=== PATIENT | male | born 1945 | race Asian ===

== ENCOUNTER 2018-06-22 18:33 | Inpatient (IN) | payer OTHER, BC ==
--- NOTE | 2018-06-22 19:27 | PDOC ---
History of Present Illness - General Chief Complaint: Cold Symptoms Stated Complaint: COLD SYMPTOMS Time Seen by Provider: 06/22/18 19:08 Past History - Past Medical History Allergies/Adverse Reactions: Allergies Allergy/AdvReac Type Severity Reaction Status Date / Time No Known Allergies Allergy Verified 06/22/18 18:48 COPD: No Diabetes: Yes HTN: Yes - Surgical History Cholecystectomy: No Lung Surgery: No - Immunization History Immunization Up to Date: No - Suicide/Smoking/Psychosocial Hx Smoking History: Never smoked Have you smoked in the past 12 months: No Information on smoking cessation initiated: No Hx Alcohol Use: No Drug/Substance Use Hx: No *Physical Exam - Vital Signs Last Vital Signs Temp Pulse Resp BP Pulse Ox 99.2 F 125 H 16 123/72 97 06/22/18 18:44 06/22/18 18:44 06/22/18 18:44 06/22/18 18:44 06/22/18 18:44 Moderate Sedation - Procedure Monitoring Vital Signs: Procedure Monitoring Vital Signs Temperature 99.2 F 06/22/18 18:44 Pulse Rate 125 H 06/22/18 18:44 Respiratory Rate 16 06/22/18 18:44 Blood Pressure 123/72 06/22/18 18:44 O2 Sat by Pulse Oximetry (%) 97 06/22/18 18:44 *DC/Admit/Observation/Transfer - Discharge Dispostion Condition at time of disposition: Stable - Referrals - Patient Instructions - Post Discharge Activity
[2018-06-22] MEDS ORDERED: ACETAMINOPHEN 500 MG TABLET (FP) PO ONE (19:53)
[2018-06-22] MEDS ORDERED: ALBUTEROL SO4 2.5/IPRATROPIUM 0.5 INH SOL 3 ML VIAL.NEB. NEB ONE ×3 (20:08→23:39)
[2018-06-22] MEDS ORDERED: CEFTRIAXONE 1 GM in DEXTROSE 5%-WATER - 50 ML IVPB ONE (20:09)
[2018-06-22] MEDS ORDERED: AZITHROMYCIN IVPB 500 MG in DEXTROSE 5%-WATER - 250 ML IVPB ONE (20:09)
[2018-06-22] MEDS ORDERED: ACETAMINOPHEN 1000 MG/100 ML VIAL (NON FORMULARY) IVPB ONE (20:11)
[2018-06-22 20:20] LABS: BASO % 0.6 % (0-2.0); EOS % 3.3 % (0-4.5); HEMATOCRIT 37.9 % (35.4-49); LYMPH % 16.5 % (8-40); MCH 28.4 pg (25.7-33.7); MCHC 34.4 g/dl (32.0-35.9); MEAN CELL VOLUME 82.7 fl (80-96); MEAN PLT VOLUME 7.8 fl (7.5-11.1); MONO % 16.8 % (3.8-10.2); NEUT % 62.8 % (42.8-82.8); PLATELET COUNT 266 K/MM3 (134-434); RBC 4.58 M/mm3 (4.00-5.60); WHITE BLOOD COUNT 8.7 K/mm3 (4.0-10.0)
[2018-06-22] MEDS ORDERED: ACETAMINOPHEN INJECTION 100 ML IVPB ONE (20:21)
[2018-06-22] MEDS ORDERED: AZITHROMYCIN IVPB 500 MG/250 ML BAG IVPB ONE (20:21)
[2018-06-22 20:22] LABS: VENOUS PC02 46.2 mmHg (38-52); VENOUS PH 7.36 (7.32-7.42); VENOUS PO2 37.1 mmHg (28-48)
[2018-06-22] MEDS ORDERED: CEFTRIAXONE 1 GM/50 ML BAG ONE (20:22)
--- NOTE | 2018-06-22 20:26 | PDOC ---
History of Present Illness <Miranda Craig - Last Filed: 06/22/18 21:17> - General History Source: Patient Exam Limitations: No Limitations - History of Present Illness Initial Comments: 06/22/18 20:09 Patient is a 73-year-old male with history of Laughlin's palsy left, diabetes, HTN, brought in by family for complaint of a cough 3 weeks. Patient was away visiting in [place] when he developed this cough, initially was productive of yellow sputum, however now nonproductive. States he's been having body ache, felt hot and cold, but did not take his temperature. Yesterday, had several doses of Motrin. Denies dysuria, nausea, vomiting, chest pain. PMHX: as above. GENERAL/CONSTITUTIONAL: HEAD, EYES, EARS, NOSE AND THROAT: [No change in vision. No ear pain or discharge. No sore throat.] CARDIOVASCULAR: [No chest pain or shortness of breath.] RESPIRATORY: (+) cough, wheezing, (-) hemoptysis.] GASTROINTESTINAL: [No nausea, vomiting, diarrhea or constipation. No rectal bleeding.] GENITOURINARY: [No dysuria, frequency, or change in urination.] MUSCULOSKELETAL: (+) joint or muscle pain. (+) neck or back pain.] SKIN AND BREASTS: [No rash or easy bruising.] NEUROLOGIC: [No headache, vertigo, loss of consciousness, or loss of sensation.] PSYCHIATRIC: [No depression or anxiety.] ENDOCRINE: [No increased thirst. No abnormal weight change.] HEMATOLOGIC/LYMPHATIC: [No anemia, easy bleeding, or history of blood clots.] ALLERGIC/IMMUNOLOGIC: [No hives or skin allergy. No latex allergy.] GENERAL: [The patient is awake, alert, and fully oriented, in no acute distress. ] HEAD: [Normal with no signs of trauma.] EYES: [Pupils equal, round and reactive to light, extraocular movements intact, sclera anicteric, conjunctiva clear.] ENT: [Ears normal, nares patent, oropharynx clear without exudates. Moist mucous membranes.] NECK: [Normal range of motion, supple without lymphadenopathy, JVD, or masses.] LUNGS: (+) wheezing left, no crackles.] HEART: [Regular rate and rhythm, normal S1 and S2 without murmur, rub.] ABDOMEN: [Soft, nontender, normoactive bowel sounds. No guarding, no rebound. No masses.] EXTREMITIES: [Normal range of motion, no edema. No clubbing or cyanosis. No cords, erythema, or tenderness.] NEUROLOGICAL: [Cranial nerves II through XII grossly intact. Normal speech, normal gait.] PSYCH: [Normal mood, normal affect.] SKIN: [Warm, Dry, normal turgor, no rashes or lesions noted.] <Rinku Griffin - Last Filed: 06/22/18 22:22> <Halley Rehman - Last Filed: 06/23/18 00:47> - General Chief Complaint: Cold Symptoms Stated Complaint: COLD SYMPTOMS Time Seen by Provider: 06/22/18 19:08 Past History <Miranda Craig - Last Filed: 06/22/18 21:17> - Past Medical History COPD: No Diabetes: Yes HTN: Yes - Surgical History Cholecystectomy: No Lung Surgery: No - Immunization History Immunization Up to Date: No - Suicide/Smoking/Psychosocial Hx Smoking History: Never smoked Have you smoked in the past 12 months: No Information on smoking cessation initiated: No Hx Alcohol Use: No Drug/Substance Use Hx: No <Rinku Griffin - Last Filed: 06/22/18 22:22> <Halley Rehman - Last Filed: 06/23/18 00:47> - Past Medical History Allergies/Adverse Reactions: Allergies Allergy/AdvReac Type Severity Reaction Status Date / Time No Known Allergies Allergy Verified 06/22/18 18:48 Home Medications: Ambulatory Orders Glipizide 5 mg PO DAILY 06/22/18 Losartan Potassium 100 mg PO DAILY 06/22/18 Metformin HCl [Glucophage] 500 mg PO BID 06/22/18 Sitagliptin Phosphate [Januvia] 50 mg PO DAILY 06/22/18 *Physical Exam - Vital Signs Last Vital Signs Temp Pulse Resp BP Pulse Ox 100.8 F H 115 H 22 H 131/61 97 06/22/18 21:00 06/22/18 21:00 06/22/18 21:00 06/22/18 21:00 06/22/18 21:00 <Miranda Craig - Last Filed: 06/22/18 21:17> - Vital Signs Last Vital Signs Temp Pulse Resp BP Pulse Ox 101 F H 119 H 20 135/67 97 06/22/18 19:38 06/22/18 19:38 06/22/18 19:38 06/22/18 19:38 06/22/18 19:38 <Rinku Griffin - Last Filed: 06/22/18 22:22> - Vital Signs Last Vital Signs Temp Pulse Resp BP Pulse Ox 101 F H 119 H 20 135/67 97 06/22/18 19:38 06/22/18 19:38 06/22/18 19:38 06/22/18 19:38 06/22/18 19:38 <Halley Rehman - Last Filed: 06/23/18 00:47> Moderate Sedation - Procedure Monitoring Vital Signs: Procedure Monitoring Vital Signs Temperature 100.8 F H 06/22/18 21:00 Pulse Rate 115 H 06/22/18 21:00 Respiratory Rate 22 H 06/22/18 21:00 Blood Pressure 131/61 06/22/18 21:00 O2 Sat by Pulse Oximetry (%) 97 06/22/18 21:00 <Miranda Craig - Last Filed: 06/22/18 21:17> - Procedure Monitoring Vital Signs: Procedure Monitoring Vital Signs Temperature 101 F H 06/22/18 19:38 Pulse Rate 119 H 06/22/18 19:38 Respiratory Rate 20 06/22/18 19:38 Blood Pressure 135/67 06/22/18 19:38 O2 Sat by Pulse Oximetry (%) 97 06/22/18 19:38 <Rinku Griffin - Last Filed: 06/22/18 22:22> - Procedure Monitoring Vital Signs: Procedure Monitoring Vital Signs Temperature 101 F H 06/22/18 19:38 Pulse Rate 119 H 06/22/18 19:38 Respiratory Rate 20 06/22/18 19:38 Blood Pressure 135/67 06/22/18 19:38 O2 Sat by Pulse Oximetry (%) 97 06/22/18 19:38 <Halley Rehman - Last Filed: 06/23/18 00:47> ED Treatment Course - LABORATORY CBC & Chemistry Diagram: 06/22/18 19:58 06/22/18 19:58 - ADDITIONAL ORDERS Additional order review: Laboratory Results 06/22/18 06/22/1819 19:58 19:58 19:58 PT with INR 13.10 H INR 1.11 H VBG pH 7.36 POC VBG pCO2 46.2 POC VBG pO2 37.1 Mixed VBG HCO3 25.4 H Sodium Potassium Chloride Carbon Dioxide Anion Gap BUN Creatinine Creat Clearance w eGFR Random Glucose Lactic Acid Calcium Total Bilirubin AST ALT Alkaline Phosphatase Creatine Kinase 392 H Creatine Kinase Index 0.9 CK-MB (CK-2) 3.8 H Troponin I 0.08 H Total Protein Albumin 06/22/18 06/22/18 19:58 19:58 PT with INR INR VBG pH POC VBG pCO2 POC VBG pO2 Mixed VBG HCO3 Sodium 129 L Potassium 4.6 Chloride 95 L Carbon Dioxide 23 Anion Gap 11 BUN 10 Creatinine 0.7 Creat Clearance w eGFR > 60 Random Glucose 179 H Lactic Acid 3.9 H* Calcium 8.9 Total Bilirubin 0.3 AST 26 ALT 32 Alkaline Phosphatase 63 Creatine Kinase Creatine Kinase Index CK-MB (CK-2) Troponin I Total Protein 7.6 Albumin 3.6 06/22/18 19:58 RBC 4.58 MCV 82.7 MCHC 34.4 RDW 14.0 MPV 7.8 Neutrophils % 62.8 Lymphocytes % 16.5 Monocytes % 16.8 H Eosinophils % 3.3 Basophils % 0.6 - Medications Given in the ED: ED Medications Discontinued Medications Generic Name Dose Route Start Last Admin Trade Name Nohelia PRN Reason Stop Dose Admin Acetaminophen 975 mg 06/22/18 19:53 06/22/18 20:46 Tylenol - PO 06/22/18 19:54 Not Given ONCE ONE Acetaminophen 1,000 mg 06/22/18 20:11 06/22/18 20:35 Ofirmev Injection - IVPB 06/22/18 20:12 1,000 mg ONCE ONE Administration Albuterol/Ipratropium 1 amp 06/22/18 20:08 06/22/18 20:25 Duoneb - NEB 06/22/18 20:09 1 amp ONCE ONE Administration Aspirin 325 mg 06/22/18 21:02 06/22/18 21:09 Ecotrin - PO 06/22/18 21:03 325 mg ONCE ONE Administration Azithromycin 500 mg/ Dextrose 250 mls @ 250 mls/hr 06/22/18 20:09 06/22/18 21 :01 IVPB 06/22/18 21:08 250 mls/hr ONCE ONE Administration Ceftriaxone Sodium 1 gm/ 50 mls @ 100 mls/hr 06/22/18 20:09 06/22/18 20:35 Dextrose IVPB 06/22/18 20:38 100 mls/hr ONCE ONE Administration Metoprolol Tartrate 5 mg 06/22/18 21:02 06/22/18 21:00 Lopressor Injection - IVPUSH 06/22/18 21:03 5 mg ONCE ONE Administration - Additional Consults Time Called: 21:17 (called service for [facility] cardiology) Consult/PCP: Dr. Lenz (Cardiology- [facility]) <Miranda Craig - Last Filed: 06/22/18 21:17> - LABORATORY CBC & Chemistry Diagram: 06/22/18 19:58 06/22/18 19:58 <Rinku Griffin - Last Filed: 06/22/18 22:22> - LABORATORY CBC & Chemistry Diagram: 06/22/18 19:58 06/22/18 19:58 - ADDITIONAL ORDERS Additional order review: Laboratory Results 06/22/18 06/22/18 06/22/18 19:58 19:58 19:58 PT with INR 13.10 H INR 1.11 H VBG pH 7.36 POC VBG pCO2 46.2 POC VBG pO2 37.1 Mixed VBG HCO3 25.4 H Sodium Potassium Chloride Carbon Dioxide Anion Gap BUN Creatinine Creat Clearance w eGFR Random Glucose Calcium Total Bilirubin AST ALT Alkaline Phosphatase Creatine Kinase 392 H Troponin I 0.08 H Total Protein Albumin 06/22/18 19:58 PT with INR INR VBG pH POC VBG pCO2 POC VBG pO2 Mixed VBG HCO3 Sodium 129 L Potassium 4.6 Chloride 95 L Carbon Dioxide 23 Anion Gap 11 BUN 10 Creatinine 0.7 Creat Clearance w eGFR > 60 Random Glucose 179 H Calcium 8.9 Total Bilirubin 0.3 AST 26 ALT 32 Alkaline Phosphatase 63 Creatine Kinase Troponin I Total Protein 7.6 Albumin 3.6 06/22/18 19:58 RBC 4.58 MCV 82.7 MCHC 34.4 RDW 14.0 MPV 7.8 Neutrophils % 62.8 Lymphocytes % 16.5 Monocytes % 16.8 H Eosinophils % 3.3 Basophils % 0.6 - Medications Given in the ED: ED Medications Discontinued Medications Generic Name Dose Route Start Last Admin Trade Name Nohelia PRN Reason Stop Dose Admin Acetaminophen 975 mg 06/22/18 19:53 06/22/18 20:46 Tylenol - PO 06/22/18 19:54 Not Given ONCE ONE Acetaminophen 1,000 mg 06/22/18 20:11 06/22/18 20:35 Ofirmev Injection - IVPB 06/22/18 20:12 1,000 mg ONCE ONE Administration Albuterol/Ipratropium 1 amp 06/22/18 20:08 06/22/18 20:25 Duoneb - NEB 06/22/18 20:09 1 amp ONCE ONE Administration Ceftriaxone Sodium 1 gm/ 50 mls @ 100 mls/hr 06/22/18 20:09 06/22/18 20:35 Dextrose IVPB 06/22/18 20:38 100 mls/hr ONCE ONE Administration <Halley Rehman - Last Filed: 06/23/18 00:47> Medical Decision Making - Medical Decision Making 06/22/18 20:09 Patient is a 73-year-old male with history of Laughlin's palsy left, diabetes, HTN, brought in by family for complaint of a cough 3 weeks. Patient was away visiting in [place] when he developed this cough, initially was productive of yellow sputum, however now nonproductive. States he's been having body ache, felt hot and cold, but did not take his temperature. Yesterday, had several doses of Motrin. Denies dysuria, nausea, vomiting. Symptoms consistent with SIRs labs, cxr, ua, ivf, tylenol reasess 06/22/18 22:17 Labs reviewed noted to have elevated trop EKG ST rate 121, NAD, (-) ST-T wave changes cxr neg Na+ 129 will continue IVF will admit to hosp <Rinku Griffin - Last Filed: 06/22/18 22:22> - Medical Decision Making 06/22/18 21:08 EKG normal; HR still 120 despite ofirmev; and IVF; prob spilling enzymes due to tachy. We are treating with betablocker and asa; will repeat EKG and get a cardio consult. Pt was treated with zithromax/ceftriaxone, as he has cough - will rx atypical, but will also rx typhoid. 06/22/18 21:14 Cardio consult states not to rx with betablocker (we canceled the order of IVP) not to use heparin either, as pt has no clots or unstable anginal sx. We agree that this is demand ischemia. ICU accepted the patient 06/22/18 21:29 Dr. Cody GARRETT is aware; he is requesting hospitalist admission. <Halley Rehman - Last Filed: 06/23/18 00:47> *DC/Admit/Observation/Transfer <Miranda Craig - Last Filed: 06/22/18 21:17> <Rinku Griffin - Last Filed: 06/22/18 22:22> - Discharge Dispostion Decision to Admit order: Yes <Halley Rehman - Last Filed: 06/23/18 00:47> Diagnosis at time of Disposition: Tachycardia, Cough, Travel-related illness, Hyponatremia Myocardial infarction Qualifiers: Myocardial infarction type: unspecified Involved coronary artery: unspecified coronary artery Qualified Code(s): I21.9 - Acute myocardial infarction, unspecified Fever Qualifiers: Fever type: unspecified Qualified Code(s): R50.9 - Fever, unspecified Sepsis Qualifiers: Sepsis type: sepsis due to unspecified organism Qualified Code(s): A41.9 - Sepsis, unspecified organism - Discharge Dispostion Condition at time of disposition: Guarded
[2018-06-22 20:33] LABS: INR 1.11 (0.83-1.09); PROTHROMBIN TIME (PATIENT) 13.1 SEC (9.7-13.0)
[2018-06-22 20:51] LABS: ALBUMIN 3.6 g/dl (3.4-5.0); ALK PHOS 63 U/L (45-117); ANION GAP 11 MMOL/L (8-16); BILIRUBIN,TOTAL 0.3 mg/dL (0.2-1); BLOOD UREA NITROGEN 10 mg/dL (7-18); CALCIUM 8.9 mg/dL (8.5-10.1); CHLORIDE 95 mmol/L (98-107); CO2 23 mmol/L (21-32); CREATININE 0.7 mg/dL (0.55-1.3); GLUCOSE,RANDOM 179 mg/dL (74-106); POTASSIUM 4.6 mmol/L (3.5-5.1); SGOT/AST 26 U/L (15-37); SGPT/ALT 32 U/L (13-61); SODIUM 129 mmol/L (136-145); TOT PROT 7.6 g/dl (6.4-8.2)
[2018-06-22] MEDS ORDERED: METOPROLOL TARTRATE 5 MG/5 ML VIAL IVPUSH ONE (21:02)
[2018-06-22] MEDS ORDERED: ASPIRIN 325 MG ENTERIC COATED TABLET (FP) PO ONE (21:02)
[2018-06-22] MEDS ORDERED: ASPIRIN 325 MG ENTERIC COATED TABLET (FP) ONE (21:06)
[2018-06-22] MEDS ORDERED: METOPROLOL TARTRATE 5 MG/5 ML VIAL ONE (21:06)
[2018-06-22] MEDS ORDERED: SODIUM CHLORIDE 0.9% 500 ML INFUS.BAG IV ONE (21:12)
[2018-06-22 21:50] LABS: URINE APPEARANCE CLEAR; URINE BILIRUBIN NEGATIVE (<2.0 mg/dL); URINE COLOR YELLOW; URINE GLUCOSE (UA) 1+ (NEGATIVE); URINE KETONE NEGATIVE (NEGATIVE); URINE LEUK ESTERASE NEGATIVE (NEGATIVE); URINE NITRITE NEGATIVE (NEGATIVE); URINE PROTEIN NEGATIVE (NEGATIVE); URINE UROBILINOGEN NEGATIVE mg/dL (0.2-1.0)
--- NOTE | 2018-06-22 23:14 | PN ---
Teaching Attending Note Name of Resident: Lindsey Cosby ATTENDING PHYSICIAN STATEMENT I saw and evaluated the patient. I reviewed the resident's note and discussed the case with the resident. I agree with the resident's findings and plan as documented. SUBJECTIVE: OBJECTIVE: AAOX3 s1 and s2 RRR abdomen soft non-tender lungs CTA good air entry no edema dry mucous membrane ASSESSMENT AND PLAN: 73 y/o male with hx of CAD, HTN, DL, and DM presented for productive cough initially and now dry cough that has been going on for the past few weeks prior to his arrival from [facility], patient stated has been feeling warm and the fever is not resolving and decided to come to the ER for further evaluation. patient was found to have SIRS with sepsis, metabolic acidosis 2/2 lactic acidosis, elevated troponin 2.2 to tachycardia plan: admit to the MICU SIRS with sepsis - start patient on levofloxacin 750mg daily - ID consultation Elevated troponin 2/2 to type II CO - patient is tachycardic 2/2 to sepsis - iv fluid hydration - trend the tropnin - trend ECG - patient might benefit from asprin - no heparin drip at this time - f/u with cardiology if the troponin are elevated - obtain echocardiogram Metabolic acidosis 2/2 to elevated lactic acid - IVF 20ml/kg/hr - trend lactic acid x3 hours until it clears Hypotension 2/2 sepsis: - IVF hydration - patient might require central line and vasopressors if there is no response to the fluids DM: ISS - better control of Diabetes in septic patient HTN; - hold medication DL c/w statin CAD - c/w asprin if there is no bleeding
[2018-06-22] MEDS ORDERED: SODIUM CHLORIDE 1,000 ML IV SCH (23:15)
[2018-06-22] MEDS ORDERED: SODIUM CHLORIDE 1,000 ML IV STA (23:25)
--- NOTE | 2018-06-22 23:28 | HP ---
CHIEF COMPLAINT: cough x 2 weeks PCP: HISTORY OF PRESENT ILLNESS: 73 y/o M with PMH L sided Laughlin's Palsy, Type 2 DM, HTN, who presents to the ED c /o two week hx of cough. As per pt and family, he recently returned from [place], initially with a productive cough with yellow sputum (no blood), which has since become nonproductive. During this time, he also endorses subjective fevers and generalized myalgias. His sx were not alleviated with multiple doses of advil; he took two yesterday, and two the day prior. Most of hx as per family members. Denies sick contacts, current FISCHER, chills, SOB, chest pain or pressure, or changes in urinary or bowel function. ER course was notable for: (1) Tylenol (2) Duonebs (3) Cef, zithro (4) Lopressor 5mg IVP x 1 (5) NS Recent Travel: from [place] PAST MEDICAL HISTORY: as above PAST SURGICAL HISTORY: denies Social History: Smoking: denies Alcohol: denies Drugs: denies Family History: Allergies No Known Allergies Allergy (Verified 06/22/18 18:48) HOME MEDICATIONS: Home Medications Medication Instructions Recorded Glipizide 5 mg PO DAILY 06/22/18 Losartan Potassium 100 mg PO DAILY 06/22/18 Metformin HCl [Glucophage] 500 mg PO BID 06/22/18 Sitagliptin Phosphate [Januvia] 50 mg PO DAILY 06/22/18 verified with family at bedside REVIEW OF SYSTEMS CONSTITUTIONAL: +subjective fever Absent: fever, chills, diaphoresis, generalized weakness, malaise, loss of appetite, weight change HEENT: Absent: rhinorrhea, nasal congestion, throat pain, throat swelling, difficulty swallowing, mouth swelling, ear pain, eye pain, visual changes CARDIOVASCULAR: Absent: chest pain, syncope, palpitations, irregular heart rate, lightheadedness , peripheral edema RESPIRATORY: +cough Absent: cough, shortness of breath, dyspnea with exertion, orthopnea, wheezing, stridor, hemoptysis GASTROINTESTINAL: Absent: abdominal pain, abdominal distension, nausea, vomiting, diarrhea, constipation, melena, hematochezia GENITOURINARY: Absent: dysuria, frequency, urgency, hesitancy, hematuria, flank pain, genital pain MUSCULOSKELETAL: +myalgia Absent: myalgia, arthralgia, joint swelling, back pain, neck pain SKIN: Absent: rash, itching, pallor HEMATOLOGIC/IMMUNOLOGIC: Absent: easy bleeding, easy bruising, lymphadenopathy, frequent infections ENDOCRINE: Absent: unexplained weight gain, unexplained weight loss, heat intolerance, cold intolerance NEUROLOGIC: Absent: headache, focal weakness or paresthesias, dizziness, unsteady gait, seizure, mental status changes, bladder or bowel incontinence PSYCHIATRIC: Absent: anxiety, depression, suicidal or homicidal ideation, hallucinations. PHYSICAL EXAMINATION Vital Signs 06/22/18 06/22/18 06/22/18 18:44 19:38 21:00 Temperature 99.2 F 101 F H 100.8 F H Pulse Rate 125 H Pulse Rate [ 119 H 115 H Apical] Respiratory 16 20 22 H Rate Blood Pressure 123/72 131/61 Blood Pressure 135/67 131/61 [Right Arm] O2 Sat by Pulse 97 97 97 Oximetry (%) 06/22/18 06/22/18 21:29 21:56 Temperature 99.8 F H Pulse Rate Pulse Rate [ 112 H 112 H Apical] Respiratory 20 22 H Rate Blood Pressure Blood Pressure 101/55 L 97/58 L [Right Arm] O2 Sat by Pulse 99 96 Oximetry (%) GENERAL: Pleasant. resting in bed, on venti-mask HEAD: Normal with no signs of trauma. EYES: Pupils equal, round and reactive to light, extraocular movements intact, sclera anicteric, conjunctiva clear. EARS, NOSE, THROAT: Ears normal, nares patent, oropharynx clear without exudates. Dry mucous membranes NECK: Normal range of motion, supple without lymphadenopathy, JVD, or masses. LUNGS: +intermittent cough. with scattered wheezes appreciated anteriorly. otherwise CTA. no accessory m usage HEART: Regular rate and rhythm, normal S1 and S2 without murmur, rub or gallop. ABDOMEN: Soft, obese, nontender, not distended, normoactive bowel sounds UPPER EXTREMITIES: 2+ pulses, warm, well-perfused. No cyanosis. No clubbing. No peripheral edema. NEUROLOGICAL: Cranial nerves II-XII intact. PSYCHIATRIC: Cooperative. Good eye contact. SKIN: Warm, dry, normal turgor Laboratory Results 06/22/18 06/22/18 06/22/18 18:50 18:50 19:58 WBC 8.7 Hgb 13.0 Hct 37.9 Plt Count 266 Urine Glucose (UA) Influenza A (Rapid) Negative Influenza B (Rapid) Negative Group A Strep Rapid Negative 06/22/18 06/22/18 06/22/18 19:58 19:58 20:45 Plt Count Lactic Acid 3.9 H* Creatine Kinase 392 H CK-MB (CK-2) 3.8 H Troponin I 0.08 H Urine Glucose (UA) 1+ H Influenza A (Rapid) 06/22/18 06/22/18 22:05 22:05 Lactic Acid 2.9 H* Creatine Kinase CK-MB (CK-2) Troponin I 0.10 H CXR: without evidence of effusions, or infiltrates - my read. official read pending EKG: sinus tach, vent rate 121bpm, without st-t wave changes. qtc 441ms ASSESSMENT/PLAN: 73 y/o M with PMH L sided Laughlin's Palsy, Type 2 DM, HTN, who presents to the ED c /o two week hx of a nonproductive cough. #sepsis 2/2 possible PNA -without white ct, however tachycardic, possible source infection - PNA as with cough. not seen on CXR however may be developing -cont CAP tx. received cef, zithro in ED. c/w levaquin 750mg IVPB qd -f/u blood, urine, sputum, throat cx, legionella -adequate vol resuscitation - will give 1L bolus, then start on 125 cc/hr. cont to follow lactic, has been trending down. -f/u AM CXR -ID consult: Dr. Herron #elevated troponin likely 2/2 demand from sepsis -likely 2/2 sepsis, however will cont to trend. currently asymptomatic without chest pain -f/u serial EKGs to check if develop ST-T wave changes -0.08>0.10 -will contact cardio if does not improve -f/u ECHO to assess for LV function temitope in setting of giving fluids #type 2 DM -ISS -BGM ACHS #HTN -will hold losartan at this time d/t labile BP -may require pressors if does not improve #likely CAD -c/w asa 81mg qd -f/u lipid profile. based on ASCVD can then start statin if needed #hyponatremia -f/u legionella Ag -cont with IV NS, monitor #F/E/N IV NS : will give 1L NS and then start on 125 cc/hr. continue to follow lytes NPO #PPX Hep 5000 SQ TID #Dispo admit to ICU as pt with labile BP may require pressor support if does not improve Visit type - Emergency Visit Emergency Visit: Yes ED Registration Date: 06/22/18 Care time: The patient presented to the Emergency Department on the above date and was hospitalized for further evaluation of their emergent condition. - New Patient This patient is new to me today: Yes Date on this admission: 06/23/18 - Critical Care Critical Care patient: Yes Total Critical Care Time (in minutes): 40 Critical Care Statement: The care of this patient involved high complexity decision making to prevent further life threatening deterioration of the patient 's condition and/or to evaluate & treat vital organ system(s) failure or risk of failure.
--- NOTE | 2018-06-22 23:55 | CONSULT ---
Consult Consult Specialty:: ICU Referred by:: aissatou Reason for Consultation:: hypotensive, troponinemia - History of Present Illness Chief Complaint: productive cough History of Present Illness: 73 yr old man with DM and HTN presents with fever and productive cough for past 3 weeks since returning from [place]. Cough and intermittent fevers began in [place]. phlegm is thick yellow. has been able to eat/drink and toilet per his usual without constipation/ diarrhea/hematuria/dysuria/nausea/vomiting. denies farm animal contact, no other family members are sick, no hx of TB in the family. denies chest pain, palpitations, headache, dizziness complaint with his medication, takes an ARB. denies drinking excess fluids. PMHx: HTN, NIDDM. denies hx of CT, CVA Surghx: denies Soc hx: denied smoking, ETOH, drug use - History Source History Provided By: Patient, Family Member, Medical Record Limitations to Obtaining History: No Limitations - Past Medical History Cardio/Vascular: Yes: HTN - Alcohol/Substance Use Hx Alcohol Use: No - Smoking History Smoking history: Former smoker Have you smoked in the past 12 months: No Home Medications - Allergies Allergies/Adverse Reactions: Allergies Allergy/AdvReac Type Severity Reaction Status Date / Time No Known Allergies Allergy Verified 06/22/18 18:48 - Home Medications Home Medications: Ambulatory Orders Glipizide 5 mg PO DAILY 06/22/18 Losartan Potassium 100 mg PO DAILY 06/22/18 Metformin HCl [Glucophage] 500 mg PO BID 06/22/18 Sitagliptin Phosphate [Januvia] 50 mg PO DAILY 06/22/18 Aspirin [ASA -] 81 mg PO DAILY 30 Days #30 tab.chew 06/26/18 Atorvastatin Ca [Lipitor] 40 mg PO HS 30 Days #30 tablet 06/26/18 Azithromycin 500 mg PO DAILY 2 Days #2 tablet 06/26/18 Cefuroxime Axetil [Ceftin -] 500 mg PO Q12H 2 Days #4 tablet 06/26/18 Review of Systems - Review of Systems Constitutional: reports: Fever. denies: Loss of Appetite, Weakness Eyes: reports: No Symptoms HENT: reports: No Symptoms Neck: reports: No Symptoms Cardiovascular: denies: Chest Pain, Palpitations, Shortness of Breath Respiratory: reports: Cough. denies: Hemoptysis, SOB on Exertion, Wheezing Gastrointestinal: reports: No Symptoms Genitourinary: denies: Dysuria, Flank Pain, Hematuria Neurological: reports: No Symptoms Endocrine: reports: No Symptoms Hematology/Lymphatic: reports: No Symptoms Physical Exam Vital Signs: Vital Signs Temperature 99.8 F H 06/22/18 21:56 Pulse Rate 101 H 06/22/18 23:29 Respiratory Rate 29 H 06/22/18 23:29 Blood Pressure 112/55 L 06/22/18 23:29 O2 Sat by Pulse Oximetry (%) 94 L 06/22/18 23:29 Constitutional: Yes: No Distress, Calm Eyes: Yes: Conjunctiva Clear, EOM Intact, PERRL HENT: Yes: Atraumatic, Normocephalic Neck: Yes: Supple, Trachea Midline. No: Lymphadenopathy, Thyromegaly Cardiovascular: Yes: Tachycardia, S1, S2. No: Murmur Respiratory: Yes: Regular, CTA Bilaterally Gastrointestinal: Yes: Normal Bowel Sounds, Soft, Distention Musculoskeletal: Yes: WNL Extremities: Yes: WNL Edema: No Peripheral Pulses WNL: Yes Neurological: Yes: Alert, Oriented Labs: CBC, BMP 06/22/18 19:58 06/22/18 19:58 Assessment/Plan 73 yr old man with DM, HTN presents with productive cough and fever returning from international travel found to be tachycardic with elevated troponins and hyponatremia Cardiovascular - elevated trops and tachycardia likely related to fever - trend troponins, no EKG changes, unlikely to be ACS. likely deman ischemia, could be from volume depletion/tachycardia+fever+hypotension - defer betablockers at this time - IVF - echo Renal - hyponatremia - unclear etiology, pt appears euvolemic. pt denies hx of hyponatremia - has received IVF, if no improvement in the morning will order further urine studies/investigation - r/o legionella - hold ARB in setting of labile BP and volume resuscitation ID - consulted dr. thacker - broad spect coverage for fever and cough with azithro, levaquin and rocephin - pending blood and urine cultures FEN IVF VTE prophylaxis - heparin TID
[2018-06-23] MEDS ORDERED: MENTHOL/PHENOL 1 EACH UD MM PRN (00:11)
[2018-06-23] MEDS: guaiFENesin/D-M SUGAR-FREE/ACLHOL-FREE 118 ML BOTTLE PO PRN ×5 (01:15→21:30)
[2018-06-23] MEDS ORDERED: SODIUM CHLORIDE 1,000 ML IV SCH ×2 (05:00→07:17)
[2018-06-23] MEDS: HEPARIN NA (PORCINE) 5,000 UNITS/ML 1ML VIAL SQ SCH ×3 (05:40→23:32)
[2018-06-23 05:46] LABS: BASO % 0.5 % (0-2.0); EOS % 1.6 % (0-4.5); HEMATOCRIT 34.1 % (35.4-49); HEMOGLOBIN 11.7 GM/dL (11.7-16.9); LYMPH % 26.4 % (8-40); MCH 28.2 pg (25.7-33.7); MCHC 34.3 g/dl (32.0-35.9); MEAN CELL VOLUME 82.2 fl (80-96); MEAN PLT VOLUME 7.5 fl (7.5-11.1); MONO % 20.1 % (3.8-10.2); NEUT % 51.4 % (42.8-82.8); PLATELET COUNT 234 K/MM3 (134-434); RBC 4.15 M/mm3 (4.00-5.60); RDW 13.8 % (11.9-15.9); WHITE BLOOD COUNT 5.9 K/mm3 (4.0-10.0)
[2018-06-23] MEDS: INSULIN SLIDING SCALE (NOVOLOG) 1 VIAL SQ SCH ×4 (06:14→23:32)
[2018-06-23 06:46] LABS: ANION GAP 5 MMOL/L (8-16); BLOOD UREA NITROGEN 8 mg/dL (7-18); CALCIUM 7.8 mg/dL (8.5-10.1); CHLORIDE 101 mmol/L (98-107); CO2 29 mmol/L (21-32); CREATININE 0.8 mg/dL (0.55-1.3); GLUCOSE,RANDOM 253 mg/dL (74-106); MAGNESIUM 1.7 mg/dL (1.8-2.4); POTASSIUM 4.6 mmol/L (3.5-5.1); SODIUM 135 mmol/L (136-145)
--- NOTE | 2018-06-23 07:55 | PN ---
Teaching Attending Note Name of Resident: Horace Pierre ATTENDING PHYSICIAN STATEMENT I saw and evaluated the patient. I reviewed the resident's note and discussed the case with the resident. I agree with the resident's findings and plan as documented. SUBJECTIVE: Feels comfortable c/o cough OBJECTIVE: Vital Signs Period Temp Pulse Resp BP Sys/Amador Pulse Ox Last 24 Hr 98.4 F-101 F 84-125 15-29 97-159/55-83 94-100 Elderly man not in distress c/o cough HEENT: Mm moist, no anemia, PERRLA EOMI NECK: No JVd No Bruit CHEST: CTA b/l CVS: S1S2 R ABD; no distention EXT: No edema feet , Pulses + ASSESSMENT COORDINATOR: AOx3 non focal LABS: CBC, BMP 06/23/18 05:15 06/23/18 05:15 Active Medications Aspirin (Asa -) 81 mg PO DAILY [facility] Last Admin: 06/23/18 09:27 Dose: 81 mg Chlorhexidine Gluconate (Hibiclens For Decolonization -) 1 applic TP HS [facility] Eucalyptus/Menthol/Phenol/Sorbitol (Cepastat Lozenge -) 1 each MM Q4H PRN PRN Reason: SORE THROAT Last Admin: 06/23/18 01:17 Dose: 1 each Guaifenesin (Diabetic Tussin Dm -) 5 ml PO Q4H PRN PRN Reason: COUGH Last Admin: 06/23/18 11:24 Dose: 5 ml Heparin Sodium (Porcine) (Heparin -) 5,000 unit SQ TID [facility] Last Admin: 06/23/18 13:03 Dose: 5,000 unit Sodium Chloride (Normal Saline -) 1,000 mls @ 100 mls/hr IV ASDIR [facility] Last Admin: 06/23/18 07:30 Dose: 100 mls/hr Azithromycin (Zithromax 500mg Ivpb (Pre-Docked)) 500 mg in 250 mls @ 250 mls/ hr IVPB DAILY [facility] Last Admin: 06/23/18 13:02 Dose: 250 mls/hr Ceftriaxone Sodium 2 gm/ (Dextrose) 100 mls @ 100 mls/hr IVPB DAILY [facility]; Protocol Last Admin: 06/23/18 13:14 Dose: 100 mls/hr Insulin Aspart (Novolog Vial Sliding Scale -) 1 vial SQ ACHS [facility]; Protocol Last Admin: 06/23/18 11:23 Dose: 2 unit Losartan Potassium (Cozaar -) 100 mg PO DAILY [facility] Last Admin: 06/23/18 09:27 Dose: 100 mg Mupirocin (Bactroban Ointment (For Decolonization) -) 1 applic NS BID [facility] Stop: 06/28/18 09:59 Last Admin: 06/23/18 09:26 Dose: 1 applic ASSESSMENT AND PLAN: 73 yrs old man with H/O HTN, T@DM recently came back from [place] present with 1 wk cough, URTI symptoms and fever elevated lactic acid border line HTn admitted for Sepsis with RTI Problem List - Problems (1) Sepsis Assessment/Plan: Low BP, Tachycardia, fever elevated Lactic acid received IV Hydration lactic acid trended normal, on IV Ceftriaxone and azithromycin F/U cultures Code(s): A41.9 - SEPSIS, UNSPECIFIED ORGANISM Qualifiers: Sepsis type: sepsis due to unspecified organism Qualified Code(s): A41.9 - Sepsis, unspecified organism (2) Elevated troponin I level Assessment/Plan: asymptomatic EKG unrearkable most likely Demand Ischemia F/U ECHO add Statina nd ASA Code(s): R74.8 - ABNORMAL LEVELS OF OTHER SERUM ENZYMES (3) HTN (hypertension) Assessment/Plan: Resume home meds Code(s): I10 - ESSENTIAL (PRIMARY) HYPERTENSION (4) T2DM (type 2 diabetes mellitus) Assessment/Plan: Hold Metformin F/U HBA!C and correction dose insulin. Code(s): E11.9 - TYPE 2 DIABETES MELLITUS WITHOUT COMPLICATIONS
[2018-06-23 08:43] LABS: CHOLESTEROL 159 mg/dL (50-200); HDL CHOLESTEROL 32 mg/dL (40-60); TRIGLYCERIDES 105 mg/dL (0-150)
[2018-06-23] MEDS ORDERED: MAGNESIUM SULF 50% (8.12 MEQ/2 ML-1 GM VIAL) IVPB ONE (08:45)
[2018-06-23] MEDS: MUPIROCIN 2% TOPICAL OINTMENT FOR DECOLONIZATION NS SCH ×2 (09:26→23:32)
[2018-06-23] MEDS: LOSARTAN POTASSIUM 50 MG TABLET (FP) PO SCH (09:27)
[2018-06-23] MEDS: ASPIRIN 81 MG CHEWABLE TABLETS PO SCH (09:27)
[2018-06-23 10:44] LABS: ACANTHOCYTES 0; ANISOCYTOSIS 0; HELMET CELLS 0; HOWELL-JOLLY BODIES 0; MACROCYTOSIS 0; OVALOCYTE 0; PLATELET ESTIMATE NORMAL; ROULEAU 0; SICKELED CELLS 0; TARGET CELLS 0; TEAR DROP CELLS 0; TOXIC GRANULATION 0
--- NOTE | 2018-06-23 10:48 | EKG ---
Test Reason : Blood Pressure : / mmHG Vent. Rate : 114 BPM Atrial Rate : 114 BPM P-R Int : 146 ms QRS Dur : 086 ms QT Int : 320 ms P-R-T Axes : 008 019 041 degrees QTc Int : 441 ms SINUS TACHYCARDIA OTHERWISE NORMAL ECG NO PREVIOUS ECGS AVAILABLE Confirmed by PATY PATRICK MD ([id number]) on 06/23/2018 10:47:37 AM Referred By: Confirmed By:PATY PATRICK MD
--- NOTE | 2018-06-23 10:48 | EKG ---
Test Reason : Blood Pressure : / mmHG Vent. Rate : 121 BPM Atrial Rate : 121 BPM P-R Int : 138 ms QRS Dur : 084 ms QT Int : 294 ms P-R-T Axes : 007 020 046 degrees QTc Int : 417 ms SINUS TACHYCARDIA OTHERWISE NORMAL ECG NO PREVIOUS ECGS AVAILABLE Confirmed by PATY PATRICK MD ([id number]) on 06/23/2018 10:48:03 AM Referred By: Confirmed By:PATY PATRICK MD
[2018-06-23] MEDS ORDERED: FLU VACCINE QUAD 60 MCG/0.5 ML (MDV 18-19) IM ONE (11:00)
--- NOTE | 2018-06-23 12:05 | PN ---
Progress Note (short form) - Note Progress Note: SUBJECTIVE Patient seen and examined at the bedside. No acute complaints. Denies chest pain , shortness of breath, or fever. Continues to have cough and reports that it is non-productive. HOD#2. OBJECTIVE Vital Signs Temperature 99 F 06/23/18 08:00 Pulse Rate 90 06/23/18 11:00 Respiratory Rate 20 06/23/18 11:00 Blood Pressure 155/70 06/23/18 11:00 O2 Sat by Pulse Oximetry (%) 98 06/23/18 09:00 General: Awake, alert, and fully oriented, in no acute distress Head: No signs of trauma Eyes: EOMI, sclera anicteric ENT: Moist mucus membranes Neck: Normal ROM, supple Lungs: Scattered rhonchi Cardio: Regular rhythm, S1 and S2 present Abdomen: Soft, nontender Extremities: Normal range of motion, Distal pulses present SKIN: Warm, Dry, normal turgor Neurologic: Cranial nerves II through XII grossly intact. Normal speech ASSESSMENT 73 yr old man with DM, HTN presents with productive cough and fever returning from international travel found to be tachycardic with elevated troponins, hyponatremia, and labile blood pressure. qSOFA=2 (for RR and BP). HOD#2 PLAN Patient is safe for transfer to telemetry CARDIO Elevated troponin, likely due to demand ischemia -Tpn=0.1 (from 0.1 and 0.08) -continue to trend q6h -EKG on 06/22/18 with sinus tachycardia but no ST depressions/elevations -Defer beta-blockers at this time -continue home ASA 81mg -f/u ECHO to assess for LV function temitope in setting of giving fluids PULM CXR without acute pathology R/o legionella Coverage with levaquin RENAL Hyponatremia, unclear etiology -Has received IV Fluids -Vm=810 (from 129) ENDO Chronic DM -BGM, NISS ID qSOFA=2, likely due to community-acquired pneumonia -lactate 1.3 (from 2.9) -Coverage with Levaquin -Pending blood and urine cultures -Blood parasites negative FEN Monitor electrolytes -Replete as needed Plan to advance diet today PPX DVT: Heparin GI: not needed at this time
--- NOTE | 2018-06-23 12:05 | PN ---
Teaching Attending Note Name of Resident: Alison Anne ATTENDING PHYSICIAN STATEMENT I saw and evaluated the patient. I reviewed the resident's note and discussed the case with the resident. I agree with the resident's findings and plan as documented. SUBJECTIVE: Patient seen and examined in the ICU. Awake and alert. Some congested cough. No CP. No GI symptoms. No hemoptysis. Intake & Output 06/20/18 06/21/18 06/22/18 06/23/18 23:59 23:59 23:59 23:59 Intake Total 1000 900 Balance 1000 900 Weight 160 lb Last Vital Signs Temp Pulse Resp BP Pulse Ox 99 F 90 20 155/70 98 06/23/18 08:00 06/23/18 11:00 06/23/18 11:00 06/23/18 11:00 06/23/18 09:00 Active Medications Aspirin (Asa -) 81 mg PO DAILY [facility] Last Admin: 06/23/18 09:27 Dose: 81 mg Calcium Gluconate (Calcium Gluconate 10% -) 1,000 mg IVPB ONCE ONE Stop: 06/23/18 12:31 Chlorhexidine Gluconate (Hibiclens For Decolonization -) 1 applic TP HS [facility] Eucalyptus/Menthol/Phenol/Sorbitol (Cepastat Lozenge -) 1 each MM Q4H PRN PRN Reason: SORE THROAT Last Admin: 06/23/18 01:17 Dose: 1 each Guaifenesin (Diabetic Tussin Dm -) 5 ml PO Q4H PRN PRN Reason: COUGH Last Admin: 06/23/18 11:24 Dose: 5 ml Heparin Sodium (Porcine) (Heparin -) 5,000 unit SQ TID [facility] Last Admin: 06/23/18 05:40 Dose: 5,000 unit Levofloxacin (Levaquin 750 Mg Premixed Ivpb -) 750 mg in 150 mls @ 100 mls/hr IVPB DAILY [facility]; Protocol Last Admin: 06/23/18 09:27 Dose: 100 mls/hr Sodium Chloride (Normal Saline -) 1,000 mls @ 100 mls/hr IV ASDIR [facility] Last Admin: 06/23/18 07:30 Dose: 100 mls/hr Insulin Aspart (Novolog Vial Sliding Scale -) 1 vial SQ ACHS [facility]; Protocol Last Admin: 06/23/18 11:23 Dose: 2 unit Losartan Potassium (Cozaar -) 100 mg PO DAILY [facility] Last Admin: 06/23/18 09:27 Dose: 100 mg Mupirocin (Bactroban Ointment (For Decolonization) -) 1 applic NS BID [facility] Stop: 06/28/18 09:59 Last Admin: 06/23/18 09:26 Dose: 1 applic Constitutional: Yes: No Distress, Calm Eyes: Yes: Conjunctiva Clear, EOM Intact, PERRL HENT: Yes: Atraumatic, Normocephalic Neck: Yes: Supple, Trachea Midline. No: Lymphadenopathy, Thyromegaly Cardiovascular: Yes: S1, S2. No: Murmur Respiratory: Yes: few scattered rhonchi, no wheeze Gastrointestinal: Yes: Normal Bowel Sounds, Soft, Distention Musculoskeletal: Yes: WNL Extremities: Yes: WNL Edema: No Peripheral Pulses WNL: Yes Neurological: Yes: Alert, Oriented Labs: Laboratory Results - last 24 hr 06/22/18 06/22/18 06/22/18 18:50 18:50 19:58 WBC 8.7 RBC 4.58 Hgb 13.0 Hct 37.9 MCV 82.7 MCH 28.4 MCHC 34.4 RDW 14.0 Plt Count 266 MPV 7.8 Absolute Neuts (auto) 5.5 Neutrophils % 62.8 Neutrophils % (Manual) Band Neutrophils % Lymphocytes % 16.5 Lymphocytes % (Manual) Monocytes % 16.8 H Monocytes % (Manual) Eosinophils % 3.3 Eosinophils % (Manual) Basophils % 0.6 Basophils % (Manual) Myelocytes % (Man) Promyelocytes % (Man) Blast Cells % (Manual) Nucleated RBC % 0 Metamyelocytes Hypochromia Toxic Granulation Dohle Bodies Platelet Estimate Polychromasia Poikilocytosis Basophilic Stippling Anisocytosis Microcytosis Macrocytosis Spherocytes Sickle Cells Target Cells Tear Drop Cells Ovalocytes Stomatocytes Helmet Cells [place] Bodies Sasabe Rings Favian Cells Acanthocytes (Spur) Rouleaux Fragmented RBCs Schistocytes PT with INR INR VBG pH POC VBG pCO2 POC VBG pO2 Mixed VBG HCO3 Sodium Potassium Chloride Carbon Dioxide Anion Gap BUN Creatinine Creat Clearance w eGFR POC Glucometer Random Glucose Lactic Acid Calcium Phosphorus Magnesium Total Bilirubin AST ALT Alkaline Phosphatase Creatine Kinase Creatine Kinase Index CK-MB (CK-2) Troponin I Total Protein Albumin Triglycerides Cholesterol Total LDL Cholesterol HDL Cholesterol Urine Color Urine Appearance Urine pH Ur Specific [place] Urine Protein Urine Glucose (UA) Urine Ketones Urine Blood Urine Nitrite Urine Bilirubin Urine Urobilinogen Ur Leukocyte Esterase Influenza A (Rapid) Negative Influenza B (Rapid) Negative Group A Strep Rapid Negative 06/22/18 06/22/18 06/22/18 19:58 19:58 19:58 WBC RBC Hgb Hct MCV MCH MCHC RDW Plt Count MPV Absolute Neuts (auto) Neutrophils % Neutrophils % (Manual) Band Neutrophils % Lymphocytes % Lymphocytes % (Manual) Monocytes % Monocytes % (Manual) Eosinophils % Eosinophils % (Manual) Basophils % Basophils % (Manual) Myelocytes % (Man) Promyelocytes % (Man) Blast Cells % (Manual) Nucleated RBC % Metamyelocytes Hypochromia Toxic Granulation Dohle Bodies Platelet Estimate Polychromasia Poikilocytosis Basophilic Stippling Anisocytosis Microcytosis Macrocytosis Spherocytes Sickle Cells Target Cells Tear Drop Cells Ovalocytes Stomatocytes Helmet Cells [place] Bodies [place] Rings Anson Cells Acanthocytes (Spur) Rouleaux Fragmented RBCs Schistocytes PT with INR INR VBG pH POC VBG pCO2 POC VBG pO2 Mixed VBG HCO3 Sodium 129 L Potassium 4.6 Chloride 95 L Carbon Dioxide 23 Anion Gap 11 BUN 10 Creatinine 0.7 Creat Clearance w eGFR > 60 POC Glucometer Random Glucose 179 H Lactic Acid 3.9 H* Calcium 8.9 Phosphorus Magnesium Total Bilirubin 0.3 AST 26 ALT 32 Alkaline Phosphatase 63 Creatine Kinase 392 H Creatine Kinase Index 0.9 CK-MB (CK-2) 3.8 H Troponin I 0.08 H Total Protein 7.6 Albumin 3.6 Triglycerides Cholesterol Total LDL Cholesterol HDL Cholesterol Urine Color Urine Appearance Urine pH Ur Specific [place] Urine Protein Urine Glucose (UA) Urine Ketones Urine Blood Urine Nitrite Urine Bilirubin Urine Urobilinogen Ur Leukocyte Esterase Influenza A (Rapid) Influenza B (Rapid) Group A Strep Rapid 06/22/18 06/22/18 06/22/18 19:58 19:58 20:45 WBC RBC Hgb Hct MCV MCH MCHC RDW Plt Count MPV Absolute Neuts (auto) Neutrophils % Neutrophils % (Manual) Band Neutrophils % Lymphocytes % Lymphocytes % (Manual) Monocytes % Monocytes % (Manual) Eosinophils % Eosinophils % (Manual) Basophils % Basophils % (Manual) Myelocytes % (Man) Promyelocytes % (Man) Blast Cells % (Manual) Nucleated RBC % Metamyelocytes Hypochromia Toxic Granulation Dohle Bodies Platelet Estimate Polychromasia Poikilocytosis Basophilic Stippling Anisocytosis Microcytosis Macrocytosis Spherocytes Sickle Cells Target Cells Tear Drop Cells Ovalocytes Stomatocytes Helmet Cells [place] Bodies [place] Rings Anson Cells Acanthocytes (Spur) Rouleaux Fragmented RBCs Schistocytes PT with INR 13.10 H INR 1.11 H VBG pH 7.36 POC VBG pCO2 46.2 POC VBG pO2 37.1 Mixed VBG HCO3 25.4 H Sodium Potassium Chloride Carbon Dioxide Anion Gap BUN Creatinine Creat Clearance w eGFR POC Glucometer Random Glucose Lactic Acid Calcium Phosphorus Magnesium Total Bilirubin AST ALT Alkaline Phosphatase Creatine Kinase Creatine Kinase Index CK-MB (CK-2) Troponin I Total Protein Albumin Triglycerides Cholesterol Total LDL Cholesterol HDL Cholesterol Urine Color Yellow Urine Appearance Clear Urine pH 5.0 Ur Specific [place] 1.024 Urine Protein Negative Urine Glucose (UA) 1+ H Urine Ketones Negative Urine Blood Negative Urine Nitrite Negative Urine Bilirubin Negative Urine Urobilinogen Negative Ur Leukocyte Esterase Negative Influenza A (Rapid) Influenza B (Rapid) Group A Strep Rapid 06/22/18 06/22/18 06/22/18 21:05 22:05 22:05 WBC RBC Hgb Hct MCV MCH MCHC RDW Plt Count MPV Absolute Neuts (auto) Neutrophils % Neutrophils % (Manual) Band Neutrophils % Lymphocytes % Lymphocytes % (Manual) Monocytes % Monocytes % (Manual) Eosinophils % Eosinophils % (Manual) Basophils % Basophils % (Manual) Myelocytes % (Man) Promyelocytes % (Man) Blast Cells % (Manual) Nucleated RBC % Metamyelocytes Hypochromia Toxic Granulation Dohle Bodies Platelet Estimate Polychromasia Poikilocytosis Basophilic Stippling Anisocytosis Microcytosis Macrocytosis Spherocytes Sickle Cells Target Cells Tear Drop Cells Ovalocytes Stomatocytes Helmet Cells [place] Bodies [place] Rings Favian Cells Acanthocytes (Spur) Rouleaux Fragmented RBCs Schistocytes PT with INR INR VBG pH POC VBG pCO2 POC VBG pO2 Mixed VBG HCO3 Sodium Potassium Chloride Carbon Dioxide Anion Gap BUN Creatinine Creat Clearance w eGFR POC Glucometer [phone] Random Glucose Lactic Acid 2.9 H* Calcium Phosphorus Magnesium Total Bilirubin AST ALT Alkaline Phosphatase Creatine Kinase 299 Creatine Kinase Index 0.9 CK-MB (CK-2) 2.9 Troponin I 0.10 H Total Protein Albumin Triglycerides Cholesterol Total LDL Cholesterol HDL Cholesterol Urine Color Urine Appearance Urine pH Ur Specific [place] Urine Protein Urine Glucose (UA) Urine Ketones Urine Blood Urine Nitrite Urine Bilirubin Urine Urobilinogen Ur Leukocyte Esterase Influenza A (Rapid) Influenza B (Rapid) Group A Strep Rapid 06/23/18 06/23/18 06/23/18 05:15 05:15 05:15 WBC 5.9 RBC 4.15 Hgb 11.7 Hct 34.1 L MCV 82.2 MCH 28.2 MCHC 34.3 RDW 13.8 Plt Count 234 MPV 7.5 Absolute Neuts (auto) 3.0 Neutrophils % 51.4 Neutrophils % (Manual) 55.6 Band Neutrophils % 1.0 Lymphocytes % 26.4 D Lymphocytes % (Manual) 22.2 Monocytes % 20.1 H Monocytes % (Manual) 14 H Eosinophils % 1.6 Eosinophils % (Manual) 1.0 Basophils % 0.5 Basophils % (Manual) 0.0 Myelocytes % (Man) 0 Promyelocytes % (Man) 0 Blast Cells % (Manual) 0 Nucleated RBC % 0 Metamyelocytes 0 Hypochromia 0 Toxic Granulation 0 Dohle Bodies 0 Platelet Estimate Normal Polychromasia 0 Poikilocytosis 0 Basophilic Stippling 0 Anisocytosis 0 Microcytosis 0 Macrocytosis 0 Spherocytes 0 Sickle Cells 0 Target Cells 0 Tear Drop Cells 0 Ovalocytes 0 Stomatocytes 0 Helmet Cells 0 [place] Bodies 0 [place] Rings 0 Favian Cells 0 Acanthocytes (Spur) 0 Rouleaux 0 Fragmented RBCs 0 Schistocytes 0 PT with INR INR VBG pH POC VBG pCO2 POC VBG pO2 Mixed VBG HCO3 Sodium 135 L Potassium 4.6 Chloride 101 Carbon Dioxide 29 Anion Gap 5 L BUN 8 Creatinine 0.8 Creat Clearance w eGFR > 60 POC Glucometer Random Glucose 253 H Lactic Acid Calcium 7.8 L Phosphorus 3.0 Magnesium 1.7 L Total Bilirubin AST ALT Alkaline Phosphatase Creatine Kinase Creatine Kinase Index CK-MB (CK-2) Troponin I 0.10 H Total Protein Albumin Triglycerides 105 Cholesterol 159 Total LDL Cholesterol 108 H HDL Cholesterol 32 L Urine Color Urine Appearance Urine pH Ur Specific [place] Urine Protein Urine Glucose (UA) Urine Ketones Urine Blood Urine Nitrite Urine Bilirubin Urine Urobilinogen Ur Leukocyte Esterase Influenza A (Rapid) Influenza B (Rapid) Group A Strep Rapid 06/23/18 06/23/18 06/23/18 05:47 09:31 11:09 WBC RBC Hgb Hct MCV MCH MCHC RDW Plt Count MPV Absolute Neuts (auto) Neutrophils % Neutrophils % (Manual) Band Neutrophils % Lymphocytes % Lymphocytes % (Manual) Monocytes % Monocytes % (Manual) Eosinophils % Eosinophils % (Manual) Basophils % Basophils % (Manual) Myelocytes % (Man) Promyelocytes % (Man) Blast Cells % (Manual) Nucleated RBC % Metamyelocytes Hypochromia Toxic Granulation Dohle Bodies Platelet Estimate Polychromasia Poikilocytosis Basophilic Stippling Anisocytosis Microcytosis Macrocytosis Spherocytes Sickle Cells Target Cells Tear Drop Cells Ovalocytes Stomatocytes Helmet Cells [place] Bodies [place] Rings Anson Cells Acanthocytes (Spur) Rouleaux Fragmented RBCs Schistocytes PT with INR INR VBG pH POC VBG pCO2 POC VBG pO2 Mixed VBG HCO3 Sodium Potassium Chloride Carbon Dioxide Anion Gap BUN Creatinine Creat Clearance w eGFR POC Glucometer [phone] Random Glucose Lactic Acid 1.3 Calcium Phosphorus Magnesium Total Bilirubin AST ALT Alkaline Phosphatase Creatine Kinase Creatine Kinase Index CK-MB (CK-2) Troponin I Total Protein Albumin Triglycerides Cholesterol Total LDL Cholesterol HDL Cholesterol Urine Color Urine Appearance Urine pH Ur Specific [place] Urine Protein Urine Glucose (UA) Urine Ketones Urine Blood Urine Nitrite Urine Bilirubin Urine Urobilinogen Ur Leukocyte Esterase Influenza A (Rapid) Influenza B (Rapid) Group A Strep Rapid Assessment/Plan Spesis due to a suspected Respiratory infection (?) Viral Illness DM HTN Resolving hypotension Recent travel history (+) Troponin likely due to demand ischemia Lactic acidosis ABX ABX per ID O2 as needed IVF Follow cultures Check ECHO ASA VTE prophylaxis Cardiac Telemetry monitoring Dr Montesinos Critical care time spent in reviewing chart, evaluating patient and formulating plan - 36 minutes.
[2018-06-23 12:26] LABS: URINE APPEARANCE CLEAR; URINE BILIRUBIN NEGATIVE (<2.0 mg/dL); URINE COLOR STRAW; URINE GLUCOSE (UA) 1+ (NEGATIVE); URINE KETONE NEGATIVE (NEGATIVE); URINE LEUK ESTERASE NEGATIVE (NEGATIVE); URINE NITRITE NEGATIVE (NEGATIVE); URINE PROTEIN NEGATIVE (NEGATIVE); URINE UROBILINOGEN NEGATIVE mg/dL (0.2-1.0)
[2018-06-23] MEDS ORDERED: CALCIUM GLUCONATE 10% - 1,000 MG/10 ML VIAL IVPB ONE (12:30)
--- NOTE | 2018-06-23 12:45 | PN ---
Progress Note (short form) - Note Progress Note: ID CONSULT DICTATED 73 y/o DIABETIC MALE ADMITTED W 2-3 WK HX DRY COUGH. RECENTLY RETURNED FROM [place]. CXR NO INFILTRATE ?VIRAL URI ? COMMUNITY ACQ V. ATYPICAL PNEUMONIA AWAIT C/S CONTINUE EMPIRIC CEFTRIAXONE/ ZITHROMAX
--- NOTE | 2018-06-23 12:48 | ECHO ---
Name: LOREE NDIAYE Exam:Adult Echocardiogram Study Date: 06/23/2018 10:44 AM Age: 73 yrs Reason For Study: Wall Motion Height: 64 in Weight: 160 lb BSA: 1.8 m2 MMode/2D Measurements & Calculations IVSd: 0.93 cm Ao root diam: 2.8 cm LVIDd: 3.5 cm LA dimension: 2.9 cm LVIDs: 2.5 cm LVPWd: 0.85 cm EDV(Teich): 52.3 ml ESV(Teich): 21.4 ml Doppler Measurements & Calculations MV E max miles: 107.0 cm/sec AI P1/2t: 599.5 msec MV A max miles: 111.6 cm/sec MV E/A: 0.96 MV dec time: 0.12 sec AI max miles: 199.5 cm/sec MR max miles: 338.0 cm/sec AI max P.9 mmHg MR max P.9 mmHg AI dec slope: 97.5 cm/sec2 Med Peak E' Miles: 7.0 cm/sec Med E/e': 15.4 Lat Peak E' Miles: 8.7 cm/sec Lat E/e': 12.3 Procedure A complete two-dimensional transthoracic echocardiogram was performed (2D, M-mode, Doppler and color flow Doppler). Left Ventricle The left ventricle is normal in size. Left ventricular systolic function is normal. Ejection Fraction = 60- 65%. No regional wall motion abnormalities noted. Right Ventricle The right ventricle is normal size. The right ventricular systolic function is normal. Atria The left atrial size is normal. Right atrial size is normal. Mitral Valve There is mild mitral annular calcification. There is mild mitral regurgitation. Tricuspid Valve The tricuspid valve is normal in structure and function. No tricuspid regurgitation. Aortic Valve There is mild aortic sclerosis.;. Mild aortic regurgitation. Pulmonic Valve The pulmonic valve is not well visualized. Great Vessels The aortic root is normal size. Pericardium/Pleura Trivial pericardial effusion not hemodynamically significant. Interpretation Summary The left ventricle is normal in size. Left ventricular systolic function is normal. No regional wall motion abnormalities noted. Ejection Fraction = 60-65%. The right ventricular systolic function is normal. There is mild mitral annular calcification. There is mild mitral regurgitation. There is mild aortic sclerosis. Mild aortic regurgitation. Trivial pericardial effusion not hemodynamically significant Previous study is not available for comparison Shashi Rosales MD 06/23/2018 12:48 PM
[2018-06-23] MEDS: AZITHROMYCIN IVPB 500 MG/250 ML BAG IVPB SCH (13:02)
[2018-06-23] MEDS ORDERED: DEXTROSE 5%-WATER 100 ML IVPB ONE (13:12)
[2018-06-23] MEDS: CEFTRIAXONE 2 GM in DEXTROSE 5%-WATER 100 ML IVPB SCH (13:14)
--- NOTE | 2018-06-23 13:16 | CONS ---
DATE OF CONSULTATION: DATE OF DICTATION: 06/23/2018 HISTORY: The patient is a 73-year-old diabetic male who is evaluated for fever. He was recently in [place] for 2 months returning approximately 2 months ago. While in [place], he developed a cough. He reports for the past 2-3 weeks he has had a dry cough. It initially was productive of yellowish sputum; however, now it has become dry in nature. It was associated with generalized body ache. He denied any chest pain or shortness of breath. No hemoptysis. He denied any fever or chills. He was evaluated at [facility] where his temperature was 101.1. Chest x-ray was negative for acute infiltrate. At the present time, he is awake and alert. He continues to have a cough, which is dry. Denies any chest pain or dyspnea. The patient is unaware of any ill contacts. He is a former smoker. Stopped approximately 30 years ago. The patient states he has received influenza and pneumococcal vaccines. No known TB exposure. PAST MEDICAL HISTORY: Positive for diabetes mellitus, hypertension, coronary artery disease. ALLERGIES: No known allergies. MEDICATIONS: Glipizide, losartan, Glucophage, Januvia. SOCIAL HISTORY: Lives at home with his significant other. Former smoker. Stopped many years ago. Recent travel as noted. SYSTEMS REVIEW: Neurologic: No loss of consciousness, seizure activity, focal weakness. Cardiac: Negative chest pain or palpitations. Respiratory: As per HPI. Gastrointestinal: Negative vomiting or diarrhea. Genitourinary: Negative for urinary tract infection. LABORATORY DATA: White count 5.9 with 55 neutrophils, 1 band, 26 lymphocytes, hematocrit 34.1, platelet count 234, creatinine 0.8, lactic acid 3.9. Influenza swab negative. Urinalysis negative. Chest x-ray negative for acute infiltrate. PHYSICAL EXAMINATION: General: The patient is seated in bed in no acute distress. Vital Signs: Temperature 99, T-max 101, blood pressure 155/70, pulse 90 and regular, respirations 20 per minute. HEENT: Sclerae anicteric. Neck: Supple. No palpable nodes. Heart: S1, S2. Lungs: Clear. No rales, rhonchi, or wheezing. Abdomen: Soft. No tenderness elicited. No mass, rebound, or rigidity. Extremities: Negative for edema. IMPRESSION: A 73-year-old diabetic male admitted with a 2- to [id number] of dry cough recently returned from [place]. 1. Probable viral upper respiratory tract infection. 2. Rule out community-acquired versus atypical pneumonia. 3. History of diabetes mellitus. 4. Lactic acidosis. PLAN: Await culture results. Obtain sputum culture, urine Legionella, and pneumococcal antigens. Continue empiric Zithromax and ceftriaxone. If the patient continues to have to cough, would obtain CAT scan of the chest to rule out occult infiltrate. Case discussed with family present at the time of the examination. Thank you for the kind referral. ARELIS SANCHEZ M.D. [id number]
--- NOTE | 2018-06-23 13:41 | EKG ---
Test Reason : Blood Pressure : / mmHG Vent. Rate : 091 BPM Atrial Rate : 091 BPM P-R Int : 152 ms QRS Dur : 090 ms QT Int : 348 ms P-R-T Axes : 011 021 049 degrees QTc Int : 428 ms NORMAL SINUS RHYTHM NORMAL ECG WHEN COMPARED WITH ECG OF 22-JUN-2018 21:31, NO SIGNIFICANT CHANGE WAS FOUND Confirmed by PATY PATRICK MD ([id number]) on 06/23/2018 1:41:07 PM Referred By: Confirmed By:PATY PATRICK MD
--- NOTE | 2018-06-23 15:14 | PN ---
Physical Exam: SUBJECTIVE: Patient seen and examined at bedside this morning. He endorses cough , that is currently not productive. He denies subjective fevers, chills, shortness of breath, chest pain, palpitations, abdominal pain, nausea, vomiting. OBJECTIVE: Vital Signs Period Temp Pulse Resp BP Sys/Amador Pulse Ox Last 24 Hr 98.4 F-101 F 84-125 15-29 97-159/55-92 94-100 GENERAL: The patient is awake, alert, and fully oriented, in no acute distress. HEAD: Normocephalic, atraumatic EYES: PERRL, extraocular movements intact, sclera anicteric, conjunctiva clear. ENT: Oropharynx clear without exudates, moist mucous membranes. NECK: Supple without lymphadenopathy LUNGS: Breath sounds equal, faint rhonchi auscultated bilaterally. No wheezes, no crackles. No accessory muscle use. HEART: Regular rate and rhythm, S1, S2 without murmur, rub or gallop. ABDOMEN: Soft, nontender, nondistended. Normoactive bowel sounds, no guarding, no rebound tenderness. EXTREMITIES: 2+ pulses, warm, well-perfused, no lower extremity edema. NEUROLOGICAL: CN II-XII grossly intact. Sensation grossly intact b/l upper and lower extremities. Strength 5/5 b/l upper and lower extremities. PSYCH: Normal mood, normal affect upon my encounter. SKIN: Warm, dry. Laboratory Results - last 24 hr 06/22/18 06/22/18 06/22/18 18:50 18:50 19:58 WBC 8.7 RBC 4.58 Hgb 13.0 Hct 37.9 MCV 82.7 MCH 28.4 MCHC 34.4 RDW 14.0 Plt Count 266 MPV 7.8 Absolute Neuts (auto) 5.5 Neutrophils % 62.8 Neutrophils % (Manual) Band Neutrophils % Lymphocytes % 16.5 Lymphocytes % (Manual) Monocytes % 16.8 H Monocytes % (Manual) Eosinophils % 3.3 Eosinophils % (Manual) Basophils % 0.6 Basophils % (Manual) Myelocytes % (Man) Promyelocytes % (Man) Blast Cells % (Manual) Nucleated RBC % 0 Metamyelocytes Hypochromia Toxic Granulation Dohle Bodies Platelet Estimate Polychromasia Poikilocytosis Basophilic Stippling Anisocytosis Microcytosis Macrocytosis Spherocytes Sickle Cells Target Cells Tear Drop Cells Ovalocytes Stomatocytes Helmet Cells [place] Bodies [place] Cells Acanthocytes (Spur) Rouleaux Fragmented RBCs Schistocytes PT with INR INR VBG pH POC VBG pCO2 POC VBG pO2 Mixed VBG HCO3 Sodium Potassium Chloride Carbon Dioxide Anion Gap BUN Creatinine Creat Clearance w eGFR POC Glucometer Random Glucose Lactic Acid Calcium Phosphorus Magnesium Total Bilirubin AST ALT Alkaline Phosphatase Creatine Kinase Creatine Kinase Index CK-MB (CK-2) Troponin I Total Protein Albumin Triglycerides Cholesterol Total LDL Cholesterol HDL Cholesterol Urine Color Urine Appearance Urine pH Ur Specific [place] Urine Protein Urine Glucose (UA) Urine Ketones Urine Blood Urine Nitrite Urine Bilirubin Urine Urobilinogen Ur Leukocyte Esterase Influenza A (Rapid) Negative Influenza B (Rapid) Negative RSV Rapid Group A Strep Rapid Negative 06/22/18 06/22/18 06/22/18 19:58 19:58 19:58 WBC RBC Hgb Hct MCV MCH MCHC RDW Plt Count MPV Absolute Neuts (auto) Neutrophils % Neutrophils % (Manual) Band Neutrophils % Lymphocytes % Lymphocytes % (Manual) Monocytes % Monocytes % (Manual) Eosinophils % Eosinophils % (Manual) Basophils % Basophils % (Manual) Myelocytes % (Man) Promyelocytes % (Man) Blast Cells % (Manual) Nucleated RBC % Metamyelocytes Hypochromia Toxic Granulation Dohle Bodies Platelet Estimate Polychromasia Poikilocytosis Basophilic Stippling Anisocytosis Microcytosis Macrocytosis Spherocytes Sickle Cells Target Cells Tear Drop Cells Ovalocytes Stomatocytes Helmet Cells [place] Bodies [place] Rings [place] Cells Acanthocytes (Spur) Rouleaux Fragmented RBCs Schistocytes PT with INR INR VBG pH POC VBG pCO2 POC VBG pO2 Mixed VBG HCO3 Sodium 129 L Potassium 4.6 Chloride 95 L Carbon Dioxide 23 Anion Gap 11 BUN 10 Creatinine 0.7 Creat Clearance w eGFR > 60 POC Glucometer Random Glucose 179 H Lactic Acid 3.9 H* Calcium 8.9 Phosphorus Magnesium Total Bilirubin 0.3 AST 26 ALT 32 Alkaline Phosphatase 63 Creatine Kinase 392 H Creatine Kinase Index 0.9 CK-MB (CK-2) 3.8 H Troponin I 0.08 H Total Protein 7.6 Albumin 3.6 Triglycerides Cholesterol Total LDL Cholesterol HDL Cholesterol Urine Color Urine Appearance Urine pH Ur Specific [place] Urine Protein Urine Glucose (UA) Urine Ketones Urine Blood Urine Nitrite Urine Bilirubin Urine Urobilinogen Ur Leukocyte Esterase Influenza A (Rapid) Influenza B (Rapid) RSV Rapid Group A Strep Rapid 06/22/18 06/22/18 06/22/18 19:58 19:58 20:45 WBC RBC Hgb Hct MCV MCH MCHC RDW Plt Count MPV Absolute Neuts (auto) Neutrophils % Neutrophils % (Manual) Band Neutrophils % Lymphocytes % Lymphocytes % (Manual) Monocytes % Monocytes % (Manual) Eosinophils % Eosinophils % (Manual) Basophils % Basophils % (Manual) Myelocytes % (Man) Promyelocytes % (Man) Blast Cells % (Manual) Nucleated RBC % Metamyelocytes Hypochromia Toxic Granulation Dohle Bodies Platelet Estimate Polychromasia Poikilocytosis Basophilic Stippling Anisocytosis Microcytosis Macrocytosis Spherocytes Sickle Cells Target Cells Tear Drop Cells Ovalocytes Stomatocytes Helmet Cells [place] Bodies [place] Cells Acanthocytes (Spur) Rouleaux Fragmented RBCs Schistocytes PT with INR 13.10 H INR 1.11 H VBG pH 7.36 POC VBG pCO2 46.2 POC VBG pO2 37.1 Mixed VBG HCO3 25.4 H Sodium Potassium Chloride Carbon Dioxide Anion Gap BUN Creatinine Creat Clearance w eGFR POC Glucometer Random Glucose Lactic Acid Calcium Phosphorus Magnesium Total Bilirubin AST ALT Alkaline Phosphatase Creatine Kinase Creatine Kinase Index CK-MB (CK-2) Troponin I Total Protein Albumin Triglycerides Cholesterol Total LDL Cholesterol HDL Cholesterol Urine Color Yellow Urine Appearance Clear Urine pH 5.0 Ur Specific [place] 1.024 Urine Protein Negative Urine Glucose (UA) 1+ H Urine Ketones Negative Urine Blood Negative Urine Nitrite Negative Urine Bilirubin Negative Urine Urobilinogen Negative Ur Leukocyte Esterase Negative Influenza A (Rapid) Influenza B (Rapid) RSV Rapid Group A Strep Rapid 06/22/18 06/22/18 06/22/18 21:05 22:05 22:05 WBC RBC Hgb Hct MCV MCH MCHC RDW Plt Count MPV Absolute Neuts (auto) Neutrophils % Neutrophils % (Manual) Band Neutrophils % Lymphocytes % Lymphocytes % (Manual) Monocytes % Monocytes % (Manual) Eosinophils % Eosinophils % (Manual) Basophils % Basophils % (Manual) Myelocytes % (Man) Promyelocytes % (Man) Blast Cells % (Manual) Nucleated RBC % Metamyelocytes Hypochromia Toxic Granulation Dohle Bodies Platelet Estimate Polychromasia Poikilocytosis Basophilic Stippling Anisocytosis Microcytosis Macrocytosis Spherocytes Sickle Cells Target Cells Tear Drop Cells Ovalocytes Stomatocytes Helmet Cells [place] Bodies [place] Rings [place] Cells Acanthocytes (Spur) Rouleaux Fragmented RBCs Schistocytes PT with INR INR VBG pH POC VBG pCO2 POC VBG pO2 Mixed VBG HCO3 Sodium Potassium Chloride Carbon Dioxide Anion Gap BUN Creatinine Creat Clearance w eGFR POC Glucometer [phone] Random Glucose Lactic Acid 2.9 H* Calcium Phosphorus Magnesium Total Bilirubin AST ALT Alkaline Phosphatase Creatine Kinase 299 Creatine Kinase Index 0.9 CK-MB (CK-2) 2.9 Troponin I 0.10 H Total Protein Albumin Triglycerides Cholesterol Total LDL Cholesterol HDL Cholesterol Urine Color Urine Appearance Urine pH Ur Specific [place] Urine Protein Urine Glucose (UA) Urine Ketones Urine Blood Urine Nitrite Urine Bilirubin Urine Urobilinogen Ur Leukocyte Esterase Influenza A (Rapid) Influenza B (Rapid) RSV Rapid Group A Strep Rapid 06/23/18 06/23/18 06/23/18 05:15 05:15 05:15 WBC 5.9 RBC 4.15 Hgb 11.7 Hct 34.1 L MCV 82.2 MCH 28.2 MCHC 34.3 RDW 13.8 Plt Count 234 MPV 7.5 Absolute Neuts (auto) 3.0 Neutrophils % 51.4 Neutrophils % (Manual) 55.6 Band Neutrophils % 1.0 Lymphocytes % 26.4 D Lymphocytes % (Manual) 22.2 Monocytes % 20.1 H Monocytes % (Manual) 14 H Eosinophils % 1.6 Eosinophils % (Manual) 1.0 Basophils % 0.5 Basophils % (Manual) 0.0 Myelocytes % (Man) 0 Promyelocytes % (Man) 0 Blast Cells % (Manual) 0 Nucleated RBC % 0 Metamyelocytes 0 Hypochromia 0 Toxic Granulation 0 Dohle Bodies 0 Platelet Estimate Normal Polychromasia 0 Poikilocytosis 0 Basophilic Stippling 0 Anisocytosis 0 Microcytosis 0 Macrocytosis 0 Spherocytes 0 Sickle Cells 0 Target Cells 0 Tear Drop Cells 0 Ovalocytes 0 Stomatocytes 0 Helmet Cells 0 [place] Bodies 0 [place] 0 [place] Cells 0 Acanthocytes (Spur) 0 Rouleaux 0 Fragmented RBCs 0 Schistocytes 0 PT with INR INR VBG pH POC VBG pCO2 POC VBG pO2 Mixed VBG HCO3 Sodium 135 L Potassium 4.6 Chloride 101 Carbon Dioxide 29 Anion Gap 5 L BUN 8 Creatinine 0.8 Creat Clearance w eGFR > 60 POC Glucometer Random Glucose 253 H Lactic Acid Calcium 7.8 L Phosphorus 3.0 Magnesium 1.7 L Total Bilirubin AST ALT Alkaline Phosphatase Creatine Kinase Creatine Kinase Index CK-MB (CK-2) Troponin I 0.10 H Total Protein Albumin Triglycerides 105 Cholesterol 159 Total LDL Cholesterol 108 H HDL Cholesterol 32 L Urine Color Urine Appearance Urine pH Ur Specific [place] Urine Protein Urine Glucose (UA) Urine Ketones Urine Blood Urine Nitrite Urine Bilirubin Urine Urobilinogen Ur Leukocyte Esterase Influenza A (Rapid) Influenza B (Rapid) RSV Rapid Group A Strep Rapid 06/23/18 06/23/18 06/23/18 05:47 09:31 10:00 WBC RBC Hgb Hct MCV MCH MCHC RDW Plt Count MPV Absolute Neuts (auto) Neutrophils % Neutrophils % (Manual) Band Neutrophils % Lymphocytes % Lymphocytes % (Manual) Monocytes % Monocytes % (Manual) Eosinophils % Eosinophils % (Manual) Basophils % Basophils % (Manual) Myelocytes % (Man) Promyelocytes % (Man) Blast Cells % (Manual) Nucleated RBC % Metamyelocytes Hypochromia Toxic Granulation Dohle Bodies Platelet Estimate Polychromasia Poikilocytosis Basophilic Stippling Anisocytosis Microcytosis Macrocytosis Spherocytes Sickle Cells Target Cells Tear Drop Cells Ovalocytes Stomatocytes Helmet Cells [place] Bodies [place] Rings [place] Cells Acanthocytes (Spur) Rouleaux Fragmented RBCs Schistocytes PT with INR INR VBG pH POC VBG pCO2 POC VBG pO2 Mixed VBG HCO3 Sodium Potassium Chloride Carbon Dioxide Anion Gap BUN Creatinine Creat Clearance w eGFR POC Glucometer [phone] Random Glucose Lactic Acid 1.3 Calcium Phosphorus Magnesium Total Bilirubin AST ALT Alkaline Phosphatase Creatine Kinase Creatine Kinase Index CK-MB (CK-2) Troponin I Total Protein Albumin Triglycerides Cholesterol Total LDL Cholesterol HDL Cholesterol Urine Color Urine Appearance Urine pH Ur Specific [place] Urine Protein Urine Glucose (UA) Urine Ketones Urine Blood Urine Nitrite Urine Bilirubin Urine Urobilinogen Ur Leukocyte Esterase Influenza A (Rapid) Influenza B (Rapid) RSV Rapid Negative Group A Strep Rapid 06/23/18 06/23/18 06/23/18 11:00 11:09 11:30 WBC RBC Hgb Hct MCV MCH MCHC RDW Plt Count MPV Absolute Neuts (auto) Neutrophils % Neutrophils % (Manual) Band Neutrophils % Lymphocytes % Lymphocytes % (Manual) Monocytes % Monocytes % (Manual) Eosinophils % Eosinophils % (Manual) Basophils % Basophils % (Manual) Myelocytes % (Man) Promyelocytes % (Man) Blast Cells % (Manual) Nucleated RBC % Metamyelocytes Hypochromia Toxic Granulation Dohle Bodies Platelet Estimate Polychromasia Poikilocytosis Basophilic Stippling Anisocytosis Microcytosis Macrocytosis Spherocytes Sickle Cells Target Cells Tear Drop Cells Ovalocytes Stomatocytes Helmet Cells [place] Bodies [place] Cells Acanthocytes (Spur) Rouleaux Fragmented RBCs Schistocytes PT with INR INR VBG pH POC VBG pCO2 POC VBG pO2 Mixed VBG HCO3 Sodium Potassium Chloride Carbon Dioxide Anion Gap BUN Creatinine Creat Clearance w eGFR POC Glucometer [phone] Random Glucose Lactic Acid Calcium Phosphorus Magnesium Total Bilirubin AST ALT Alkaline Phosphatase Creatine Kinase 442 H Creatine Kinase Index 1.2 CK-MB (CK-2) 5.6 H Troponin I 0.11 H Total Protein Albumin Triglycerides Cholesterol Total LDL Cholesterol HDL Cholesterol Urine Color Straw Urine Appearance Clear Urine pH 6.0 Ur Specific [place] 1.009 L Urine Protein Negative Urine Glucose (UA) 1+ H Urine Ketones Negative Urine Blood Negative Urine Nitrite Negative Urine Bilirubin Negative Urine Urobilinogen Negative Ur Leukocyte Esterase Negative Influenza A (Rapid) Influenza B (Rapid) RSV Rapid Group A Strep Rapid Active Medications Generic Name Dose Route Start Last Admin Trade Name Freq PRN Reason Stop Dose Admin Aspirin 81 mg 06/23/18 10:00 06/23/18 09:27 Asa - PO 81 mg DAILY YANIRA Administration Chlorhexidine Gluconate 1 applic 06/23/18 22:00 Hibiclens For Decolonization - TP HS YANIRA Eucalyptus/Menthol/Phenol/Sorbitol 1 each 06/23/18 00:11 06/23/18 01:17 Cepastat Lozenge - MM 1 each Q4H PRN Administration SORE THROAT Guaifenesin 5 ml 06/23/18 00:10 06/23/18 11:24 Diabetic Tussin Dm - PO 5 ml Q4H PRN Administration COUGH Heparin Sodium (Porcine) 5,000 unit 06/23/18 06:00 06/23/18 13:03 Heparin - SQ 5,000 unit TID YANIRA Administration Sodium Chloride 1,000 mls @ 100 mls/hr 06/23/18 07:17 06/23/18 07:30 Normal Saline - IV 100 mls/hr ASDIR YANIRA Administration Azithromycin 500 mg in 250 mls @ 250 mls/hr 06/23/18 13:00 06/23/18 13:02 Zithromax 500mg Ivpb (Pre-Docked) IVPB 250 mls/hr DAILY YANIRA Administration Ceftriaxone Sodium 2 gm/ 100 mls @ 100 mls/hr 06/23/18 13:00 06/23/18 13:14 Dextrose IVPB 100 mls/hr DAILY YANIRA Administration Protocol Insulin Aspart 1 vial 06/23/18 07:00 06/23/18 11:23 Novolog Vial Sliding Scale - SQ 2 unit ACHS YANIRA Administration Protocol Losartan Potassium 100 mg 06/23/18 10:00 06/23/18 09:27 Cozaar - PO 100 mg DAILY YANIRA Administration Mupirocin 1 applic 06/23/18 10:00 06/23/18 09:26 Bactroban Ointment (For Decolonization) - NS 06/28/18 09:59 1 applic BID YANIRA Administration ASSESSMENT/PLAN: Patient is a 73 year old male with history of hypertension, diabetes mellitus, presents with cough and subjective fevers. He recently returned from [place]. Community acquired pneumonia -Chest Xray shows no acute pathology -Urine antigens for pneumonia, legionella -Follow blood cultures -Follow urine cultures -Follow Quantiferon -Ceftriaxone 2 grams IV daily -Azithromycin 500mg IV daily -Diabetic tussin 5mL Q4H PO PRN -ID consult (Dr. Salinas) appreciated. -Lactic acid 2.9 --> 1.3 NSTEMI -Troponins 0.08 -> 0.10 -> 0.10 -> 0.11 -> 0.12 -Trend troponins to peak -EKG shows normal sinus rhythm at 91 BPM without ischemic changes. -Likely secondary to demand ischemia -Aspirin 81mg PO daily -Telemetry monitoring Hypertension -Losartan 100mg PO daily Diabetes mellitus, non insulin dependent -Insulin sliding scale ACHS -Fingerstick blood glucose ACHS FEN -IV normal saline at 100mL/ hour -Follow CMP -Diabetic, sodium controlled diet Prophylaxis -Heparin 5000u subq TID Disposition -Transfer to telemtry floor. Visit type - Emergency Visit Emergency Visit: Yes ED Registration Date: 06/22/18 Care time: The patient presented to the Emergency Department on the above date and was hospitalized for further evaluation of their emergent condition. - New Patient This patient is new to me today: Yes Date on this admission: 06/23/18 - Critical Care Critical Care patient: Yes Total Critical Care Time (in minutes): 35 Critical Care Statement: The care of this patient involved high complexity decision making to prevent further life threatening deterioration of the patient 's condition and/or to evaluate & treat vital organ system(s) failure or risk of failure. - Discharge Referral Referred to [facility] No
[2018-06-23] MEDS ORDERED: CHLORHEXIDINE GLUCONATE 4% CLEANSER FOR DECOLONIZATION TP SCH (22:00)
[2018-06-24] MEDS ORDERED: amLODIPine BESYLATE 5 MG TABLET (FP) PO ONE (03:49)
[2018-06-24] MEDS: guaiFENesin/D-M SUGAR-FREE/ACLHOL-FREE 118 ML BOTTLE PO PRN ×2 (04:06→15:16)
[2018-06-24] MEDS ORDERED: ALBUTEROL SO4 2.5/IPRATROPIUM 0.5 INH SOL 3 ML VIAL.NEB. NEB ONE ×2 (04:11→21:16)
[2018-06-24 06:05] LABS: BASO % 0.6 % (0-2.0); HEMATOCRIT 36.6 % (35.4-49); HEMOGLOBIN 12.1 GM/dL (11.7-16.9); MCH 27.2 pg (25.7-33.7); MCHC 33.1 g/dl (32.0-35.9); MEAN CELL VOLUME 82.2 fl (80-96); MEAN PLT VOLUME 7.7 fl (7.5-11.1); MONO % 11.9 % (3.8-10.2); NEUT % 47.5 % (42.8-82.8); PLATELET COUNT 271 K/MM3 (134-434); RBC 4.45 M/mm3 (4.00-5.60); RDW 13.8 % (11.9-15.9); WHITE BLOOD COUNT 6.6 K/mm3 (4.0-10.0)
[2018-06-24] MEDS: INSULIN SLIDING SCALE (NOVOLOG) 1 VIAL SQ SCH ×4 (06:10→22:13)
[2018-06-24 06:27] LABS: ALBUMIN 3.2 g/dl (3.4-5.0); ALK PHOS 57 U/L (45-117); ANION GAP 6 MMOL/L (8-16); BILIRUBIN,TOTAL 0.2 mg/dL (0.2-1); BLOOD UREA NITROGEN 6 mg/dL (7-18); CALCIUM 8.3 mg/dL (8.5-10.1); CHLORIDE 97 mmol/L (98-107); CO2 30 mmol/L (21-32); CREATININE 0.6 mg/dL (0.55-1.3); GLUCOSE,RANDOM 180 mg/dL (74-106); MAGNESIUM 1.9 mg/dL (1.8-2.4); PHOSPHOROUS 2.9 mg/dL (2.5-4.9); POTASSIUM 4.1 mmol/L (3.5-5.1); SGOT/AST 24 U/L (15-37); SGPT/ALT 27 U/L (13-61); SODIUM 133 mmol/L (136-145); TOT PROT 6.9 g/dl (6.4-8.2)
[2018-06-24] MEDS: HEPARIN NA (PORCINE) 5,000 UNITS/ML 1ML VIAL SQ SCH ×3 (06:41→22:14)
[2018-06-24] MEDS ORDERED: DEXTROSE 5%-WATER 100 ML IVPB ONE ×2 (08:50)
[2018-06-24] MEDS: CEFTRIAXONE 2 GM in DEXTROSE 5%-WATER 100 ML IVPB SCH (09:06)
[2018-06-24] MEDS: ASPIRIN 81 MG CHEWABLE TABLETS PO SCH (09:07)
[2018-06-24] MEDS: LOSARTAN POTASSIUM 50 MG TABLET (FP) PO SCH (09:07)
[2018-06-24] MEDS: AZITHROMYCIN IVPB 500 MG/250 ML BAG IVPB SCH (09:07)
[2018-06-24] MEDS: MUPIROCIN 2% TOPICAL OINTMENT FOR DECOLONIZATION NS SCH ×2 (09:13→16:33)
--- NOTE | 2018-06-24 09:55 | PN ---
Physical Exam: SUBJECTIVE: Patient seen and examined at bedside this morning. He continues to endorse productive cough. He denies subjective fevers, chills, shortness of breath, chest pain, palpitations, abdominal pain, nausea, vomiting. OBJECTIVE: Vital Signs Period Temp Pulse Resp BP Sys/Amador Pulse Ox Last 24 Hr 98.2 F-98.6 F 71-96 15-27 130-187/70-90 97-100 GENERAL: The patient is awake, alert, and fully oriented, in no acute distress. HEAD: Normocephalic, atraumatic EYES: PERRL, extraocular movements intact, sclera anicteric, conjunctiva clear. ENT: Oropharynx clear without exudates, moist mucous membranes. NECK: Supple without lymphadenopathy LUNGS: Breath sounds equal, faint rhonchi and crackles auscultated bilaterally. No wheezes. No accessory muscle use. HEART: Regular rate and rhythm, S1, S2 without murmur, rub or gallop. ABDOMEN: Soft, nontender, nondistended. Normoactive bowel sounds, no guarding, no rebound tenderness. EXTREMITIES: 2+ pulses, warm, well-perfused, no lower extremity edema. NEUROLOGICAL: CN II-XII grossly intact. Sensation grossly intact b/l upper and lower extremities. Strength 5/5 b/l upper and lower extremities. PSYCH: Normal mood, normal affect upon my encounter. SKIN: Warm, dry. Laboratory Results - last 24 hr 06/23/18 06/23/18 06/23/18 05:15 09:31 10:00 WBC RBC Hgb Hct MCV MCH MCHC RDW Plt Count MPV Absolute Neuts (auto) Neutrophils % Neutrophils % (Manual) 55.6 Band Neutrophils % 1.0 Lymphocytes % Lymphocytes % (Manual) 22.2 Monocytes % Monocytes % (Manual) 14 H Eosinophils % Eosinophils % (Manual) 1.0 Basophils % Basophils % (Manual) 0.0 Myelocytes % (Man) 0 Promyelocytes % (Man) 0 Blast Cells % (Manual) 0 Nucleated RBC % Metamyelocytes 0 Hypochromia 0 Toxic Granulation 0 Dohle Bodies 0 Platelet Estimate Normal Polychromasia 0 Poikilocytosis 0 Basophilic Stippling 0 Anisocytosis 0 Microcytosis 0 Macrocytosis 0 Spherocytes 0 Sickle Cells 0 Target Cells 0 Tear Drop Cells 0 Ovalocytes 0 Stomatocytes 0 Helmet Cells 0 [place] Set Bodies 0 [place] Rings 0 [place] Cells 0 Acanthocytes (Spur) 0 Rouleaux 0 Fragmented RBCs 0 Schistocytes 0 Sodium Potassium Chloride Carbon Dioxide Anion Gap BUN Creatinine Creat Clearance w eGFR POC Glucometer Random Glucose Lactic Acid 1.3 Calcium Phosphorus Magnesium Total Bilirubin AST ALT Alkaline Phosphatase Creatine Kinase Creatine Kinase Index CK-MB (CK-2) Troponin I Total Protein Albumin Urine Color Urine Appearance Urine pH Ur Specific [place] Urine Protein Urine Glucose (UA) Urine Ketones Urine Blood Urine Nitrite Urine Bilirubin Urine Urobilinogen Ur Leukocyte Esterase RSV Rapid Negative 06/23/18 06/23/18 06/23/18 11:00 11:09 11:30 WBC RBC Hgb Hct MCV MCH MCHC RDW Plt Count MPV Absolute Neuts (auto) Neutrophils % Neutrophils % (Manual) Band Neutrophils % Lymphocytes % Lymphocytes % (Manual) Monocytes % Monocytes % (Manual) Eosinophils % Eosinophils % (Manual) Basophils % Basophils % (Manual) Myelocytes % (Man) Promyelocytes % (Man) Blast Cells % (Manual) Nucleated RBC % Metamyelocytes Hypochromia Toxic Granulation Dohle Bodies Platelet Estimate Polychromasia Poikilocytosis Basophilic Stippling Anisocytosis Microcytosis Macrocytosis Spherocytes Sickle Cells Target Cells Tear Drop Cells Ovalocytes Stomatocytes Helmet Cells [place] Set Bodies [place] Rings Favian Cells Acanthocytes (Spur) Rouleaux Fragmented RBCs Schistocytes Sodium Potassium Chloride Carbon Dioxide Anion Gap BUN Creatinine Creat Clearance w eGFR POC Glucometer [phone] Random Glucose Lactic Acid Calcium Phosphorus Magnesium Total Bilirubin AST ALT Alkaline Phosphatase Creatine Kinase 442 H Creatine Kinase Index 1.2 CK-MB (CK-2) 5.6 H Troponin I 0.11 H Total Protein Albumin Urine Color Straw Urine Appearance Clear Urine pH 6.0 Ur Specific [place] 1.009 L Urine Protein Negative Urine Glucose (UA) 1+ H Urine Ketones Negative Urine Blood Negative Urine Nitrite Negative Urine Bilirubin Negative Urine Urobilinogen Negative Ur Leukocyte Esterase Negative RSV Rapid 06/23/18 06/23/18 06/23/18 15:30 16:46 21:05 WBC RBC Hgb Hct MCV MCH MCHC RDW Plt Count MPV Absolute Neuts (auto) Neutrophils % Neutrophils % (Manual) Band Neutrophils % Lymphocytes % Lymphocytes % (Manual) Monocytes % Monocytes % (Manual) Eosinophils % Eosinophils % (Manual) Basophils % Basophils % (Manual) Myelocytes % (Man) Promyelocytes % (Man) Blast Cells % (Manual) Nucleated RBC % Metamyelocytes Hypochromia Toxic Granulation Dohle Bodies Platelet Estimate Polychromasia Poikilocytosis Basophilic Stippling Anisocytosis Microcytosis Macrocytosis Spherocytes Sickle Cells Target Cells Tear Drop Cells Ovalocytes Stomatocytes Helmet Cells [place] Set Bodies [place] Rings Favian Cells Acanthocytes (Spur) Rouleaux Fragmented RBCs Schistocytes Sodium Potassium Chloride Carbon Dioxide Anion Gap BUN Creatinine Creat Clearance w eGFR POC Glucometer [phone] Random Glucose Lactic Acid Calcium Phosphorus Magnesium Total Bilirubin AST ALT Alkaline Phosphatase Creatine Kinase 482 H Creatine Kinase Index 1.2 CK-MB (CK-2) 6.1 H Troponin I 0.12 H Total Protein Albumin Urine Color Urine Appearance Urine pH Ur Specific [place] Urine Protein Urine Glucose (UA) Urine Ketones Urine Blood Urine Nitrite Urine Bilirubin Urine Urobilinogen Ur Leukocyte Esterase RSV Rapid 06/23/18 06/24/18 06/24/18 23:15 05:15 05:15 WBC 6.6 RBC 4.45 Hgb 12.1 Hct 36.6 MCV 82.2 MCH 27.2 MCHC 33.1 RDW 13.8 Plt Count 271 MPV 7.7 Absolute Neuts (auto) 3.1 Neutrophils % 47.5 Neutrophils % (Manual) Band Neutrophils % Lymphocytes % 35.0 D Lymphocytes % (Manual) Monocytes % 11.9 H Monocytes % (Manual) Eosinophils % 5.0 H D Eosinophils % (Manual) Basophils % 0.6 Basophils % (Manual) Myelocytes % (Man) Promyelocytes % (Man) Blast Cells % (Manual) Nucleated RBC % 0 Metamyelocytes Hypochromia Toxic Granulation Dohle Bodies Platelet Estimate Polychromasia Poikilocytosis Basophilic Stippling Anisocytosis Microcytosis Macrocytosis Spherocytes Sickle Cells Target Cells Tear Drop Cells Ovalocytes Stomatocytes Helmet Cells [place] Set Bodies [place] Rings [place] Cells Acanthocytes (Spur) Rouleaux Fragmented RBCs Schistocytes Sodium 133 L Potassium 4.1 Chloride 97 L Carbon Dioxide 30 Anion Gap 6 L BUN 6 L Creatinine 0.6 Creat Clearance w eGFR > 60 POC Glucometer Random Glucose 180 H Lactic Acid Calcium 8.3 L Phosphorus 2.9 Magnesium 1.9 Total Bilirubin 0.2 AST 24 ALT 27 Alkaline Phosphatase 57 Creatine Kinase Creatine Kinase Index CK-MB (CK-2) Troponin I 0.14 H Total Protein 6.9 Albumin 3.2 L Urine Color Urine Appearance Urine pH Ur Specific [place] Urine Protein Urine Glucose (UA) Urine Ketones Urine Blood Urine Nitrite Urine Bilirubin Urine Urobilinogen Ur Leukocyte Esterase RSV Rapid 06/24/18 06/24/18 05:15 05:32 WBC RBC Hgb Hct MCV MCH MCHC RDW Plt Count MPV Absolute Neuts (auto) Neutrophils % Neutrophils % (Manual) Band Neutrophils % Lymphocytes % Lymphocytes % (Manual) Monocytes % Monocytes % (Manual) Eosinophils % Eosinophils % (Manual) Basophils % Basophils % (Manual) Myelocytes % (Man) Promyelocytes % (Man) Blast Cells % (Manual) Nucleated RBC % Metamyelocytes Hypochromia Toxic Granulation Dohle Bodies Platelet Estimate Polychromasia Poikilocytosis Basophilic Stippling Anisocytosis Microcytosis Macrocytosis Spherocytes Sickle Cells Target Cells Tear Drop Cells Ovalocytes Stomatocytes Helmet Cells [place] Set Bodies [place] Rings [place] Cells Acanthocytes (Spur) Rouleaux Fragmented RBCs Schistocytes Sodium Potassium Chloride Carbon Dioxide Anion Gap BUN Creatinine Creat Clearance w eGFR POC Glucometer [phone] Random Glucose Lactic Acid Calcium Phosphorus Magnesium Total Bilirubin AST ALT Alkaline Phosphatase Creatine Kinase Creatine Kinase Index CK-MB (CK-2) Troponin I 0.16 H Total Protein Albumin Urine Color Urine Appearance Urine pH Ur Specific [place] Urine Protein Urine Glucose (UA) Urine Ketones Urine Blood Urine Nitrite Urine Bilirubin Urine Urobilinogen Ur Leukocyte Esterase RSV Rapid Active Medications Generic Name Dose Route Start Last Admin Trade Name Freq PRN Reason Stop Dose Admin Aspirin 81 mg 06/23/18 10:00 06/24/18 09:07 Asa - PO 81 mg DAILY YANIRA Administration Chlorhexidine Gluconate 1 applic 06/23/18 22:00 06/23/18 23:32 Hibiclens For Decolonization - TP 1 applic HS YANIRA Administration Eucalyptus/Menthol/Phenol/Sorbitol 1 each 06/23/18 00:11 06/23/18 01:17 Cepastat Lozenge - MM 1 each Q4H PRN Administration SORE THROAT Guaifenesin 5 ml 06/23/18 00:10 06/24/18 04:06 Diabetic Tussin Dm - PO 5 ml Q4H PRN Administration COUGH Heparin Sodium (Porcine) 5,000 unit 06/23/18 06:00 06/24/18 06:41 Heparin - SQ 5,000 unit TID YANIRA Administration Azithromycin 500 mg in 250 mls @ 250 mls/hr 06/23/18 13:00 06/24/18 09:07 Zithromax 500mg Ivpb (Pre-Docked) IVPB 250 mls/hr DAILY YANIRA Administration Ceftriaxone Sodium 2 gm/ 100 mls @ 100 mls/hr 06/23/18 13:00 06/24/18 09:06 Dextrose IVPB 100 mls/hr DAILY YANIRA Administration Protocol Insulin Aspart 1 vial 06/23/18 07:00 06/24/18 06:10 Novolog Vial Sliding Scale - SQ Not Given ACHS YANIRA Protocol Losartan Potassium 100 mg 06/23/18 10:00 06/24/18 09:07 Cozaar - PO 100 mg DAILY YANIRA Administration Mupirocin 1 applic 06/23/18 10:00 06/24/18 09:13 Bactroban Ointment (For Decolonization) - NS 06/28/18 09:59 Not Given BID [facility] ASSESSMENT/PLAN: Patient is a 73 year old male with history of hypertension, diabetes mellitus, recently returned from [place], presents with cough and subjective fevers. Community acquired pneumonia -Chest Xray continues to show no acute pathology -Urine antigens for pneumonia, legionella -Bblood cultures negative at 24 hours incubation -Urine cultures negative for growth -Follow Quantiferon -Ceftriaxone 2 grams IV daily (day #2) -Azithromycin 500mg IV daily (day #2) -Diabetic tussin 5mL Q4H PO PRN -ID consult (Dr. Salinas) appreciated. -Lactic acid 2.9 --> 1.3 with IV fluid hydration. NSTEMI -Troponins 0.08 -> 0.10 -> 0.10 -> 0.11 -> 0.12 -> 0.14 -> 0.16 -Trend troponins to peak -EKG shows normal sinus rhythm at 91 BPM without ischemic changes. -Likely secondary to demand ischemia -Aspirin 81mg PO daily -Cardiology consult (Dr. Hooker) -Telemetry monitoring Hypertension -Losartan 100mg PO daily Diabetes mellitus, non insulin dependent -Insulin sliding scale ACHS -Fingerstick blood glucose ACHS FEN -No IV fluids indicated. -Follow CMP -Diabetic, sodium controlled diet Prophylaxis -Heparin 5000u subq TID Disposition -Transfer to telemtry floor. Visit type - Emergency Visit Emergency Visit: Yes ED Registration Date: 06/22/18 Care time: The patient presented to the Emergency Department on the above date and was hospitalized for further evaluation of their emergent condition. - New Patient This patient is new to me today: No - Critical Care Critical Care patient: Yes Total Critical Care Time (in minutes): 35 Critical Care Statement: The care of this patient involved high complexity decision making to prevent further life threatening deterioration of the patient 's condition and/or to evaluate & treat vital organ system(s) failure or risk of failure. - Discharge Referral Referred to [facility] Med P.C.: No
--- NOTE | 2018-06-24 11:40 | PN ---
Teaching Attending Note Name of Resident: Alison Anne ATTENDING PHYSICIAN STATEMENT I saw and evaluated the patient. I reviewed the resident's note and discussed the case with the resident. I agree with the resident's findings and plan as documented. SUBJECTIVE: Patient seen and examined in the ICU. Awake and alert. Less congested cough. No CP. No GI symptoms. No hemoptysis. Noted slight rise in troponin. Intake & Output 06/21/18 06/22/18 06/23/18 06/24/18 23:59 23:59 23:59 23:59 Intake Total 1000 2740 1250 Balance 1000 2740 1250 Weight 160 lb 157 lb 3.2 oz Last Vital Signs Temp Pulse Resp BP Pulse Ox 98.5 F 92 H 22 H 135/84 100 06/24/18 10:00 06/24/18 10:00 06/24/18 10:00 06/24/18 10:00 06/24/18 07:35 Active Medications Aspirin (Asa -) 81 mg PO DAILY YANIRA Last Admin: 06/24/18 09:07 Dose: 81 mg Chlorhexidine Gluconate (Hibiclens For Decolonization -) 1 applic TP HS YANIRA Last Admin: 06/23/18 23:32 Dose: 1 applic Eucalyptus/Menthol/Phenol/Sorbitol (Cepastat Lozenge -) 1 each MM Q4H PRN PRN Reason: SORE THROAT Last Admin: 06/23/18 01:17 Dose: 1 each Guaifenesin (Diabetic Tussin Dm -) 5 ml PO Q4H PRN PRN Reason: COUGH Last Admin: 06/24/18 04:06 Dose: 5 ml Heparin Sodium (Porcine) (Heparin -) 5,000 unit SQ TID YANIRA Last Admin: 06/24/18 06:41 Dose: 5,000 unit Azithromycin (Zithromax 500mg Ivpb (Pre-Docked)) 500 mg in 250 mls @ 250 mls/ hr IVPB DAILY YANIRA Last Admin: 06/24/18 09:07 Dose: 250 mls/hr Ceftriaxone Sodium 2 gm/ (Dextrose) 100 mls @ 100 mls/hr IVPB DAILY [facility]; Protocol Last Admin: 06/24/18 09:06 Dose: 100 mls/hr Insulin Aspart (Novolog Vial Sliding Scale -) 1 vial SQ ACHS YANIRA; Protocol Last Admin: 06/24/18 11:20 Dose: 10 unit Losartan Potassium (Cozaar -) 100 mg PO DAILY [facility] Last Admin: 06/24/18 09:07 Dose: 100 mg Mupirocin (Bactroban Ointment (For Decolonization) -) 1 applic NS BID [facility] Stop: 06/28/18 09:59 Last Admin: 06/24/18 09:13 Dose: Not Given Constitutional: Yes: No Distress, Calm Eyes: Yes: Conjunctiva Clear, EOM Intact, PERRL HENT: Yes: Atraumatic, Normocephalic Neck: Yes: Supple, Trachea Midline. No: Lymphadenopathy, Thyromegaly Cardiovascular: Yes: S1, S2. No: Murmur Respiratory: Yes: few scattered rhonchi, no wheeze Gastrointestinal: Yes: Normal Bowel Sounds, Soft, Distention Musculoskeletal: Yes: WNL Extremities: Yes: WNL Edema: No Peripheral Pulses WNL: Yes Neurological: Yes: Alert, Oriented Labs: Laboratory Results - last 24 hr 06/23/18 06/23/18 06/23/18 05:15 10:00 11:00 WBC RBC Hgb Hct MCV MCH MCHC RDW Plt Count MPV Absolute Neuts (auto) Neutrophils % Neutrophils % (Manual) 55.6 Band Neutrophils % 1.0 Lymphocytes % Lymphocytes % (Manual) 22.2 Monocytes % Monocytes % (Manual) 14 H Eosinophils % Eosinophils % (Manual) 1.0 Basophils % Basophils % (Manual) 0.0 Myelocytes % (Man) 0 Promyelocytes % (Man) 0 Blast Cells % (Manual) 0 Nucleated RBC % Metamyelocytes 0 Hypochromia 0 Toxic Granulation 0 Dohle Bodies 0 Platelet Estimate Normal Polychromasia 0 Poikilocytosis 0 Basophilic Stippling 0 Anisocytosis 0 Microcytosis 0 Macrocytosis 0 Spherocytes 0 Sickle Cells 0 Target Cells 0 Tear Drop Cells 0 Ovalocytes 0 Stomatocytes 0 Helmet Cells 0 [place] Bodies 0 [place] Rings 0 Favian Cells 0 Acanthocytes (Spur) 0 Rouleaux 0 Fragmented RBCs 0 Schistocytes 0 Sodium Potassium Chloride Carbon Dioxide Anion Gap BUN Creatinine Creat Clearance w eGFR POC Glucometer Random Glucose Calcium Phosphorus Magnesium Total Bilirubin AST ALT Alkaline Phosphatase Creatine Kinase Creatine Kinase Index CK-MB (CK-2) Troponin I Total Protein Albumin Urine Color Straw Urine Appearance Clear Urine pH 6.0 Ur Specific [place] 1.009 L Urine Protein Negative Urine Glucose (UA) 1+ H Urine Ketones Negative Urine Blood Negative Urine Nitrite Negative Urine Bilirubin Negative Urine Urobilinogen Negative Ur Leukocyte Esterase Negative RSV Rapid Negative 06/23/18 06/23/18 06/23/18 11:09 11:30 15:30 WBC RBC Hgb Hct MCV MCH MCHC RDW Plt Count MPV Absolute Neuts (auto) Neutrophils % Neutrophils % (Manual) Band Neutrophils % Lymphocytes % Lymphocytes % (Manual) Monocytes % Monocytes % (Manual) Eosinophils % Eosinophils % (Manual) Basophils % Basophils % (Manual) Myelocytes % (Man) Promyelocytes % (Man) Blast Cells % (Manual) Nucleated RBC % Metamyelocytes Hypochromia Toxic Granulation Dohle Bodies Platelet Estimate Polychromasia Poikilocytosis Basophilic Stippling Anisocytosis Microcytosis Macrocytosis Spherocytes Sickle Cells Target Cells Tear Drop Cells Ovalocytes Stomatocytes Helmet Cells [place] Bodies [place] Rings Favian Cells Acanthocytes (Spur) Rouleaux Fragmented RBCs Schistocytes Sodium Potassium Chloride Carbon Dioxide Anion Gap BUN Creatinine Creat Clearance w eGFR POC Glucometer [phone] Random Glucose Calcium Phosphorus Magnesium Total Bilirubin AST ALT Alkaline Phosphatase Creatine Kinase 442 H 482 H Creatine Kinase Index 1.2 1.2 CK-MB (CK-2) 5.6 H 6.1 H Troponin I 0.11 H 0.12 H Total Protein Albumin Urine Color Urine Appearance Urine pH Ur Specific [place] Urine Protein Urine Glucose (UA) Urine Ketones Urine Blood Urine Nitrite Urine Bilirubin Urine Urobilinogen Ur Leukocyte Esterase RSV Rapid 06/23/18 06/23/18 06/23/18 16:46 21:05 23:15 WBC RBC Hgb Hct MCV MCH MCHC RDW Plt Count MPV Absolute Neuts (auto) Neutrophils % Neutrophils % (Manual) Band Neutrophils % Lymphocytes % Lymphocytes % (Manual) Monocytes % Monocytes % (Manual) Eosinophils % Eosinophils % (Manual) Basophils % Basophils % (Manual) Myelocytes % (Man) Promyelocytes % (Man) Blast Cells % (Manual) Nucleated RBC % Metamyelocytes Hypochromia Toxic Granulation Dohle Bodies Platelet Estimate Polychromasia Poikilocytosis Basophilic Stippling Anisocytosis Microcytosis Macrocytosis Spherocytes Sickle Cells Target Cells Tear Drop Cells Ovalocytes Stomatocytes Helmet Cells [place] Bodies [place] Rings Favian Cells Acanthocytes (Spur) Rouleaux Fragmented RBCs Schistocytes Sodium Potassium Chloride Carbon Dioxide Anion Gap BUN Creatinine Creat Clearance w eGFR POC Glucometer [phone] Random Glucose Calcium Phosphorus Magnesium Total Bilirubin AST ALT Alkaline Phosphatase Creatine Kinase Creatine Kinase Index CK-MB (CK-2) Troponin I 0.14 H Total Protein Albumin Urine Color Urine Appearance Urine pH Ur Specific [place] Urine Protein Urine Glucose (UA) Urine Ketones Urine Blood Urine Nitrite Urine Bilirubin Urine Urobilinogen Ur Leukocyte Esterase RSV Rapid 06/24/18 06/24/18 06/24/18 05:15 05:15 05:15 WBC 6.6 RBC 4.45 Hgb 12.1 Hct 36.6 MCV 82.2 MCH 27.2 MCHC 33.1 RDW 13.8 Plt Count 271 MPV 7.7 Absolute Neuts (auto) 3.1 Neutrophils % 47.5 Neutrophils % (Manual) Band Neutrophils % Lymphocytes % 35.0 D Lymphocytes % (Manual) Monocytes % 11.9 H Monocytes % (Manual) Eosinophils % 5.0 H D Eosinophils % (Manual) Basophils % 0.6 Basophils % (Manual) Myelocytes % (Man) Promyelocytes % (Man) Blast Cells % (Manual) Nucleated RBC % 0 Metamyelocytes Hypochromia Toxic Granulation Dohle Bodies Platelet Estimate Polychromasia Poikilocytosis Basophilic Stippling Anisocytosis Microcytosis Macrocytosis Spherocytes Sickle Cells Target Cells Tear Drop Cells Ovalocytes Stomatocytes Helmet Cells [place] Bodies [place] Rings [place] Cells Acanthocytes (Spur) Rouleaux Fragmented RBCs Schistocytes Sodium 133 L Potassium 4.1 Chloride 97 L Carbon Dioxide 30 Anion Gap 6 L BUN 6 L Creatinine 0.6 Creat Clearance w eGFR > 60 POC Glucometer Random Glucose 180 H Calcium 8.3 L Phosphorus 2.9 Magnesium 1.9 Total Bilirubin 0.2 AST 24 ALT 27 Alkaline Phosphatase 57 Creatine Kinase Creatine Kinase Index CK-MB (CK-2) Troponin I 0.16 H Total Protein 6.9 Albumin 3.2 L Urine Color Urine Appearance Urine pH Ur Specific [place] Urine Protein Urine Glucose (UA) Urine Ketones Urine Blood Urine Nitrite Urine Bilirubin Urine Urobilinogen Ur Leukocyte Esterase RSV Rapid 06/24/18 05:32 WBC RBC Hgb Hct MCV MCH MCHC RDW Plt Count MPV Absolute Neuts (auto) Neutrophils % Neutrophils % (Manual) Band Neutrophils % Lymphocytes % Lymphocytes % (Manual) Monocytes % Monocytes % (Manual) Eosinophils % Eosinophils % (Manual) Basophils % Basophils % (Manual) Myelocytes % (Man) Promyelocytes % (Man) Blast Cells % (Manual) Nucleated RBC % Metamyelocytes Hypochromia Toxic Granulation Dohle Bodies Platelet Estimate Polychromasia Poikilocytosis Basophilic Stippling Anisocytosis Microcytosis Macrocytosis Spherocytes Sickle Cells Target Cells Tear Drop Cells Ovalocytes Stomatocytes Helmet Cells [place] Bodies [place] Rings [place] Cells Acanthocytes (Spur) Rouleaux Fragmented RBCs Schistocytes Sodium Potassium Chloride Carbon Dioxide Anion Gap BUN Creatinine Creat Clearance w eGFR POC Glucometer [phone] Random Glucose Calcium Phosphorus Magnesium Total Bilirubin AST ALT Alkaline Phosphatase Creatine Kinase Creatine Kinase Index CK-MB (CK-2) Troponin I Total Protein Albumin Urine Color Urine Appearance Urine pH Ur Specific [place] Urine Protein Urine Glucose (UA) Urine Ketones Urine Blood Urine Nitrite Urine Bilirubin Urine Urobilinogen Ur Leukocyte Esterase RSV Rapid Assessment/Plan Spesis due to a suspected Respiratory infection (?) Viral Illness DM HTN Resolving hypotension Recent travel history (+) Troponin likely due to demand ischemia Lactic acidosis ABX Cardiology evaluation for increasing troponin ABX per ID O2 as needed IVF Follow cultures ASA VTE prophylaxis Cardiac Telemetry monitoring Dr Montesinos Critical care time spent in reviewing chart, evaluating patient and formulating plan - 36 minutes.
--- NOTE | 2018-06-24 11:54 | PN ---
Progress Note (short form) - Note Progress Note: SUBJECTIVE Patient seen and examined at the bedside. No acute complaints. Denies chest pain , shortness of breath, or fever. Continues to have cough and reports that it is non-productive. Hypertensive overnight with periodic apneic episodes while sleeping. HOD#3. OBJECTIVE Vital Signs Temperature 98.5 F 06/24/18 10:00 Pulse Rate 92 H 06/24/18 10:00 Respiratory Rate 22 H 06/24/18 10:00 Blood Pressure 135/84 06/24/18 10:00 O2 Sat by Pulse Oximetry (%) 100 06/24/18 07:35 General: Awake, alert, and fully oriented, in no acute distress Head: No signs of trauma Eyes: EOMI, sclera anicteric ENT: Moist mucus membranes Neck: Normal ROM, supple Lungs: Scattered rhonchi Cardio: Regular rhythm, S1 and S2 present Abdomen: Soft, nontender Extremities: Normal range of motion, Distal pulses present SKIN: Warm, Dry, normal turgor Neurologic: Cranial nerves II through XII grossly intact. Normal speech ASSESSMENT 73 yr old man with DM, HTN presents with productive cough and fever returning from international travel found to be tachycardic with elevated troponins, hyponatremia, and labile blood pressure. qSOFA=2 (for RR and BP). HOD#3 PLAN CARDIO Elevated troponin, likely due to demand ischemia -Tpn=0.16, slight rise; no chest pain -no longer need to trend -EKG on 06/22/18 with sinus tachycardia but no ST depressions/elevations -Defer beta-blockers at this time -continue home ASA 81mg -ECHO without acute findings -plan to consult Cardiology Chronic Hypertension -on home losartan PULM CXR without acute pathology R/o legionella Coverage with Ceftriaxone and Azithromycin Periodic apneic episodes while sleeping, suspicious for CORTEZ -Sleep study ordered RENAL Hyponatremia, unclear etiology -Has received IV Fluids -Gz=290 (from 135) ENDO Chronic DM -BGM, NISS ID qSOFA=2, likely due to community-acquired pneumonia -lactate 1.3 (from 2.9) -ID following -Coverage with Ceftriaxone and Azithromycin -Pending blood and urine cultures -Blood parasites negative FEN Monitor electrolytes -Replete as needed Advanced to diet 06/23/18 PPX DVT: Heparin GI: not needed at this time Disposition: Patient is safe for transfer to telemetry
[2018-06-24 11:56] VITALS: BMI 26.9
[2018-06-24] MEDS ORDERED: PT OWN MED DRAWER 7, Y5N ONE (12:29)
--- NOTE | 2018-06-24 16:07 | PN ---
Progress Note (short form) - Note Progress Note: still coughing but less nonproductive fevers resolved Vital Signs Period Temp Pulse Resp BP Sys/Amdaor Pulse Ox Last 24 Hr 98.2 F-99.5 F 71-96 15 130-187/73-90 97-100 cor-rrr lungs clear abd firm, protubreant, nt ext no edema CBC, BMP 06/24/18 05:15 06/24/18 05:15 Microbiology 06/22/18 20:45 Urine - Urine Clean Catch Urine Culture - Final NO GROWTH OBTAINED 06/22/18 10:00 Sputum - Expectorated Gram Stain - Final 06/22/18 10:00 Sputum - Expectorated Sputum Culture - Preliminary Pending Organism 06/22/18 19:02 Throat Throat Culture - Final NO BETA HEMOLYTIC STREPTOCOCCI ISOLATED 06/22/18 19:58 Blood - Peripheral Venous Blood Culture - Preliminary NO GROWTH OBTAINED AFTER 24 HOURS, INCUBATION TO CONTINUE FOR 4 DAYS. 06/22/18 19:58 Blood - Peripheral Venous Blood Culture - Preliminary NO GROWTH OBTAINED AFTER 24 HOURS, INCUBATION TO CONTINUE FOR 4 DAYS. 06/23/18 11:00 Urine For Antigen Detection Legionella Antigen - Final 06/23/18 11:00 Urine For Antigen Detection Streptococcus pneumoniae Antigen (M - Final 06/22/18 19:58 Blood - Peripheral Venous Blood Parasites Smear - Final troponin .16 cxray clear Active Medications Aspirin (Asa -) 81 mg PO DAILY [facility] Last Admin: 06/24/18 09:07 Dose: 81 mg Chlorhexidine Gluconate (Hibiclens For Decolonization -) 1 applic TP HS [facility] Last Admin: 06/23/18 23:32 Dose: 1 applic Eucalyptus/Menthol/Phenol/Sorbitol (Cepastat Lozenge -) 1 each MM Q4H PRN PRN Reason: SORE THROAT Last Admin: 06/23/18 01:17 Dose: 1 each Guaifenesin (Diabetic Tussin Dm -) 5 ml PO Q4H PRN PRN Reason: COUGH Last Admin: 06/24/18 15:16 Dose: 5 ml Heparin Sodium (Porcine) (Heparin -) 5,000 unit SQ TID [facility] Last Admin: 06/24/18 13:52 Dose: 5,000 unit Azithromycin (Zithromax 500mg Ivpb (Pre-Docked)) 500 mg in 250 mls @ 250 mls/ hr IVPB DAILY [facility] Last Admin: 06/24/18 09:07 Dose: 250 mls/hr Ceftriaxone Sodium 2 gm/ (Dextrose) 100 mls @ 100 mls/hr IVPB DAILY [facility]; Protocol Last Admin: 06/24/18 09:06 Dose: 100 mls/hr Insulin Aspart (Novolog Vial Sliding Scale -) 1 vial SQ ACHS [facility]; Protocol Last Admin: 06/24/18 11:20 Dose: 10 unit Losartan Potassium (Cozaar -) 100 mg PO DAILY [facility] Last Admin: 06/24/18 09:07 Dose: 100 mg Mupirocin (Bactroban Ointment (For Decolonization) -) 1 applic NS BID [facility] Stop: 06/28/18 09:59 Last Admin: 06/24/18 09:13 Dose: Not Given a/p fever cough improved- ?bronchitis, continue antibiotics rocephin/zithromax for now, f/u cultures positive troponins- f/u with cardiology
--- NOTE | 2018-06-24 17:12 | CON.CARD ---
Consult Consult Specialty:: cardiology Reason for Consultation:: elevated TNI - History of Present Illness Chief Complaint: Pt is A&Ox3; OOB in chair. No chest pain, dizziness, or dyspnea. Still with frequent cough. History of Present Illness: Patient is a 73-year-old male (b. [place]) with history of Laughlin's palsy, diabetes , HTN, brought in by family for complaint of a cough 3 weeks. Patient was away visiting in [facility] when he developed this cough, initially was productive of yellow sputum, however now nonproductive. States he's been having body ache, felt hot and cold, but did not take his temperature. Yesterday, had several doses of Motrin. Denies dysuria, nausea, vomiting, chest pain. - History Source History Provided By: Patient, Medical Record Limitations to Obtaining History: No Limitations - Past Medical History Cardio/Vascular: Yes: HTN Pulmonary: Yes: Sleep Apnea (? hx ) - Alcohol/Substance Use Hx Alcohol Use: No - Smoking History Smoking history: Former smoker Have you smoked in the past 12 months: No Home Medications - Allergies Allergies/Adverse Reactions: Allergies Allergy/AdvReac Type Severity Reaction Status Date / Time No Known Allergies Allergy Verified 06/22/18 18:48 - Home Medications Home Medications: Ambulatory Orders Glipizide 5 mg PO DAILY 06/22/18 Losartan Potassium 100 mg PO DAILY 06/22/18 Metformin HCl [Glucophage] 500 mg PO BID 06/22/18 Sitagliptin Phosphate [Januvia] 50 mg PO DAILY 06/22/18 Family Disease History - Family Disease History Family History: Denies Review of Systems - Review of Systems Constitutional: reports: No Symptoms Eyes: reports: No Symptoms HENT: reports: No Symptoms Neck: reports: No Symptoms Cardiovascular: reports: No Symptoms Respiratory: reports: Cough Gastrointestinal: reports: No Symptoms Genitourinary: reports: No Symptoms Breasts: reports: No Symptoms Reported Musculoskeletal: reports: No Symptoms Integumentary: reports: No Symptoms Neurological: reports: No Symptoms Endocrine: reports: No Symptoms Hematology/Lymphatic: reports: No Symptoms Psychiatric: reports: No Symptoms - Risk Factors Known Risk Factors: Yes: Age, Gender, Hypercholesterolemia, Hypertension Vital Signs: Vital Signs Temperature 99.5 F 06/24/18 14:00 Pulse Rate 88 06/24/18 16:00 Respiratory Rate 18 06/24/18 16:00 Blood Pressure 139/83 06/24/18 16:00 O2 Sat by Pulse Oximetry (%) 100 06/24/18 07:35 Constitutional: Yes: Calm Eyes: Yes: WNL HENT: Yes: WNL Neck: Yes: WNL Respiratory: Yes: Regular, Cough Gastrointestinal: Yes: Soft Renal/: No: Anuria Cardiovascular: Yes: Regular Rate and Rhythm JVD: No Carotid Bruit: No PMI: Non-Displaced Heart Sounds: Yes: S1, S2, S4 Murmur: Yes: Diastolic Murmur, Grade 1 Musculoskeletal: Yes: WNL Extremities: Yes: WNL Edema: No Peripheral Pulses WNL: Yes Integumentary: Yes: WNL Neurological: Yes: WNL Psychiatric: Yes: WNL - Other Data Labs, Other Data: CBC, BMP 06/24/18 05:15 06/24/18 05:15 INR, PTT INR 1.11 (0.83-1.09) H 06/22/18 19:58 Troponin, BNP 06/23/18 06/24/18 23:15 05:15 Troponin I 0.14 H 0.16 H Troponin, BNP 06/23/18 06/24/18 23:15 05:15 Troponin I 0.14 H 0.16 H Abnormal Lab Results 06/23/18 06/24/18 06/24/18 23:15 05:15 05:15 Monocytes % 11.9 H Eosinophils % 5.0 H D Sodium 133 L Chloride 97 L Anion Gap 6 L BUN 6 L Random Glucose 180 H Calcium 8.3 L Troponin I 0.14 H Albumin 3.2 L 06/24/18 06/24/18 05:15 18:00 Monocytes % Eosinophils % Sodium Chloride Anion Gap BUN Random Glucose Calcium Troponin I 0.16 H 0.14 H Albumin Echo: Report Reviewed Ejection Fraction %: LVEF > or = 40 % Imaging - Results Chest X-ray: Image Reviewed EKG: Image Reviewed Problem List - Problems (1) Cough Assessment/Plan: On antibiotics. Code(s): R05 - COUGH (2) Elevated troponin I level Assessment/Plan: EKG: sinus tachycardia; otherwise normal EKG. Multiple factors, including sepsis, sleep apnea, HTN, and CHF are contributors to demand ischemia. Denies personal or family hx of heart disease; nonsmoker. HTN, DM. Pt states he had a negative stress test at [facility] two years ago "after they told me I needed a cardiac cath because I had had a heart attack". He will require coronary artery evaluation once stable, but is presently reluctant to consider this "until my cough is gone and I go home". 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 Code(s): R74.8 - ABNORMAL LEVELS OF OTHER SERUM ENZYMES (3) HTN (hypertension) Assessment/Plan: On losartan 100 mg daily. ECHO report: normal LVEF; normal wall thicknesses;mild AR and MR. Code(s): I10 - ESSENTIAL (PRIMARY) HYPERTENSION (4) T2DM (type 2 diabetes mellitus) Code(s): E11.9 - TYPE 2 DIABETES MELLITUS WITHOUT COMPLICATIONS (5) Sleep apnea Assessment/Plan: f/u workup Code(s): G47.30 - SLEEP APNEA, UNSPECIFIED Assessment/Plan CCU time spent: 35 minutes.
[2018-06-24 19:40] LABS: N-TERMINAL BNP 121.9 pg/ml (5-450)
--- NOTE | 2018-06-24 19:47 | PN ---
Teaching Attending Note Name of Resident: Horace Pierre ATTENDING PHYSICIAN STATEMENT I saw and evaluated the patient. I reviewed the resident's note and discussed the case with the resident. I agree with the resident's findings and plan as documented. SUBJECTIVE: Feels better, less SOB/cough. No fever/chills OBJECTIVE: Afebrile, Hemodynamically Stable. Last Vital Signs Temp Pulse Resp BP Pulse Ox 99.5 F 97 H 18 172/84 H 100 06/24/18 14:00 06/24/18 18:00 06/24/18 18:00 06/24/18 18:00 06/24/18 07:35 HEENT - Atraumatic, Normocephalic Heart - S1, S2, RRR Lungs - clear to auscultation Abdomen - Soft, non-tender. Bowel Sound normal. Extremities - no calf tenderness Laboratory Results - last 24 hr 06/23/18 06/23/18 06/24/18 21:05 23:15 05:15 WBC 6.6 RBC 4.45 Hgb 12.1 Hct 36.6 MCV 82.2 MCH 27.2 MCHC 33.1 RDW 13.8 Plt Count 271 MPV 7.7 Absolute Neuts (auto) 3.1 Neutrophils % 47.5 Lymphocytes % 35.0 D Monocytes % 11.9 H Eosinophils % 5.0 H D Basophils % 0.6 Nucleated RBC % 0 Sodium Potassium Chloride Carbon Dioxide Anion Gap BUN Creatinine Creat Clearance w eGFR POC Glucometer [phone] Random Glucose Calcium Phosphorus Magnesium Total Bilirubin AST ALT Alkaline Phosphatase Troponin I 0.14 H B-Natriuretic Peptide Total Protein Albumin 06/24/18 06/24/18 06/24/18 05:15 05:15 05:32 WBC RBC Hgb Hct MCV MCH MCHC RDW Plt Count MPV Absolute Neuts (auto) Neutrophils % Lymphocytes % Monocytes % Eosinophils % Basophils % Nucleated RBC % Sodium 133 L Potassium 4.1 Chloride 97 L Carbon Dioxide 30 Anion Gap 6 L BUN 6 L Creatinine 0.6 Creat Clearance w eGFR > 60 POC Glucometer [phone] Random Glucose 180 H Calcium 8.3 L Phosphorus 2.9 Magnesium 1.9 Total Bilirubin 0.2 AST 24 ALT 27 Alkaline Phosphatase 57 Troponin I 0.16 H B-Natriuretic Peptide Total Protein 6.9 Albumin 3.2 L 06/24/18 06/24/18 06/24/18 11:19 16:20 18:00 WBC RBC Hgb Hct MCV MCH MCHC RDW Plt Count MPV Absolute Neuts (auto) Neutrophils % Lymphocytes % Monocytes % Eosinophils % Basophils % Nucleated RBC % Sodium Potassium Chloride Carbon Dioxide Anion Gap BUN Creatinine Creat Clearance w eGFR POC Glucometer [phone] Random Glucose Calcium Phosphorus Magnesium Total Bilirubin AST ALT Alkaline Phosphatase Troponin I 0.14 H B-Natriuretic Peptide 121.9 Total Protein Albumin Current Medications Generic Name Dose Route Start Last Admin Trade Name Freq PRN Reason Stop Dose Admin Aspirin 81 mg 06/23/18 10:00 06/24/18 09:07 Asa - PO 81 mg DAILY [facility] Administration Chlorhexidine Gluconate 1 applic 06/23/18 22:00 06/23/18 23:32 Hibiclens For Decolonization - TP 1 applic HS [facility] Administration Eucalyptus/Menthol/Phenol/Sorbitol 1 each 06/23/18 00:11 06/23/18 01:17 Cepastat Lozenge - MM 1 each Q4H PRN Administration SORE THROAT Guaifenesin 5 ml 06/23/18 00:10 06/24/18 15:16 Diabetic Tussin Dm - PO 5 ml Q4H PRN Administration COUGH Heparin Sodium (Porcine) 5,000 unit 06/23/18 06:00 06/24/18 13:52 Heparin - SQ 5,000 unit TID [facility] Administration Azithromycin 500 mg in 250 mls @ 250 mls/hr 06/23/18 13:00 06/24/18 09:07 Zithromax 500mg Ivpb (Pre-Docked) IVPB 250 mls/hr DAILY [facility] Administration Ceftriaxone Sodium 2 gm/ 100 mls @ 100 mls/hr 06/23/18 13:00 06/24/18 09:06 Dextrose IVPB 100 mls/hr DAILY [facility] Administration Protocol Insulin Aspart 1 vial 06/23/18 07:00 06/24/18 16:27 Novolog Vial Sliding Scale - SQ 8 unit ACHS [facility] Administration Protocol Losartan Potassium 100 mg 06/23/18 10:00 06/24/18 09:07 Cozaar - PO 100 mg DAILY [facility] Administration Mupirocin 1 applic 06/23/18 10:00 06/24/18 16:33 Bactroban Ointment (For Decolonization) - NS 06/28/18 09:59 1 applic BID [facility] Administration Home Medications Medication Instructions Recorded Glipizide 5 mg PO DAILY 06/22/18 Losartan Potassium 100 mg PO DAILY 06/22/18 Metformin HCl [Glucophage] 500 mg PO BID 06/22/18 Sitagliptin Phosphate [Januvia] 50 mg PO DAILY 06/22/18 ASSESSMENT AND PLAN: 73 year old male with HTN, CAD, DM 2, HLD, presented with increasing SOB and productive cough ongoing for several weeks while he was in [place], without chest pain/hemoptysis. In ED, he was found to be septic with bilateral wheeze, Fever, lactic acidosis, tachycardia, hypotension. 1. Sepsis secondary to Acute Bronchitis - sepsis resolved. Started on Ceftriaxone/Azithro - continue as per ID No consolidation on chest imaging. Currently afebrile, hemodynamically stable. Legionella and Strep Ag neg. Blood Cx neg so far. Sputum Cx pending. 2. Troponin egression, likely sec to demand ischemia in setting of underlying CAD Denies chest pain TropI max 0.16, now down-trending. ECG - no acute changes Echo - trivial pericardial effusion Aspirin Cardiology consulted 3. DM 2 - Maintain on sliding scale insulin. Sitagliptin, Metformin, Glipizide held. 4. HTN - Home anti-hypertensives held (Losartan) 5. HLD - continue Statin DVT Px - Heparin SQ
[2018-06-24] MEDS ORDERED: MENTHOL/PHENOL 1 EACH UD MM PRN (21:16)
[2018-06-25] MEDS: guaiFENesin/D-M SUGAR-FREE/ACLHOL-FREE 118 ML BOTTLE PO PRN ×3 (01:20→22:17)
[2018-06-25] MEDS: HEPARIN NA (PORCINE) 5,000 UNITS/ML 1ML VIAL SQ SCH ×3 (05:53→22:00)
[2018-06-25 06:01] LABS: BASO % 0.7 % (0-2.0); EOS % 8.1 % (0-4.5); HEMATOCRIT 36.7 % (35.4-49); HEMOGLOBIN 12.3 GM/dL (11.7-16.9); LYMPH % 38.7 % (8-40); MCH 27.4 pg (25.7-33.7); MCHC 33.5 g/dl (32.0-35.9); MEAN CELL VOLUME 81.8 fl (80-96); MEAN PLT VOLUME 7.3 fl (7.5-11.1); MONO % 10.5 % (3.8-10.2); PLATELET COUNT 280 K/MM3 (134-434); RBC 4.48 M/mm3 (4.00-5.60); WHITE BLOOD COUNT 5.6 K/mm3 (4.0-10.0)
[2018-06-25 06:30] LABS: ALBUMIN 3.2 g/dl (3.4-5.0); ALK PHOS 59 U/L (45-117); ANION GAP 8 MMOL/L (8-16); BILIRUBIN,TOTAL 0.3 mg/dL (0.2-1); BLOOD UREA NITROGEN 8 mg/dL (7-18); CALCIUM 8.9 mg/dL (8.5-10.1); CHLORIDE 96 mmol/L (98-107); CO2 30 mmol/L (21-32); CREATININE 0.7 mg/dL (0.55-1.3); GLUCOSE,RANDOM 196 mg/dL (74-106); PHOSPHOROUS 3.4 mg/dL (2.5-4.9); POTASSIUM 4.1 mmol/L (3.5-5.1); SGOT/AST 30 U/L (15-37); SGPT/ALT 35 U/L (13-61); SODIUM 134 mmol/L (136-145); TOT PROT 6.8 g/dl (6.4-8.2)
[2018-06-25] MEDS: INSULIN SLIDING SCALE (NOVOLOG) 1 VIAL SQ SCH ×4 (06:41→22:34)
--- NOTE | 2018-06-25 08:04 | PN ---
Physical Exam: SUBJECTIVE: Patient seen and examined at bed side , no acute events over night , siting in bed with no distress, cough has improving OBJECTIVE: Vital Signs Period Temp Pulse Resp BP Sys/Amador Pulse Ox Last 24 Hr 98.4 F-99.5 F 64-97 18-24 114-172/66-95 100 General: AAO3 in NAD Head: NC/AT Eyes: EOMI, sclera anicteric ENT: Moist mucus membranes Neck: Normal ROM, supple Lungs: CTA B/L Cardio: Regular rhythm, S1 and S2 present Abdomen: Soft, nontender Extremities: Normal range of motion, Distal pulses present SKIN: Warm, Dry, normal turgor Neurologic: Cranial nerves II through XII grossly intact. Normal speech, right facial drop Laboratory Results - last 24 hr 06/24/18 06/24/18 06/24/18 11:19 16:20 18:00 WBC RBC Hgb Hct MCV MCH MCHC RDW Plt Count MPV Absolute Neuts (auto) Neutrophils % Lymphocytes % Monocytes % Eosinophils % Basophils % Nucleated RBC % Sodium Potassium Chloride Carbon Dioxide Anion Gap BUN Creatinine Creat Clearance w eGFR POC Glucometer [phone] Random Glucose Calcium Phosphorus Magnesium Total Bilirubin AST ALT Alkaline Phosphatase Troponin I 0.14 H B-Natriuretic Peptide 121.9 Total Protein Albumin 06/25/18 06/25/18 06/25/18 05:15 05:15 05:42 WBC 5.6 RBC 4.48 Hgb 12.3 Hct 36.7 MCV 81.8 MCH 27.4 MCHC 33.5 RDW 14.0 Plt Count 280 MPV 7.3 L Absolute Neuts (auto) 2.4 Neutrophils % 42.0 L Lymphocytes % 38.7 Monocytes % 10.5 H Eosinophils % 8.1 H Basophils % 0.7 Nucleated RBC % 0 Sodium 134 L Potassium 4.1 Chloride 96 L Carbon Dioxide 30 Anion Gap 8 BUN 8 Creatinine 0.7 Creat Clearance w eGFR > 60 POC Glucometer [phone] Random Glucose 196 H Calcium 8.9 Phosphorus 3.4 Magnesium 2.0 Total Bilirubin 0.3 AST 30 ALT 35 Alkaline Phosphatase 59 Troponin I B-Natriuretic Peptide Total Protein 6.8 Albumin 3.2 L Active Medications Generic Name Dose Route Start Last Admin Trade Name Freq PRN Reason Stop Dose Admin Aspirin 81 mg 06/25/18 10:00 Asa - PO DAILY [facility] Eucalyptus/Menthol/Phenol/Sorbitol 1 each 06/24/18 21:16 Cepastat Lozenge - MM Q4H PRN SORE THROAT Guaifenesin 5 ml 06/24/18 21:16 06/25/18 01:20 Diabetic Tussin Dm - PO 5 ml Q4H PRN Administration COUGH Heparin Sodium (Porcine) 5,000 unit 06/24/18 22:00 06/25/18 05:53 Heparin - SQ 5,000 unit TID [facility] Administration Azithromycin 500 mg in 250 mls @ 250 mls/hr 06/25/18 10:00 Zithromax 500mg Ivpb (Pre-Docked) IVPB DAILY [facility] Ceftriaxone Sodium 2 gm/ 100 mls @ 100 mls/hr 06/25/18 10:00 Dextrose IVPB DAILY [facility] Protocol Insulin Aspart 1 vial 06/24/18 22:00 06/25/18 06:41 Novolog Vial Sliding Scale - SQ 2 units ACHS [facility] Administration Protocol Losartan Potassium 100 mg 06/25/18 10:00 Cozaar - PO DAILY [facility] CBC, BMP 06/25/18 05:15 06/25/18 05:15 ASSESSMENT/PLAN: 73 yr old man with DM, HTN presents with productive cough and fever returning from international travel found to be tachycardic with elevated troponins, hyponatremia, and labile blood pressure. qSOFA=2 (for RR and BP). HOD#3 #CARD * Elevated troponin, likely due to demand ischemia * Tpn=0.16, slight rise; no chest pain, no need to trend * EKG on 06/22/18 with sinus tachycardia but no ST depressions/elevations * Defer beta-blockers at this time * continue home ASA 81mg * ECHO without acute findings * cardiology consulted Dr Chadwick * Chronic Hypertension,on home losartan #PULM * CXR without acute pathology * urine legionella AG negative * Coverage with Ceftriaxone and Azithromycin switch to po ceftin per ID * Periodic apneic episodes while sleeping, suspicious for CORTEZ * Sleep study ordered #RENAL * Hyponatremia, unclear etiology * off fluids * Cy=927 (from 135) #ENDO * Chronic DM * BGM, NISS * hold oral agents #ID * qSOFA=2, likely due to community-acquired pneumonia * -lactate 1.3 (from 2.9) * Abx per ID * Urine Legionella AG negative * sputum cx MSSA #FEN * no standing fluids * Monitor electrolytes,Replete as needed * Advanced to diet 06/23/18 #PPX * DVT: Heparin * GI: not needed at this time #Disposition: Patient is safe for transfer to telemetry or ME home per primary team Visit type - Emergency Visit Emergency Visit: Yes ED Registration Date: 06/22/18 Care time: The patient presented to the Emergency Department on the above date and was hospitalized for further evaluation of their emergent condition. - New Patient This patient is new to me today: No - Critical Care Critical Care patient: Yes Total Critical Care Time (in minutes): 45 Critical Care Statement: The care of this patient involved high complexity decision making to prevent further life threatening deterioration of the patient 's condition and/or to evaluate & treat vital organ system(s) failure or risk of failure.
--- NOTE | 2018-06-25 09:57 | PN ---
Progress Note (short form) - Note Progress Note: coughing less Vital Signs Period Temp Pulse Resp BP Sys/Amador Pulse Ox Last 24 Hr 98.4 F-99.5 F 64-97 18-24 114-172/66-95 100 cor-rrr lungs clear abd soft,nt ext no edema CBC, BMP 06/25/18 05:15 06/25/18 05:15 Microbiology 06/22/18 19:58 Blood - Peripheral Venous Blood Culture - Preliminary NO GROWTH OBTAINED AFTER 48 HOURS, INCUBATION TO CONTINUE FOR 3 DAYS. 06/22/18 19:58 Blood - Peripheral Venous Blood Culture - Preliminary NO GROWTH OBTAINED AFTER 48 HOURS, INCUBATION TO CONTINUE FOR 3 DAYS. 06/22/18 20:45 Urine - Urine Clean Catch Urine Culture - Final NO GROWTH OBTAINED 06/22/18 10:00 Sputum - Expectorated Gram Stain - Final 06/22/18 10:00 Sputum - Expectorated Sputum Culture - Preliminary Pending Organism 06/22/18 19:02 Throat Throat Culture - Final NO BETA HEMOLYTIC STREPTOCOCCI ISOLATED 06/23/18 11:00 Urine For Antigen Detection Legionella Antigen - Final 06/23/18 11:00 Urine For Antigen Detection Streptococcus pneumoniae Antigen (M - Final 06/22/18 19:58 Blood - Peripheral Venous Blood Parasites Smear - Final cxray clear Active Medications Aspirin (Asa -) 81 mg PO DAILY [facility] Last Admin: 06/24/18 09:07 Dose: 81 mg Chlorhexidine Gluconate (Hibiclens For Decolonization -) 1 applic TP HS [facility] Last Admin: 06/23/18 23:32 Dose: 1 applic Eucalyptus/Menthol/Phenol/Sorbitol (Cepastat Lozenge -) 1 each MM Q4H PRN PRN Reason: SORE THROAT Last Admin: 06/23/18 01:17 Dose: 1 each Guaifenesin (Diabetic Tussin Dm -) 5 ml PO Q4H PRN PRN Reason: COUGH Last Admin: 06/24/18 15:16 Dose: 5 ml Heparin Sodium (Porcine) (Heparin -) 5,000 unit SQ TID [facility] Last Admin: 06/24/18 13:52 Dose: 5,000 unit Azithromycin (Zithromax 500mg Ivpb (Pre-Docked)) 500 mg in 250 mls @ 250 mls/ hr IVPB DAILY [facility] Last Admin: 06/24/18 09:07 Dose: 250 mls/hr Ceftriaxone Sodium 2 gm/ (Dextrose) 100 mls @ 100 mls/hr IVPB DAILY [facility]; Protocol Last Admin: 06/24/18 09:06 Dose: 100 mls/hr Insulin Aspart (Novolog Vial Sliding Scale -) 1 vial SQ ACHS [facility]; Protocol Last Admin: 06/24/18 11:20 Dose: 10 unit Losartan Potassium (Cozaar -) 100 mg PO DAILY [facility] Last Admin: 06/24/18 09:07 Dose: 100 mg Mupirocin (Bactroban Ointment (For Decolonization) -) 1 applic NS BID [facility] Stop: 06/28/18 09:59 Last Admin: 06/24/18 09:13 Dose: Not Given a/p fever cough improved- ?bronchitis day #4 rocephin/zithromax- fevers resolved switch to po ceftin to complete 7 days positive troponins- f/u with cardiology
[2018-06-25] MEDS ORDERED: CEFTRIAXONE 2 GM in DEXTROSE 5%-WATER 100 ML IVPB SCH (10:00)
[2018-06-25] MEDS ORDERED: AZITHROMYCIN IVPB 500 MG/250 ML BAG IVPB SCH (10:00)
[2018-06-25] MEDS ORDERED: DEXTROSE 5%-WATER 100 ML IVPB ONE (10:15)
[2018-06-25] MEDS: ASPIRIN 81 MG CHEWABLE TABLETS PO SCH (10:17)
[2018-06-25] MEDS: LOSARTAN POTASSIUM 50 MG TABLET (FP) PO SCH (10:18)
[2018-06-25] MEDS ORDERED: Insulin (LOG) Aspart 100 UNITS/ML VIAL SQ ONE (12:35)
--- NOTE | 2018-06-25 13:04 | PN ---
Teaching Attending Note Name of Resident: Chris Gonzalez ATTENDING PHYSICIAN STATEMENT I saw and evaluated the patient. I reviewed the resident's note and discussed the case with the resident. I agree with the resident's findings and plan as documented. SUBJECTIVE: Pt seen and examined in the ICU. Feels well, wants to go home. Still with nonproductive cough. OBJECTIVE: Vital Signs Period Temp Pulse Resp BP Sys/Amador Pulse Ox Last 24 Hr 98.4 F-99.5 F 64-97 18-24 114-172/66-95 100 Intake & Output 06/22/18 06/23/18 06/24/18 06/25/18 23:59 23:59 23:59 23:59 Intake Total 1000 2740 2100 Balance 1000 2740 2100 Weight 72.575 kg 71.214 kg 71.395 kg Gen: NAD in chair Heart: RRR Lung: decreased breath sounds at the bases Abd: soft, nontender Ext: no edema CBC, BMP 06/25/18 05:15 06/25/18 05:15 Active Medications Aspirin (Asa -) 81 mg PO DAILY [facility] Last Admin: 06/25/18 10:17 Dose: 81 mg Eucalyptus/Menthol/Phenol/Sorbitol (Cepastat Lozenge -) 1 each MM Q4H PRN PRN Reason: SORE THROAT Guaifenesin (Diabetic Tussin Dm -) 5 ml PO Q4H PRN PRN Reason: COUGH Last Admin: 06/25/18 01:20 Dose: 5 ml Heparin Sodium (Porcine) (Heparin -) 5,000 unit SQ TID [facility] Last Admin: 06/25/18 05:53 Dose: 5,000 unit Azithromycin (Zithromax 500mg Ivpb (Pre-Docked)) 500 mg in 250 mls @ 250 mls/ hr IVPB DAILY [facility] Last Admin: 06/25/18 10:53 Dose: 250 mls/hr Ceftriaxone Sodium 2 gm/ (Dextrose) 100 mls @ 100 mls/hr IVPB DAILY [facility]; Protocol Last Admin: 06/25/18 10:18 Dose: 100 mls/hr Insulin Aspart (Novolog Vial Sliding Scale -) 1 vial SQ ACHS [facility]; Protocol Last Admin: 06/25/18 13:01 Dose: Not Given Losartan Potassium (Cozaar -) 100 mg PO DAILY [facility] Last Admin: 06/25/18 10:18 Dose: 100 mg ASSESSMENT AND PLAN: Viral Syndrome/URI Sepsis +Troponins likely Demand Ischemia Lactic Acidosis improved HTN DM - antibiotics per ID - glucose control - DVT prophylaxis - can monitor on floor or d/c home
--- NOTE | 2018-06-25 15:17 | PN ---
Progress Note, Physician History of Present Illness: Patient is a 73-year-old male (b. [place]) with history of Laughlin's palsy, diabetes , HTN, brought in by family for complaint of a cough 3 weeks. Patient was away visiting in [place] when he developed this cough, initially was productive of yellow sputum, however now nonproductive. States he's been having body ache, felt hot and cold, but did not take his temperature. Yesterday, had several doses of Motrin. Denies dysuria, nausea, vomiting, chest pain. - Current Medication List Current Medications: Active Medications Aspirin (Asa -) 81 mg PO DAILY [facility] Last Admin: 06/25/18 10:17 Dose: 81 mg Eucalyptus/Menthol/Phenol/Sorbitol (Cepastat Lozenge -) 1 each MM Q4H PRN PRN Reason: SORE THROAT Guaifenesin (Diabetic Tussin Dm -) 5 ml PO Q4H PRN PRN Reason: COUGH Last Admin: 06/25/18 01:20 Dose: 5 ml Heparin Sodium (Porcine) (Heparin -) 5,000 unit SQ TID [facility] Last Admin: 06/25/18 05:53 Dose: 5,000 unit Azithromycin (Zithromax 500mg Ivpb (Pre-Docked)) 500 mg in 250 mls @ 250 mls/ hr IVPB DAILY [facility] Last Admin: 06/25/18 10:53 Dose: 250 mls/hr Ceftriaxone Sodium 2 gm/ (Dextrose) 100 mls @ 100 mls/hr IVPB DAILY [facility]; Protocol Last Admin: 06/25/18 10:18 Dose: 100 mls/hr Insulin Aspart (Novolog Vial Sliding Scale -) 1 vial SQ ACHS [facility]; Protocol Last Admin: 06/25/18 13:01 Dose: Not Given Losartan Potassium (Cozaar -) 100 mg PO DAILY [facility] Last Admin: 06/25/18 10:18 Dose: 100 mg - Objective Vital Signs: Vital Signs Temperature 97.9 F 06/25/18 14:00 Pulse Rate 88 06/25/18 14:00 Respiratory Rate 16 06/25/18 14:00 Blood Pressure 131/83 06/25/18 14:00 O2 Sat by Pulse Oximetry (%) 100 06/24/18 21:06 Eyes: Yes: WNL, Conjunctiva Clear, EOM Intact HENT: Yes: WNL, Atraumatic, Normocephalic Neck: Yes: WNL, Supple, Trachea Midline Cardiovascular: Yes: WNL, Regular Rate and Rhythm Respiratory: Yes: WNL, Regular, CTA Bilaterally Gastrointestinal: Yes: WNL, Normal Bowel Sounds Genitourinary: Yes: WNL Musculoskeletal: Yes: WNL Extremities: Yes: WNL Edema: No Integumentary: Yes: WNL Neurological: Yes: WNL, Alert, Oriented ...Motor Strength: WNL Psychiatric: Yes: WNL Labs: CBC, BMP 06/25/18 05:15 06/25/18 13:34 INR, PTT INR 1.11 (0.83-1.09) H 06/22/18 19:58 Laboratory Tests 06/22/18 06/22/18 06/22/18 18:50 18:50 19:58 WBC 8.7 RBC 4.58 Hgb 13.0 Hct 37.9 MCV 82.7 MCH 28.4 MCHC 34.4 RDW 14.0 Plt Count 266 MPV 7.8 Absolute Neuts (auto) 5.5 Neutrophils % 62.8 Neutrophils % (Manual) Band Neutrophils % Lymphocytes % 16.5 Lymphocytes % (Manual) Monocytes % 16.8 H Monocytes % (Manual) Eosinophils % 3.3 Eosinophils % (Manual) Basophils % 0.6 Basophils % (Manual) Myelocytes % (Man) Promyelocytes % (Man) Blast Cells % (Manual) Nucleated RBC % 0 Metamyelocytes Hypochromia Toxic Granulation Dohle Bodies Platelet Estimate Polychromasia Poikilocytosis Basophilic Stippling Anisocytosis Microcytosis Macrocytosis Spherocytes Sickle Cells Target Cells Tear Drop Cells Ovalocytes Stomatocytes Helmet Cells [place] Bodies [place] Rings Upson Cells Acanthocytes (Spur) Rouleaux Fragmented RBCs Schistocytes PT with INR INR VBG pH POC VBG pCO2 POC VBG pO2 Mixed VBG HCO3 Sodium Potassium Chloride Carbon Dioxide Anion Gap BUN Creatinine Creat Clearance w eGFR POC Glucometer Random Glucose Lactic Acid Calcium Phosphorus Magnesium Total Bilirubin AST ALT Alkaline Phosphatase Creatine Kinase Creatine Kinase Index CK-MB (CK-2) Troponin I B-Natriuretic Peptide Total Protein Albumin Triglycerides Cholesterol Total LDL Cholesterol HDL Cholesterol Urine Color Urine Appearance Urine pH Ur Specific [place] Urine Protein Urine Glucose (UA) Urine Ketones Urine Blood Urine Nitrite Urine Bilirubin Urine Urobilinogen Ur Leukocyte Esterase Influenza A (Rapid) Negative Influenza B (Rapid) Negative RSV Rapid Group A Strep Rapid Negative TB Test (QFT) Nil TB Test (QFT) Mitogen TB Test (QFT) Antigen TB Positive Criteria 06/22/18 06/22/18 06/22/18 19:58 19:58 19:58 WBC RBC Hgb Hct MCV MCH MCHC RDW Plt Count MPV Absolute Neuts (auto) Neutrophils % Neutrophils % (Manual) Band Neutrophils % Lymphocytes % Lymphocytes % (Manual) Monocytes % Monocytes % (Manual) Eosinophils % Eosinophils % (Manual) Basophils % Basophils % (Manual) Myelocytes % (Man) Promyelocytes % (Man) Blast Cells % (Manual) Nucleated RBC % Metamyelocytes Hypochromia Toxic Granulation Dohle Bodies Platelet Estimate Polychromasia Poikilocytosis Basophilic Stippling Anisocytosis Microcytosis Macrocytosis Spherocytes Sickle Cells Target Cells Tear Drop Cells Ovalocytes Stomatocytes Helmet Cells [place] Bodies [place] Rings Favian Cells Acanthocytes (Spur) Rouleaux Fragmented RBCs Schistocytes PT with INR INR VBG pH POC VBG pCO2 POC VBG pO2 Mixed VBG HCO3 Sodium 129 L Potassium 4.6 Chloride 95 L Carbon Dioxide 23 Anion Gap 11 BUN 10 Creatinine 0.7 Creat Clearance w eGFR > 60 POC Glucometer Random Glucose 179 H Lactic Acid 3.9 H* Calcium 8.9 Phosphorus Magnesium Total Bilirubin 0.3 AST 26 ALT 32 Alkaline Phosphatase 63 Creatine Kinase 392 H Creatine Kinase Index 0.9 CK-MB (CK-2) 3.8 H Troponin I 0.08 H B-Natriuretic Peptide Total Protein 7.6 Albumin 3.6 Triglycerides Cholesterol Total LDL Cholesterol HDL Cholesterol Urine Color Urine Appearance Urine pH Ur Specific [place] Urine Protein Urine Glucose (UA) Urine Ketones Urine Blood Urine Nitrite Urine Bilirubin Urine Urobilinogen Ur Leukocyte Esterase Influenza A (Rapid) Influenza B (Rapid) RSV Rapid Group A Strep Rapid TB Test (QFT) Nil TB Test (QFT) Mitogen TB Test (QFT) Antigen TB Positive Criteria 06/22/18 06/22/18 06/22/18 19:58 19:58 20:30 WBC RBC Hgb Hct MCV MCH MCHC RDW Plt Count MPV Absolute Neuts (auto) Neutrophils % Neutrophils % (Manual) Band Neutrophils % Lymphocytes % Lymphocytes % (Manual) Monocytes % Monocytes % (Manual) Eosinophils % Eosinophils % (Manual) Basophils % Basophils % (Manual) Myelocytes % (Man) Promyelocytes % (Man) Blast Cells % (Manual) Nucleated RBC % Metamyelocytes Hypochromia Toxic Granulation Dohle Bodies Platelet Estimate Polychromasia Poikilocytosis Basophilic Stippling Anisocytosis Microcytosis Macrocytosis Spherocytes Sickle Cells Target Cells Tear Drop Cells Ovalocytes Stomatocytes Helmet Cells [place] Bodies [place] Rings Upson Cells Acanthocytes (Spur) Rouleaux Fragmented RBCs Schistocytes PT with INR 13.10 H INR 1.11 H VBG pH 7.36 POC VBG pCO2 46.2 POC VBG pO2 37.1 Mixed VBG HCO3 25.4 H Sodium Potassium Chloride Carbon Dioxide Anion Gap BUN Creatinine Creat Clearance w eGFR POC Glucometer Random Glucose Lactic Acid Calcium Phosphorus Magnesium Total Bilirubin AST ALT Alkaline Phosphatase Creatine Kinase Creatine Kinase Index CK-MB (CK-2) Troponin I B-Natriuretic Peptide Total Protein Albumin Triglycerides Cholesterol Total LDL Cholesterol HDL Cholesterol Urine Color Urine Appearance Urine pH Ur Specific [place] Urine Protein Urine Glucose (UA) Urine Ketones Urine Blood Urine Nitrite Urine Bilirubin Urine Urobilinogen Ur Leukocyte Esterase Influenza A (Rapid) Influenza B (Rapid) RSV Rapid Group A Strep Rapid TB Test (QFT) Nil 0.73 TB Test (QFT) Mitogen >10.00 TB Test (QFT) Antigen >10.00 TB Positive Criteria 06/22/18 06/22/18 06/22/18 20:45 21:05 22:05 WBC RBC Hgb Hct MCV MCH MCHC RDW Plt Count MPV Absolute Neuts (auto) Neutrophils % Neutrophils % (Manual) Band Neutrophils % Lymphocytes % Lymphocytes % (Manual) Monocytes % Monocytes % (Manual) Eosinophils % Eosinophils % (Manual) Basophils % Basophils % (Manual) Myelocytes % (Man) Promyelocytes % (Man) Blast Cells % (Manual) Nucleated RBC % Metamyelocytes Hypochromia Toxic Granulation [place]oh[place] Bodies Platelet Estimate Polychromasia Poikilocytosis Basophilic Stippling Anisocytosis Microcytosis Macrocytosis Spherocytes Sickle Cells Target Cells Tear Drop Cells Ovalocytes Stomatocytes Helmet Cells [place] Bodies [place] Rings Upson Cells Acanthocytes (Spur) Rouleaux Fragmented RBCs Schistocytes PT with INR INR VBG pH POC VBG pCO2 POC VBG pO2 Mixed VBG HCO3 Sodium Potassium Chloride Carbon Dioxide Anion Gap BUN Creatinine Creat Clearance w eGFR POC Glucometer [phone] Random Glucose Lactic Acid Calcium Phosphorus Magnesium Total Bilirubin AST ALT Alkaline Phosphatase Creatine Kinase 299 Creatine Kinase Index 0.9 CK-MB (CK-2) 2.9 Troponin I 0.10 H B-Natriuretic Peptide Total Protein Albumin Triglycerides Cholesterol Total LDL Cholesterol HDL Cholesterol Urine Color Yellow Urine Appearance Clear Urine pH 5.0 Ur Specific [place] 1.024 Urine Protein Negative Urine Glucose (UA) 1+ H Urine Ketones Negative Urine Blood Negative Urine Nitrite Negative Urine Bilirubin Negative Urine Urobilinogen Negative Ur Leukocyte Esterase Negative Influenza A (Rapid) Influenza B (Rapid) RSV Rapid Group A Strep Rapid TB Test (QFT) Nil TB Test (QFT) Mitogen TB Test (QFT) Antigen TB Positive Criteria 06/22/18 06/23/18 06/23/18 22:05 05:15 05:15 WBC 5.9 RBC 4.15 Hgb 11.7 Hct 34.1 L MCV 82.2 MCH 28.2 MCHC 34.3 RDW 13.8 Plt Count 234 MPV 7.5 Absolute Neuts (auto) 3.0 Neutrophils % 51.4 Neutrophils % (Manual) 55.6 Band Neutrophils % 1.0 Lymphocytes % 26.4 D Lymphocytes % (Manual) 22.2 Monocytes % 20.1 H Monocytes % (Manual) 14 H Eosinophils % 1.6 Eosinophils % (Manual) 1.0 Basophils % 0.5 Basophils % (Manual) 0.0 Myelocytes % (Man) 0 Promyelocytes % (Man) 0 Blast Cells % (Manual) 0 Nucleated RBC % 0 Metamyelocytes 0 Hypochromia 0 Toxic Granulation 0 Dohle Bodies 0 Platelet Estimate Normal Polychromasia 0 Poikilocytosis 0 Basophilic Stippling 0 Anisocytosis 0 Microcytosis 0 Macrocytosis 0 Spherocytes 0 Sickle Cells 0 Target Cells 0 Tear Drop Cells 0 Ovalocytes 0 Stomatocytes 0 Helmet Cells 0 [place] Bodies 0 [place] Rings 0 Favian Cells 0 Acanthocytes (Spur) 0 Rouleaux 0 Fragmented RBCs 0 Schistocytes 0 PT with INR INR VBG pH POC VBG pCO2 POC VBG pO2 Mixed VBG HCO3 Sodium 135 L Potassium 4.6 Chloride 101 Carbon Dioxide 29 Anion Gap 5 L BUN 8 Creatinine 0.8 Creat Clearance w eGFR > 60 POC Glucometer Random Glucose 253 H Lactic Acid 2.9 H* Calcium 7.8 L Phosphorus 3.0 Magnesium 1.7 L Total Bilirubin AST ALT Alkaline Phosphatase Creatine Kinase Creatine Kinase Index CK-MB (CK-2) Troponin I B-Natriuretic Peptide Total Protein Albumin Triglycerides 105 Cholesterol 159 Total LDL Cholesterol 108 H HDL Cholesterol 32 L Urine Color Urine Appearance Urine pH Ur Specific [place] Urine Protein Urine Glucose (UA) Urine Ketones Urine Blood Urine Nitrite Urine Bilirubin Urine Urobilinogen Ur Leukocyte Esterase Influenza A (Rapid) Influenza B (Rapid) RSV Rapid Group A Strep Rapid TB Test (QFT) Nil TB Test (QFT) Mitogen TB Test (QFT) Antigen TB Positive Criteria 06/23/18 06/23/18 06/23/18 05:15 05:47 09:31 WBC RBC Hgb Hct MCV MCH MCHC RDW Plt Count MPV Absolute Neuts (auto) Neutrophils % Neutrophils % (Manual) Band Neutrophils % Lymphocytes % Lymphocytes % (Manual) Monocytes % Monocytes % (Manual) Eosinophils % Eosinophils % (Manual) Basophils % Basophils % (Manual) Myelocytes % (Man) Promyelocytes % (Man) Blast Cells % (Manual) Nucleated RBC % Metamyelocytes Hypochromia Toxic Granulation Dohle Bodies Platelet Estimate Polychromasia Poikilocytosis Basophilic Stippling Anisocytosis Microcytosis Macrocytosis Spherocytes Sickle Cells Target Cells Tear Drop Cells Ovalocytes Stomatocytes Helmet Cells [place] Bodies [place] Rings Favian Cells Acanthocytes (Spur) Rouleaux Fragmented RBCs Schistocytes PT with INR INR VBG pH POC VBG pCO2 POC VBG pO2 Mixed VBG HCO3 Sodium Potassium Chloride Carbon Dioxide Anion Gap BUN Creatinine Creat Clearance w eGFR POC Glucometer [phone] Random Glucose Lactic Acid 1.3 Calcium Phosphorus Magnesium Total Bilirubin AST ALT Alkaline Phosphatase Creatine Kinase Creatine Kinase Index CK-MB (CK-2) Troponin I 0.10 H B-Natriuretic Peptide Total Protein Albumin Triglycerides Cholesterol Total LDL Cholesterol HDL Cholesterol Urine Color Urine Appearance Urine pH Ur Specific [place] Urine Protein Urine Glucose (UA) Urine Ketones Urine Blood Urine Nitrite Urine Bilirubin Urine Urobilinogen Ur Leukocyte Esterase Influenza A (Rapid) Influenza B (Rapid) RSV Rapid Group A Strep Rapid TB Test (QFT) Nil TB Test (QFT) Mitogen TB Test (QFT) Antigen TB Positive Criteria 06/23/18 06/23/18 06/23/18 10:00 11:00 11:09 WBC RBC Hgb Hct MCV MCH MCHC RDW Plt Count MPV Absolute Neuts (auto) Neutrophils % Neutrophils % (Manual) Band Neutrophils % Lymphocytes % Lymphocytes % (Manual) Monocytes % Monocytes % (Manual) Eosinophils % Eosinophils % (Manual) Basophils % Basophils % (Manual) Myelocytes % (Man) Promyelocytes % (Man) Blast Cells % (Manual) Nucleated RBC % Metamyelocytes Hypochromia Toxic Granulation Doh[place] Bodies Platelet Estimate Polychromasia Poikilocytosis Basophilic Stippling Anisocytosis Microcytosis Macrocytosis Spherocytes Sickle Cells Target Cells Tear Drop Cells Ovalocytes Stomatocytes Helmet Cells [place] Bodies [place] Rings Upson Cells Acanthocytes (Spur) Rouleaux Fragmented RBCs Schistocytes PT with INR INR VBG pH POC VBG pCO2 POC VBG pO2 Mixed VBG HCO3 Sodium Potassium Chloride Carbon Dioxide Anion Gap BUN Creatinine Creat Clearance w eGFR POC Glucometer [phone] Random Glucose Lactic Acid Calcium Phosphorus Magnesium Total Bilirubin AST ALT Alkaline Phosphatase Creatine Kinase Creatine Kinase Index CK-MB (CK-2) Troponin I B-Natriuretic Peptide Total Protein Albumin Triglycerides Cholesterol Total LDL Cholesterol HDL Cholesterol Urine Color Straw Urine Appearance Clear Urine pH 6.0 Ur Specific [place] 1.009 L Urine Protein Negative Urine Glucose (UA) 1+ H Urine Ketones Negative Urine Blood Negative Urine Nitrite Negative Urine Bilirubin Negative Urine Urobilinogen Negative Ur Leukocyte Esterase Negative Influenza A (Rapid) Influenza B (Rapid) RSV Rapid Negative Group A Strep Rapid TB Test (QFT) Nil TB Test (QFT) Mitogen TB Test (QFT) Antigen TB Positive Criteria 06/23/18 06/23/18 06/23/18 11:30 15:30 16:46 WBC RBC Hgb Hct MCV MCH MCHC RDW Plt Count MPV Absolute Neuts (auto) Neutrophils % Neutrophils % (Manual) Band Neutrophils % Lymphocytes % Lymphocytes % (Manual) Monocytes % Monocytes % (Manual) Eosinophils % Eosinophils % (Manual) Basophils % Basophils % (Manual) Myelocytes % (Man) Promyelocytes % (Man) Blast Cells % (Manual) Nucleated RBC % Metamyelocytes Hypochromia Toxic Granulation Dohle Bodies Platelet Estimate Polychromasia Poikilocytosis Basophilic Stippling Anisocytosis Microcytosis Macrocytosis Spherocytes Sickle Cells Target Cells Tear Drop Cells Ovalocytes Stomatocytes Helmet Cells [place] Bodies [place] Rings Upson Cells Acanthocytes (Spur) Rouleaux Fragmented RBCs Schistocytes PT with INR INR VBG pH POC VBG pCO2 POC VBG pO2 Mixed VBG HCO3 Sodium Potassium Chloride Carbon Dioxide Anion Gap BUN Creatinine Creat Clearance w eGFR POC Glucometer [phone] Random Glucose Lactic Acid Calcium Phosphorus Magnesium Total Bilirubin AST ALT Alkaline Phosphatase Creatine Kinase 442 H 482 H Creatine Kinase Index 1.2 1.2 CK-MB (CK-2) 5.6 H 6.1 H Troponin I 0.11 H 0.12 H B-Natriuretic Peptide Total Protein Albumin Triglycerides Cholesterol Total LDL Cholesterol HDL Cholesterol Urine Color Urine Appearance Urine pH Ur Specific [place] Urine Protein Urine Glucose (UA) Urine Ketones Urine Blood Urine Nitrite Urine Bilirubin Urine Urobilinogen Ur Leukocyte Esterase Influenza A (Rapid) Influenza B (Rapid) RSV Rapid Group A Strep Rapid TB Test (QFT) Nil TB Test (QFT) Mitogen TB Test (QFT) Antigen TB Positive Criteria 06/23/18 06/23/18 06/24/18 21:05 23:15 05:15 WBC 6.6 RBC 4.45 Hgb 12.1 Hct 36.6 MCV 82.2 MCH 27.2 MCHC 33.1 RDW 13.8 Plt Count 271 MPV 7.7 Absolute Neuts (auto) 3.1 Neutrophils % 47.5 Neutrophils % (Manual) Band Neutrophils % Lymphocytes % 35.0 D Lymphocytes % (Manual) Monocytes % 11.9 H Monocytes % (Manual) Eosinophils % 5.0 H D Eosinophils % (Manual) Basophils % 0.6 Basophils % (Manual) Myelocytes % (Man) Promyelocytes % (Man) Blast Cells % (Manual) Nucleated RBC % 0 Metamyelocytes Hypochromia Toxic Granulation Dohle Bodies Platelet Estimate Polychromasia Poikilocytosis Basophilic Stippling Anisocytosis Microcytosis Macrocytosis Spherocytes Sickle Cells Target Cells Tear Drop Cells Ovalocytes Stomatocytes Helmet Cells [place] Bodies [place] Rings Favian Cells Acanthocytes (Spur) Rouleaux Fragmented RBCs Schistocytes PT with INR INR VBG pH POC VBG pCO2 POC VBG pO2 Mixed VBG HCO3 Sodium Potassium Chloride Carbon Dioxide Anion Gap BUN Creatinine Creat Clearance w eGFR POC Glucometer [phone] Random Glucose Lactic Acid Calcium Phosphorus Magnesium Total Bilirubin AST ALT Alkaline Phosphatase Creatine Kinase Creatine Kinase Index CK-MB (CK-2) Troponin I 0.14 H B-Natriuretic Peptide Total Protein Albumin Triglycerides Cholesterol Total LDL Cholesterol HDL Cholesterol Urine Color Urine Appearance Urine pH Ur Specific [place] Urine Protein Urine Glucose (UA) Urine Ketones Urine Blood Urine Nitrite Urine Bilirubin Urine Urobilinogen Ur Leukocyte Esterase Influenza A (Rapid) Influenza B (Rapid) RSV Rapid Group A Strep Rapid TB Test (QFT) Nil TB Test (QFT) Mitogen TB Test (QFT) Antigen TB Positive Criteria 06/24/18 06/24/18 06/24/18 05:15 05:15 05:32 WBC RBC Hgb Hct MCV MCH MCHC RDW Plt Count MPV Absolute Neuts (auto) Neutrophils % Neutrophils % (Manual) Band Neutrophils % Lymphocytes % Lymphocytes % (Manual) Monocytes % Monocytes % (Manual) Eosinophils % Eosinophils % (Manual) Basophils % Basophils % (Manual) Myelocytes % (Man) Promyelocytes % (Man) Blast Cells % (Manual) Nucleated RBC % Metamyelocytes Hypochromia Toxic Granulation Dohle Bodies Platelet Estimate Polychromasia Poikilocytosis Basophilic Stippling Anisocytosis Microcytosis Macrocytosis Spherocytes Sickle Cells Target Cells Tear Drop Cells Ovalocytes Stomatocytes Helmet Cells [place] Bodies [place] Rings Favian Cells Acanthocytes (Spur) Rouleaux Fragmented RBCs Schistocytes PT with INR INR VBG pH POC VBG pCO2 POC VBG pO2 Mixed VBG HCO3 Sodium 133 L Potassium 4.1 Chloride 97 L Carbon Dioxide 30 Anion Gap 6 L BUN 6 L Creatinine 0.6 Creat Clearance w eGFR > 60 POC Glucometer 178.06255 Random Glucose 180 H Lactic Acid Calcium 8.3 L Phosphorus 2.9 Magnesium 1.9 Total Bilirubin 0.2 AST 24 ALT 27 Alkaline Phosphatase 57 Creatine Kinase Creatine Kinase Index CK-MB (CK-2) Troponin I 0.16 H B-Natriuretic Peptide Total Protein 6.9 Albumin 3.2 L Triglycerides Cholesterol Total LDL Cholesterol HDL Cholesterol Urine Color Urine Appearance Urine pH Ur Specific [place] Urine Protein Urine Glucose (UA) Urine Ketones Urine Blood Urine Nitrite Urine Bilirubin Urine Urobilinogen Ur Leukocyte Esterase Influenza A (Rapid) Influenza B (Rapid) RSV Rapid Group A Strep Rapid TB Test (QFT) Nil TB Test (QFT) Mitogen TB Test (QFT) Antigen TB Positive Criteria 06/24/18 06/24/18 06/24/18 11:19 16:20 18:00 WBC RBC Hgb Hct MCV MCH MCHC RDW Plt Count MPV Absolute Neuts (auto) Neutrophils % Neutrophils % (Manual) Band Neutrophils % Lymphocytes % Lymphocytes % (Manual) Monocytes % Monocytes % (Manual) Eosinophils % Eosinophils % (Manual) Basophils % Basophils % (Manual) Myelocytes % (Man) Promyelocytes % (Man) Blast Cells % (Manual) Nucleated RBC % Metamyelocytes Hypochromia Toxic Granulation Dohle Bodies Platelet Estimate Polychromasia Poikilocytosis Basophilic Stippling Anisocytosis Microcytosis Macrocytosis Spherocytes Sickle Cells Target Cells Tear Drop Cells Ovalocytes Stomatocytes Helmet Cells [place] Bodies [place] Rings Upson Cells Acanthocytes (Spur) Rouleaux Fragmented RBCs Schistocytes PT with INR INR VBG pH POC VBG pCO2 POC VBG pO2 Mixed VBG HCO3 Sodium Potassium Chloride Carbon Dioxide Anion Gap BUN Creatinine Creat Clearance w eGFR POC Glucometer [phone] Random Glucose Lactic Acid Calcium Phosphorus Magnesium Total Bilirubin AST ALT Alkaline Phosphatase Creatine Kinase Creatine Kinase Index CK-MB (CK-2) Troponin I 0.14 H B-Natriuretic Peptide 121.9 Total Protein Albumin Triglycerides Cholesterol Total LDL Cholesterol HDL Cholesterol Urine Color Urine Appearance Urine pH Ur Specific [place] Urine Protein Urine Glucose (UA) Urine Ketones Urine Blood Urine Nitrite Urine Bilirubin Urine Urobilinogen Ur Leukocyte Esterase Influenza A (Rapid) Influenza B (Rapid) RSV Rapid Group A Strep Rapid TB Test (QFT) Nil TB Test (QFT) Mitogen TB Test (QFT) Antigen TB Positive Criteria 06/24/18 06/25/18 06/25/18 21:49 05:15 05:15 WBC 5.6 RBC 4.48 Hgb 12.3 Hct 36.7 MCV 81.8 MCH 27.4 MCHC 33.5 RDW 14.0 Plt Count 280 MPV 7.3 L Absolute Neuts (auto) 2.4 Neutrophils % 42.0 L Neutrophils % (Manual) Band Neutrophils % Lymphocytes % 38.7 Lymphocytes % (Manual) Monocytes % 10.5 H Monocytes % (Manual) Eosinophils % 8.1 H Eosinophils % (Manual) Basophils % 0.7 Basophils % (Manual) Myelocytes % (Man) Promyelocytes % (Man) Blast Cells % (Manual) Nucleated RBC % 0 Metamyelocytes Hypochromia Toxic Granulation Dohle Bodies Platelet Estimate Polychromasia Poikilocytosis Basophilic Stippling Anisocytosis Microcytosis Macrocytosis Spherocytes Sickle Cells Target Cells Tear Drop Cells Ovalocytes Stomatocytes Helmet Cells [place] Bodies [place] Rings Favian Cells Acanthocytes (Spur) Rouleaux Fragmented RBCs Schistocytes PT with INR INR VBG pH POC VBG pCO2 POC VBG pO2 Mixed VBG HCO3 Sodium 134 L Potassium 4.1 Chloride 96 L Carbon Dioxide 30 Anion Gap 8 BUN 8 Creatinine 0.7 Creat Clearance w eGFR > 60 POC Glucometer > 400 Random Glucose 196 H Lactic Acid Calcium 8.9 Phosphorus 3.4 Magnesium 2.0 Total Bilirubin 0.3 AST 30 ALT 35 Alkaline Phosphatase 59 Creatine Kinase Creatine Kinase Index CK-MB (CK-2) Troponin I B-Natriuretic Peptide Total Protein 6.8 Albumin 3.2 L Triglycerides Cholesterol Total LDL Cholesterol HDL Cholesterol Urine Color Urine Appearance Urine pH Ur Specific [place] Urine Protein Urine Glucose (UA) Urine Ketones Urine Blood Urine Nitrite Urine Bilirubin Urine Urobilinogen Ur Leukocyte Esterase Influenza A (Rapid) Influenza B (Rapid) RSV Rapid Group A Strep Rapid TB Test (QFT) Nil TB Test (QFT) Mitogen TB Test (QFT) Antigen TB Positive Criteria 06/25/18 06/25/18 05:42 13:34 WBC RBC Hgb Hct MCV MCH MCHC RDW Plt Count MPV Absolute Neuts (auto) Neutrophils % Neutrophils % (Manual) Band Neutrophils % Lymphocytes % Lymphocytes % (Manual) Monocytes % Monocytes % (Manual) Eosinophils % Eosinophils % (Manual) Basophils % Basophils % (Manual) Myelocytes % (Man) Promyelocytes % (Man) Blast Cells % (Manual) Nucleated RBC % Metamyelocytes Hypochromia Toxic Granulation Dohle Bodies Platelet Estimate Polychromasia Poikilocytosis Basophilic Stippling Anisocytosis Microcytosis Macrocytosis Spherocytes Sickle Cells Target Cells Tear Drop Cells Ovalocytes Stomatocytes Helmet Cells [place] Bodies [place] Rings Upson Cells Acanthocytes (Spur) Rouleaux Fragmented RBCs Schistocytes PT with INR INR VBG pH POC VBG pCO2 POC VBG pO2 Mixed VBG HCO3 Sodium Potassium Chloride Carbon Dioxide Anion Gap BUN Creatinine Creat Clearance w eGFR POC Glucometer [phone] Random Glucose 419 H* Lactic Acid Calcium Phosphorus Magnesium Total Bilirubin AST ALT Alkaline Phosphatase Creatine Kinase Creatine Kinase Index CK-MB (CK-2) Troponin I B-Natriuretic Peptide Total Protein Albumin Triglycerides Cholesterol Total LDL Cholesterol HDL Cholesterol Urine Color Urine Appearance Urine pH Ur Specific [place] Urine Protein Urine Glucose (UA) Urine Ketones Urine Blood Urine Nitrite Urine Bilirubin Urine Urobilinogen Ur Leukocyte Esterase Influenza A (Rapid) Influenza B (Rapid) RSV Rapid Group A Strep Rapid TB Test (QFT) Nil TB Test (QFT) Mitogen TB Test (QFT) Antigen TB Positive Criteria Assessment/Plan - Problems (1) Cough Assessment/Plan: On antibiotics. Code(s): R05 - COUGH (2) Elevated troponin I level Assessment/Plan: EKG: sinus tachycardia; otherwise normal EKG. Multiple factors, including sepsis, sleep apnea, HTN, and CHF are contributors to demand ischemia. Denies personal or family hx of heart disease; nonsmoker. HTN, DM. Pt states he had a negative stress test at [facility] two years ago "after they told me I needed a cardiac cath because I had had a heart attack". He will require coronary artery evaluation once stable, but is presently reluctant to consider this "until my cough is gone and I go home". 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 May be transfered to telemetry will need MIBI st for risk stratification prior to discharge. cont ASA started Lipitor 40 to reduce LDL below 70 mg/dl Code(s): R74.8 - ABNORMAL LEVELS OF OTHER SERUM ENZYMES (3) HTN (hypertension) Assessment/Plan: On losartan 100 mg daily. ECHO report: normal LVEF; normal wall thicknesses;mild AR and MR. Code(s): I10 - ESSENTIAL (PRIMARY) HYPERTENSION (4) T2DM (type 2 diabetes mellitus) Code(s): E11.9 - TYPE 2 DIABETES MELLITUS WITHOUT COMPLICATIONS (5) Sleep apnea Assessment/Plan: f/u workup Code(s): G47.30 - SLEEP APNEA, UNSPECIFIED Assessment/Plan CCU time spent: 35 minutes.
--- NOTE | 2018-06-25 15:38 | PN ---
Teaching Attending Note Name of Resident: Horace Pierre ATTENDING PHYSICIAN STATEMENT I saw and evaluated the patient. I reviewed the resident's note and discussed the case with the resident. I agree with the resident's findings and plan as documented. SUBJECTIVE: Feels better, cough improving. No fever/chills OBJECTIVE: Afebrile, Hemodynamically Stable. Last Vital Signs Temp Pulse Resp BP Pulse Ox 97.9 F 88 16 131/83 100 06/25/18 14:00 06/25/18 14:00 06/25/18 14:00 06/25/18 14:00 06/24/18 21:06 HEENT - Atraumatic, Normocephalic Heart - S1, S2, RRR Lungs - clear to auscultation Abdomen - Soft, non-tender. Bowel Sound normal. Extremities - no calf tenderness Laboratory Results - last 24 hr 06/22/18 06/24/18 06/24/18 20:30 16:20 18:00 WBC RBC Hgb Hct MCV MCH MCHC RDW Plt Count MPV Absolute Neuts (auto) Neutrophils % Lymphocytes % Monocytes % Eosinophils % Basophils % Nucleated RBC % Sodium Potassium Chloride Carbon Dioxide Anion Gap BUN Creatinine Creat Clearance w eGFR POC Glucometer [phone] Random Glucose Calcium Phosphorus Magnesium Total Bilirubin AST ALT Alkaline Phosphatase Troponin I 0.14 H B-Natriuretic Peptide 121.9 Total Protein Albumin TB Test (QFT) Nil 0.73 TB Test (QFT) Mitogen >10.00 TB Test (QFT) Antigen >10.00 TB Positive Criteria 06/24/18 06/25/18 06/25/18 21:49 05:15 05:15 WBC 5.6 RBC 4.48 Hgb 12.3 Hct 36.7 MCV 81.8 MCH 27.4 MCHC 33.5 RDW 14.0 Plt Count 280 MPV 7.3 L Absolute Neuts (auto) 2.4 Neutrophils % 42.0 L Lymphocytes % 38.7 Monocytes % 10.5 H Eosinophils % 8.1 H Basophils % 0.7 Nucleated RBC % 0 Sodium 134 L Potassium 4.1 Chloride 96 L Carbon Dioxide 30 Anion Gap 8 BUN 8 Creatinine 0.7 Creat Clearance w eGFR > 60 POC Glucometer > 400 Random Glucose 196 H Calcium 8.9 Phosphorus 3.4 Magnesium 2.0 Total Bilirubin 0.3 AST 30 ALT 35 Alkaline Phosphatase 59 Troponin I B-Natriuretic Peptide Total Protein 6.8 Albumin 3.2 L TB Test (QFT) Nil TB Test (QFT) Mitogen TB Test (QFT) Antigen TB Positive Criteria 06/25/18 06/25/18 05:42 13:34 WBC RBC Hgb Hct MCV MCH MCHC RDW Plt Count MPV Absolute Neuts (auto) Neutrophils % Lymphocytes % Monocytes % Eosinophils % Basophils % Nucleated RBC % Sodium Potassium Chloride Carbon Dioxide Anion Gap BUN Creatinine Creat Clearance w eGFR POC Glucometer [phone] Random Glucose 419 H* Calcium Phosphorus Magnesium Total Bilirubin AST ALT Alkaline Phosphatase Troponin I B-Natriuretic Peptide Total Protein Albumin TB Test (QFT) Nil TB Test (QFT) Mitogen TB Test (QFT) Antigen TB Positive Criteria Current Medications Generic Name Dose Route Start Last Admin Trade Name Freq PRN Reason Stop Dose Admin Aspirin 81 mg 06/25/18 10:00 06/25/18 10:17 Asa - PO 81 mg DAILY YANIRA Administration Atorvastatin Calcium 40 mg 06/25/18 22:00 Lipitor - PO HS YANIRA Eucalyptus/Menthol/Phenol/Sorbitol 1 each 06/24/18 21:16 Cepastat Lozenge - MM Q4H PRN SORE THROAT Guaifenesin 5 ml 06/24/18 21:16 06/25/18 01:20 Diabetic Tussin Dm - PO 5 ml Q4H PRN Administration COUGH Heparin Sodium (Porcine) 5,000 unit 06/24/18 22:00 06/25/18 05:53 Heparin - SQ 5,000 unit TID YANIRA Administration Azithromycin 500 mg in 250 mls @ 250 mls/hr 06/25/18 10:00 06/25/18 10:53 Zithromax 500mg Ivpb (Pre-Docked) IVPB 250 mls/hr DAILY YANIRA Administration Ceftriaxone Sodium 2 gm/ 100 mls @ 100 mls/hr 06/25/18 10:00 06/25/18 10:18 Dextrose IVPB 100 mls/hr DAILY YANIRA Administration Protocol Insulin Aspart 1 vial 06/24/18 22:00 06/25/18 13:01 Novolog Vial Sliding Scale - SQ Not Given ACHS YANIRA Protocol Losartan Potassium 100 mg 06/25/18 10:00 06/25/18 10:18 Cozaar - PO 100 mg DAILY YANIRA Administration ASSESSMENT AND PLAN: 73 year old male with HTN, CAD, DM 2, HLD, presented with increasing SOB and productive cough ongoing for several weeks while he was in [place], without chest pain/hemoptysis. In ED, he was found to be septic with bilateral wheeze, Fever, lactic acidosis, tachycardia, hypotension. 1. Sepsis secondary to Acute Bronchitis - sepsis resolved. No consolidation on chest imaging. Currently afebrile, hemodynamically stable. Legionella and Strep Ag neg. Blood Cx neg so far. Sputum Cx presumptive MSSA Continue Ceftriaxone/Azithro for now 2. Troponin egression, likely sec to demand ischemia in setting of underlying CAD Denies chest pain TropI max 0.16 ECG - no acute changes Echo - trivial pericardial effusion On Aspirin and Statin Cardiology recommends MIBI 06/26 3. DM 2 - Maintain on sliding scale insulin. Sitagliptin, Metformin, Glipizide held. 4. HTN - Home anti-hypertensive Losartan resumed 5. HLD - continue Statin DVT Px - Heparin SQ
[2018-06-25] MEDS ORDERED: PT OWN MED DRAWER 7, Y5N ONE ×2 (16:03→16:07)
--- NOTE | 2018-06-25 16:47 | PN ---
Physical Exam: SUBJECTIVE: Patient seen and examined at bedside. He continues to endorse nonproductive cough. He denies subjective fevers, chills, shortness of breath, chest pain, palpitations, abdominal pain, nausea, vomiting. OBJECTIVE: Vital Signs Period Temp Pulse Resp BP Sys/Amador Pulse Ox Last 24 Hr 97.9 F-98.9 F 64-97 16-24 114-172/66-95 100 GENERAL: The patient is awake, alert, and fully oriented, in no acute distress. HEAD: Normocephalic, atraumatic EYES: PERRL, extraocular movements intact, sclera anicteric, conjunctiva clear. ENT: Oropharynx clear without exudates, moist mucous membranes. NECK: Supple without lymphadenopathy LUNGS: Breath sounds equal, faint rhonchi and crackles auscultated bilaterally. No wheezes. No accessory muscle use. HEART: Regular rate and rhythm, S1, S2 without murmur, rub or gallop. ABDOMEN: Soft, nontender, nondistended. Normoactive bowel sounds, no guarding, no rebound tenderness. EXTREMITIES: 2+ pulses, warm, well-perfused, no lower extremity edema. NEUROLOGICAL: CN II-XII grossly intact. Sensation grossly intact b/l upper and lower extremities. Strength 5/5 b/l upper and lower extremities. PSYCH: Normal mood, normal affect upon my encounter. SKIN: Warm, dry. Laboratory Results - last 24 hr 06/22/18 06/24/18 06/24/18 20:30 18:00 21:49 WBC RBC Hgb Hct MCV MCH MCHC RDW Plt Count MPV Absolute Neuts (auto) Neutrophils % Lymphocytes % Monocytes % Eosinophils % Basophils % Nucleated RBC % Sodium Potassium Chloride Carbon Dioxide Anion Gap BUN Creatinine Creat Clearance w eGFR POC Glucometer > 400 Random Glucose Calcium Phosphorus Magnesium Total Bilirubin AST ALT Alkaline Phosphatase Troponin I 0.14 H B-Natriuretic Peptide 121.9 Total Protein Albumin TB Test (QFT) Nil 0.73 TB Test (QFT) Mitogen >10.00 TB Test (QFT) Antigen >10.00 TB Positive Criteria 06/25/18 06/25/18 06/25/18 05:15 05:15 05:42 WBC 5.6 RBC 4.48 Hgb 12.3 Hct 36.7 MCV 81.8 MCH 27.4 MCHC 33.5 RDW 14.0 Plt Count 280 MPV 7.3 L Absolute Neuts (auto) 2.4 Neutrophils % 42.0 L Lymphocytes % 38.7 Monocytes % 10.5 H Eosinophils % 8.1 H Basophils % 0.7 Nucleated RBC % 0 Sodium 134 L Potassium 4.1 Chloride 96 L Carbon Dioxide 30 Anion Gap 8 BUN 8 Creatinine 0.7 Creat Clearance w eGFR > 60 POC Glucometer [phone] Random Glucose 196 H Calcium 8.9 Phosphorus 3.4 Magnesium 2.0 Total Bilirubin 0.3 AST 30 ALT 35 Alkaline Phosphatase 59 Troponin I B-Natriuretic Peptide Total Protein 6.8 Albumin 3.2 L TB Test (QFT) Nil TB Test (QFT) Mitogen TB Test (QFT) Antigen TB Positive Criteria 06/25/18 06/25/18 13:34 15:51 WBC RBC Hgb Hct MCV MCH MCHC RDW Plt Count MPV Absolute Neuts (auto) Neutrophils % Lymphocytes % Monocytes % Eosinophils % Basophils % Nucleated RBC % Sodium Potassium Chloride Carbon Dioxide Anion Gap BUN Creatinine Creat Clearance w eGFR POC Glucometer [phone] Random Glucose 419 H* Calcium Phosphorus Magnesium Total Bilirubin AST ALT Alkaline Phosphatase Troponin I B-Natriuretic Peptide Total Protein Albumin TB Test (QFT) Nil TB Test (QFT) Mitogen TB Test (QFT) Antigen TB Positive Criteria Active Medications Generic Name Dose Route Start Last Admin Trade Name Freq PRN Reason Stop Dose Admin Aspirin 81 mg 06/25/18 10:00 06/25/18 10:17 Asa - PO 81 mg DAILY YANIRA Administration Atorvastatin Calcium 40 mg 06/25/18 22:00 Lipitor - PO HS YANIRA Azithromycin 500 mg 06/26/18 10:00 Zithromax - PO DAILY YANIRA Cefuroxime Axetil 500 mg 06/25/18 22:00 Ceftin - PO BID YANIRA Eucalyptus/Menthol/Phenol/Sorbitol 1 each 06/24/18 21:16 Cepastat Lozenge - MM Q4H PRN SORE THROAT Guaifenesin 5 ml 06/24/18 21:16 06/25/18 01:20 Diabetic Tussin Dm - PO 5 ml Q4H PRN Administration COUGH Heparin Sodium (Porcine) 5,000 unit 06/24/18 22:00 06/25/18 16:10 Heparin - SQ 5,000 unit TID YANIRA Administration Insulin Aspart 1 vial 06/24/18 22:00 06/25/18 13:01 Novolog Vial Sliding Scale - SQ Not Given ACHS [facility] Protocol Losartan Potassium 100 mg 06/25/18 10:00 06/25/18 10:18 Cozaar - PO 100 mg DAILY [facility] Administration ASSESSMENT/PLAN: Patient is a 73 year old male with history of hypertension, diabetes mellitus, recently returned from [place], presents with cough and subjective fevers. Acute bronchitis -Chest Xray (06/24) shows no acute pathology -Blood cultures negative at 48 hours incubation -Urine antigens for pneumonia, legionella -Urine cultures negative for growth -Follow Quantiferon -Ceftriaxone switched to Ceftin 500mg PO BID -Azithromycin 500mg PO daily -Diabetic-tussin 5mL Q4H PO PRN -ID consult (Dr. Herron) appreciated. -Follow Chest CT NSTEMI -Troponins peaked at 0.16 -EKG shows normal sinus rhythm at 91 BPM without ischemic changes. -Likely secondary to demand ischemia -Aspirin 81mg PO daily -Cardiology consult (Dr. Hooker) appreciated -Telemetry monitoring -Patient for MIBI stress test tomorrow. Hypertension -Losartan 100mg PO daily Hyperlipidemia -Atorvastatin 40mg PO HS Diabetes mellitus, non insulin dependent -Insulin sliding scale ACHS -Fingerstick blood glucose ACHS FEN -No IV fluids indicated. -Follow CMP -Diabetic, sodium controlled diet. NPO after midnight for MIBI stress test in morning. Prophylaxis -Heparin 5000u subq TID Disposition -Transfer to telemtry floor. Visit type - Emergency Visit Emergency Visit: Yes ED Registration Date: 06/22/18 Care time: The patient presented to the Emergency Department on the above date and was hospitalized for further evaluation of their emergent condition. - New Patient This patient is new to me today: No - Critical Care Critical Care patient: Yes Total Critical Care Time (in minutes): 35 Critical Care Statement: The care of this patient involved high complexity decision making to prevent further life threatening deterioration of the patient 's condition and/or to evaluate & treat vital organ system(s) failure or risk of failure. - Discharge Referral [facility]erred to [facility] Med P.C.: No
[2018-06-25] MEDS ORDERED: ATORVASTATIN CA 40 MG TABLET (FP) PO SCH (22:00)
[2018-06-25] MEDS: CEFUROXIME AXETIL 500 MG TABLET PO SCH (22:11)
[2018-06-26 06:16] LABS: BASO % 1.1 % (0-2.0); EOS % 9.7 % (0-4.5); HEMATOCRIT 42.9 % (35.4-49); HEMOGLOBIN 14.3 GM/dL (11.7-16.9); LYMPH % 42.5 % (8-40); MCH 27.6 pg (25.7-33.7); MCHC 33.4 g/dl (32.0-35.9); MEAN CELL VOLUME 82.7 fl (80-96); MEAN PLT VOLUME 7.3 fl (7.5-11.1); NEUT % 39.7 % (42.8-82.8); PLATELET COUNT 366 K/MM3 (134-434); RBC 5.19 M/mm3 (4.00-5.60); RDW 13.9 % (11.9-15.9); WHITE BLOOD COUNT 7.2 K/mm3 (4.0-10.0)
[2018-06-26] MEDS: INSULIN SLIDING SCALE (NOVOLOG) 1 VIAL SQ SCH ×3 (06:25→12:28)
[2018-06-26] MEDS: HEPARIN NA (PORCINE) 5,000 UNITS/ML 1ML VIAL SQ SCH ×2 (06:29→15:03)
[2018-06-26 06:46] LABS: ALBUMIN 3.8 g/dl (3.4-5.0); ALK PHOS 76 U/L (45-117); ANION GAP 8 MMOL/L (8-16); BILIRUBIN,TOTAL 0.3 mg/dL (0.2-1); BLOOD UREA NITROGEN 10 mg/dL (7-18); CALCIUM 9.1 mg/dL (8.5-10.1); CHLORIDE 94 mmol/L (98-107); CO2 30 mmol/L (21-32); CREATININE 0.8 mg/dL (0.55-1.3); GLUCOSE,RANDOM 247 mg/dL (74-106); POTASSIUM 3.6 mmol/L (3.5-5.1); SGOT/AST 40 U/L (15-37); SGPT/ALT 48 U/L (13-61); SODIUM 132 mmol/L (136-145); TOT PROT 8.3 g/dl (6.4-8.2)
[2018-06-26] MEDS ORDERED: amLODIPine BESYLATE 5 MG TABLET (FP) PO ONE (06:59)
[2018-06-26] MEDS: LOSARTAN POTASSIUM 50 MG TABLET (FP) PO SCH (09:02)
[2018-06-26] MEDS: ASPIRIN 81 MG CHEWABLE TABLETS PO SCH (09:02)
[2018-06-26] MEDS ORDERED: AZITHROMYCIN 250 MG TABLET PO SCH (10:00)
--- NOTE | 2018-06-26 11:53 | PN ---
Teaching Attending Note Name of Resident: Horace Pierre ATTENDING PHYSICIAN STATEMENT I saw and evaluated the patient. I reviewed the resident's note and discussed the case with the resident. I agree with the resident's findings and plan as documented. SUBJECTIVE: Feels better, cough improved. No fever/chills. No chest pain/ palpitations. OBJECTIVE: Afebrile, Hemodynamically Stable. Last Vital Signs Temp Pulse Resp BP Pulse Ox 98.7 F 99 H 20 187/100 H 100 06/26/18 08:00 06/26/18 08:00 06/26/18 08:00 06/26/18 08:00 06/24/18 21:06 HEENT - Atraumatic, Normocephalic Heart - S1, S2, RRR Lungs - clear to auscultation Abdomen - Soft, non-tender. Bowel Sound normal. Extremities - no calf tenderness Laboratory Results - last 24 hr 06/22/18 06/25/18 06/25/18 20:30 12:29 13:34 WBC RBC Hgb Hct MCV MCH MCHC RDW Plt Count MPV Absolute Neuts (auto) Neutrophils % Lymphocytes % Monocytes % Eosinophils % Basophils % Nucleated RBC % Sodium Potassium Chloride Carbon Dioxide Anion Gap BUN Creatinine Creat Clearance w eGFR POC Glucometer > 400 Random Glucose 419 H* Calcium Phosphorus Magnesium Total Bilirubin AST ALT Alkaline Phosphatase Troponin I Total Protein Albumin TB Test (QFT) Nil 0.73 TB Test (QFT) Mitogen >10.00 TB Test (QFT) Antigen >10.00 TB Positive Criteria 06/25/18 06/25/18 06/25/18 15:51 18:05 22:29 WBC RBC Hgb Hct MCV MCH MCHC RDW Plt Count MPV Absolute Neuts (auto) Neutrophils % Lymphocytes % Monocytes % Eosinophils % Basophils % Nucleated RBC % Sodium Potassium Chloride Carbon Dioxide Anion Gap BUN Creatinine Creat Clearance w eGFR POC Glucometer [phone] 301.48887 Random Glucose Calcium Phosphorus Magnesium Total Bilirubin AST ALT Alkaline Phosphatase Troponin I Total Protein Albumin TB Test (QFT) Nil TB Test (QFT) Mitogen TB Test (QFT) Antigen TB Positive Criteria 06/26/18 06/26/18 05:30 05:30 WBC 7.2 RBC 5.19 Hgb 14.3 Hct 42.9 D MCV 82.7 MCH 27.6 MCHC 33.4 RDW 13.9 Plt Count 366 D MPV 7.3 L Absolute Neuts (auto) 2.9 Neutrophils % 39.7 L Lymphocytes % 42.5 H Monocytes % 7.0 Eosinophils % 9.7 H Basophils % 1.1 Nucleated RBC % 0 Sodium 132 L Potassium 3.6 Chloride 94 L Carbon Dioxide 30 Anion Gap 8 BUN 10 Creatinine 0.8 Creat Clearance w eGFR > 60 POC Glucometer Random Glucose 247 H Calcium 9.1 Phosphorus 4.0 Magnesium 2.0 Total Bilirubin 0.3 AST 40 H ALT 48 Alkaline Phosphatase 76 Troponin I 0.14 H Total Protein 8.3 H Albumin 3.8 TB Test (QFT) Nil TB Test (QFT) Mitogen TB Test (QFT) Antigen TB Positive Criteria Current Medications Generic Name Dose Route Start Last Admin Trade Name Freq PRN Reason Stop Dose Admin Aspirin 81 mg 06/25/18 10:00 06/26/18 09:02 Asa - PO 81 mg DAILY YANIRA Administration Atorvastatin Calcium 40 mg 06/25/18 22:00 06/25/18 22:16 Lipitor - PO 40 mg HS YANIRA Administration Azithromycin 500 mg 06/26/18 10:00 Zithromax - PO DAILY YANIRA Cefuroxime Axetil 500 mg 06/25/18 22:00 06/25/18 22:11 Ceftin - PO 500 mg BID YANIRA Administration Eucalyptus/Menthol/Phenol/Sorbitol 1 each 06/24/18 21:16 Cepastat Lozenge - MM Q4H PRN SORE THROAT Guaifenesin 5 ml 06/24/18 21:16 06/25/18 22:17 Diabetic Tussin Dm - PO 5 ml Q4H PRN Administration COUGH Heparin Sodium (Porcine) 5,000 unit 06/24/18 22:00 06/26/18 06:29 Heparin - SQ 5,000 unit TID YANIRA Administration Insulin Aspart 1 vial 06/24/18 22:00 06/26/18 06:36 Novolog Vial Sliding Scale - SQ Not Given ACHS [facility] Protocol Losartan Potassium 100 mg 06/25/18 10:00 06/26/18 09:02 Cozaar - PO 100 mg DAILY YANIRA Administration ASSESSMENT AND PLAN: 73 year old male with HTN, CAD, DM 2, HLD, presented with increasing SOB and productive cough ongoing for several weeks while he was in [place], without chest pain/hemoptysis. In ED, he was found to be septic with bilateral wheeze, Fever, lactic acidosis, tachycardia, hypotension. 1. Sepsis secondary to Community Acquired Pneumonia - sepsis resolved. CT Chest - LLL infiltrate. Currently afebrile, hemodynamically stable. Legionella and Strep Ag neg. Blood Cx neg so far. Sputum Cx presumptive MSSA Continue Cephalosporin (Total 7 days) and Azithro (total 5 days) 2. Troponin egression, likely sec to demand ischemia in setting of underlying CAD Denies chest pain TropI max 0.16 ECG - no acute changes Echo - trivial pericardial effusion On Aspirin and Statin MIBI negative. Medically stable for discharge. 3. DM 2 - Maintain on sliding scale insulin. Sitagliptin, Metformin, Glipizide held. 4. HTN - Home anti-hypertensive Losartan resumed 5. HLD - continue Statin DVT Px - Heparin SQ
[2018-06-26] MEDS ORDERED: PT OWN MED DRAWER 7, Y5N ONE ×2 (12:15→15:00)
[2018-06-26] MEDS: CEFUROXIME AXETIL 500 MG TABLET PO SCH (12:21)
--- NOTE | 2018-06-26 13:14 | PN ---
Teaching Attending Note Name of Resident: Alison Anne ATTENDING PHYSICIAN STATEMENT I saw and evaluated the patient. I reviewed the resident's note and discussed the case with the resident. I agree with the resident's findings and plan as documented. SUBJECTIVE: Patient seen and examined in the ICU. Just returned from stress test. Refused sleep apnea screen overnight. Still with some nonproductive cough. OBJECTIVE: Intake & Output 06/23/18 06/24/18 06/25/18 06/26/18 23:59 23:59 23:59 23:59 Intake Total 2740 2100 1500 240 Output Total 4 Balance 2740 2100 1496 240 Weight 157 lb 157 lb 6.4 oz 153 lb 14.122 oz Last Vital Signs Temp Pulse Resp BP Pulse Ox 98.7 F 90 18 119/83 100 06/26/18 08:00 06/26/18 12:30 06/26/18 12:30 06/26/18 12:30 06/24/18 21:06 Active Medications Aspirin (Asa -) 81 mg PO DAILY [facility] Last Admin: 06/26/18 09:02 Dose: 81 mg Atorvastatin Calcium (Lipitor -) 40 mg PO HS [facility] Last Admin: 06/25/18 22:16 Dose: 40 mg Azithromycin (Zithromax -) 500 mg PO DAILY [facility] Cefuroxime Axetil (Ceftin -) 500 mg PO BID [facility] Last Admin: 06/26/18 12:21 Dose: 500 mg Eucalyptus/Menthol/Phenol/Sorbitol (Cepastat Lozenge -) 1 each MM Q4H PRN PRN Reason: SORE THROAT Guaifenesin (Diabetic Tussin Dm -) 5 ml PO Q4H PRN PRN Reason: COUGH Last Admin: 06/25/18 22:17 Dose: 5 ml Heparin Sodium (Porcine) (Heparin -) 5,000 unit SQ TID [facility] Last Admin: 06/26/18 06:29 Dose: 5,000 unit Insulin Aspart (Novolog Vial Sliding Scale -) 1 vial SQ ACHS [facility]; Protocol Last Admin: 06/26/18 12:28 Dose: 6 units Losartan Potassium (Cozaar -) 100 mg PO DAILY [facility] Last Admin: 06/26/18 09:02 Dose: 100 mg Gen: NAD in chair Heart: RRR Lung: decreased breath sounds at the bases Abd: soft, nontender Ext: no edema Laboratory Results - last 24 hr 06/22/18 06/25/18 06/25/18 20:30 12:29 13:34 WBC RBC Hgb Hct MCV MCH MCHC RDW Plt Count MPV Absolute Neuts (auto) Neutrophils % Lymphocytes % Monocytes % Eosinophils % Basophils % Nucleated RBC % Sodium Potassium Chloride Carbon Dioxide Anion Gap BUN Creatinine Creat Clearance w eGFR POC Glucometer > 400 Random Glucose 419 H* Calcium Phosphorus Magnesium Total Bilirubin AST ALT Alkaline Phosphatase Troponin I Total Protein Albumin TB Test (QFT) Nil 0.73 TB Test (QFT) Mitogen >10.00 TB Test (QFT) Antigen >10.00 TB Positive Criteria 06/25/18 06/25/18 06/25/18 15:51 18:05 22:29 WBC RBC Hgb Hct MCV MCH MCHC RDW Plt Count MPV Absolute Neuts (auto) Neutrophils % Lymphocytes % Monocytes % Eosinophils % Basophils % Nucleated RBC % Sodium Potassium Chloride Carbon Dioxide Anion Gap BUN Creatinine Creat Clearance w eGFR POC Glucometer 339.85427 271.12384 301.48732 Random Glucose Calcium Phosphorus Magnesium Total Bilirubin AST ALT Alkaline Phosphatase Troponin I Total Protein Albumin TB Test (QFT) Nil TB Test (QFT) Mitogen TB Test (QFT) Antigen TB Positive Criteria 06/26/18 06/26/18 06/26/18 05:30 05:30 06:11 WBC 7.2 RBC 5.19 Hgb 14.3 Hct 42.9 D MCV 82.7 MCH 27.6 MCHC 33.4 RDW 13.9 Plt Count 366 D MPV 7.3 L Absolute Neuts (auto) 2.9 Neutrophils % 39.7 L Lymphocytes % 42.5 H Monocytes % 7.0 Eosinophils % 9.7 H Basophils % 1.1 Nucleated RBC % 0 Sodium 132 L Potassium 3.6 Chloride 94 L Carbon Dioxide 30 Anion Gap 8 BUN 10 Creatinine 0.8 Creat Clearance w eGFR > 60 POC Glucometer 259.21796 Random Glucose 247 H Calcium 9.1 Phosphorus 4.0 Magnesium 2.0 Total Bilirubin 0.3 AST 40 H ALT 48 Alkaline Phosphatase 76 Troponin I 0.14 H Total Protein 8.3 H Albumin 3.8 TB Test (QFT) Nil TB Test (QFT) Mitogen TB Test (QFT) Antigen TB Positive Criteria 06/26/18 12:27 WBC RBC Hgb Hct MCV MCH MCHC RDW Plt Count MPV Absolute Neuts (auto) Neutrophils % Lymphocytes % Monocytes % Eosinophils % Basophils % Nucleated RBC % Sodium Potassium Chloride Carbon Dioxide Anion Gap BUN Creatinine Creat Clearance w eGFR POC Glucometer 299.70245 Random Glucose Calcium Phosphorus Magnesium Total Bilirubin AST ALT Alkaline Phosphatase Troponin I Total Protein Albumin TB Test (QFT) Nil TB Test (QFT) Mitogen TB Test (QFT) Antigen TB Positive Criteria ASSESSMENT AND PLAN: Viral Syndrome/URI Sepsis +Troponins likely Demand Ischemia Lactic Acidosis improved HTN DM - antibiotics per ID: agree to switch to oral - glucose control - DVT prophylaxis - No Pulmonary contraindication for D/C home Dr Montesinos
--- NOTE | 2018-06-26 14:28 | DS ---
Physical Exam: SUBJECTIVE: Patient seen and examined at bedside this morning. He admits improving nonproductive cough. He denies subjective fevers or chills. Patient denies new acute complaints. OBJECTIVE: Vital Signs Period Temp Pulse Resp BP Sys/Amador Pulse Ox Last 24 Hr 98 F-98.7 F 67-99 18-24 119-188/62-100 PHYSICAL EXAM GENERAL: The patient is awake, alert, and fully oriented, in no acute distress. HEAD: Normocephalic, atraumatic EYES: PERRL, extraocular movements intact, sclera anicteric, conjunctiva clear. ENT: Oropharynx clear without exudates, moist mucous membranes. NECK: Supple without lymphadenopathy LUNGS: Breath sounds equal, faint rhonchi and crackles auscultated bilaterally. No wheezes. No accessory muscle use. HEART: Regular rate and rhythm, S1, S2 without murmur, rub or gallop. ABDOMEN: Soft, nontender, nondistended. Normoactive bowel sounds, no guarding, no rebound tenderness. EXTREMITIES: 2+ pulses, warm, well-perfused, no lower extremity edema. NEUROLOGICAL: CN II-XII grossly intact. Sensation grossly intact b/l upper and lower extremities. Strength 5/5 b/l upper and lower extremities. PSYCH: Normal mood, normal affect upon my encounter. SKIN: Warm, dry. LABS Laboratory Results - last 24 hr 06/22/18 06/25/18 06/25/18 20:30 12:29 15:51 WBC RBC Hgb Hct MCV MCH MCHC RDW Plt Count MPV Absolute Neuts (auto) Neutrophils % Lymphocytes % Monocytes % Eosinophils % Basophils % Nucleated RBC % Sodium Potassium Chloride Carbon Dioxide Anion Gap BUN Creatinine Creat Clearance w eGFR POC Glucometer > [phone] Random Glucose Calcium Phosphorus Magnesium Total Bilirubin AST ALT Alkaline Phosphatase Troponin I Total Protein Albumin TB Test (QFT) Nil 0.73 TB Test (QFT) Mitogen >10.00 TB Test (QFT) Antigen >10.00 TB Positive Criteria 06/25/18 06/25/18 06/26/18 18:05 22:29 05:30 WBC 7.2 RBC 5.19 Hgb 14.3 Hct 42.9 D MCV 82.7 MCH 27.6 MCHC 33.4 RDW 13.9 Plt Count 366 D MPV 7.3 L Absolute Neuts (auto) 2.9 Neutrophils % 39.7 L Lymphocytes % 42.5 H Monocytes % 7.0 Eosinophils % 9.7 H Basophils % 1.1 Nucleated RBC % 0 Sodium Potassium Chloride Carbon Dioxide Anion Gap BUN Creatinine Creat Clearance w eGFR POC Glucometer [phone] Random Glucose Calcium Phosphorus Magnesium Total Bilirubin AST ALT Alkaline Phosphatase Troponin I Total Protein Albumin TB Test (QFT) Nil TB Test (QFT) Mitogen TB Test (QFT) Antigen TB Positive Criteria 06/26/18 06/26/18 06/26/18 05:30 06:11 12:27 WBC RBC Hgb Hct MCV MCH MCHC RDW Plt Count MPV Absolute Neuts (auto) Neutrophils % Lymphocytes % Monocytes % Eosinophils % Basophils % Nucleated RBC % Sodium 132 L Potassium 3.6 Chloride 94 L Carbon Dioxide 30 Anion Gap 8 BUN 10 Creatinine 0.8 Creat Clearance w eGFR > 60 POC Glucometer [phone] Random Glucose 247 H Calcium 9.1 Phosphorus 4.0 Magnesium 2.0 Total Bilirubin 0.3 AST 40 H ALT 48 Alkaline Phosphatase 76 Troponin I 0.14 H Total Protein 8.3 H Albumin 3.8 TB Test (QFT) Nil TB Test (QFT) Mitogen TB Test (QFT) Antigen TB Positive Criteria HOSPITAL COURSE: Date of Admission:06/22/18 Date of Discharge: 06/26/18 Patient is a 73 year old male with history of hypertension, diabetes mellitus, recently returned from [place], presents with cough and subjective fevers. Upon admission patient fulfilled SIRS criteria; temperature 101F, tachycardic to 119BPM. Chest Xray upon admission showed no acute pathology. CT chest showed left lower lobe infiltrate concerning for pneumonia. Sputum culture grew Staph aureus. Urine antigens negative for Pneumonia, Legionella. Blood and urine cultures negative for growth. Patient was started on Ceftriaxone and Azithromycin for sepsis secondary to community acquired pneumonia. Quantiferon was noted to be positive, however chest xray was clear. Infectious disease consult discussed importance of outpatient follow up in deciding initiation of therapy. EKG showed normal sinus rhythm at 91 BPM without ischemic changes. Troponins peaked at 0.16. Patient was evaluated by cardiology, and started on Aspirin, and Atorvastatin. He was placed in telemetry. Cardiac ECHO showed LV size, thickness, function normal EF 60-65%, normal RV function, and trivial pericardial effusion. MIBI stress test with normal result; no ischemic changes or arrhythmias with exercise, normal myocardial perfusion. LVEF 67%. Case discussed with cardiology, pulmonology, and patient cleared for discharge. Patient was discharged home with Ceftin and Azithromycin, to follow up with primary care physician, environmental associate, semiconductor packages leak tester, and infectious disease physician. Minutes to complete discharge: 45 Discharge Summary Reason For Visit: ILLNESS ASSOCIATED WITH TRAVEL, FEVER, COUGH, SEPS Current Active Problems Cough (Acute) Elevated troponin I level (Acute) Fever (Acute) HTN (hypertension) (Acute) Hyponatremia (Acute) Sepsis (Acute) Sleep apnea (Acute) Tachycardia (Acute) Travel-related illness (Acute) T2DM (type 2 diabetes mellitus) (Chronic) Condition: Stable - Instructions Diet, Activity, Other Instructions: You were admitted to the hospital with complaint of cough, and shortness of breath. You were evaluated by infectious disease physician, and environmental associate. Your heart proteins were noted to be elevated, and you were evaluated by the semiconductor packages leak tester. You had a stress test of the heart performed with normal result. You were noted to have a possible pneumonia within your lung and were stated on antibiotics. Your Quantiferon blood test was positive, however your chest xray was clear, without signs of acute tuberculosis infection. It is very important that you follow up these results with your primary care physician and environmental associate upon discharge. Continue taking your home medications as directed. You will begin taking Aspirin 81mg daily. Begin taking Atorvastatin 40mg daily. You will follow up with your primary care physician within one week for blood-work (CBC, BMP, liver function testing). You will continue taking antibiotics Ceftin 500mg every 12 hours, and Azithromycin 500mg daily for the next two days. Follow up with your primary care physician within two- three days after discharge. Follow up with environmental associate (Dr. Shipman) within one week of discharge. Follow up with semiconductor packages leak tester (Dr. Pulido) within one week of discharge. It is important that you follow up with infectous disease physician (Dr. Salinas) within one week of discharge. Return to the nearest Emergency Department if you experience worsening symptoms , subjective fevers, chills, shortness of breath, chest pain, palpitations, abdominal pain, nausea, vomiting, trauma, fall, loss of consciousness. Referrals: Stone Salinas MD [Staff Physician] - Gabe Pulido MD [Staff Physician] - ON STAFF,NOT [Non Staff, Medical] - Tyler Shipman MD, MD [Staff Physician] - Disposition: HOME - Home Medications Comprehensive Discharge Medication List: Ambulatory Orders Glipizide 5 mg PO DAILY 06/22/18 Losartan Potassium 100 mg PO DAILY 06/22/18 Metformin HCl [Glucophage] 500 mg PO BID 06/22/18 Sitagliptin Phosphate [Januvia] 50 mg PO DAILY 06/22/18 Aspirin [ASA -] 81 mg PO DAILY 30 Days #30 tab.chew 06/26/18 Atorvastatin Ca [Lipitor] 40 mg PO HS 30 Days #30 tablet 06/26/18 Azithromycin 500 mg PO DAILY 2 Days #2 tablet 06/26/18 Cefuroxime Axetil [Ceftin -] 500 mg PO Q12H 2 Days #4 tablet 06/26/18 This patient is new to me today: No Emergency Visit: Yes ED Registration Date: 06/22/18 Care time: The patient presented to the Emergency Department on the above date and was hospitalized for further evaluation of their emergent condition. Critical Care patient: No - Discharge Referral Referred to [facility] Med P.C.: No
--- NOTE | 2018-06-26 14:41 | PN ---
Progress Note (short form) - Note Progress Note: SUBJECTIVE Patient seen and examined at the bedside. No acute complaints. Denies chest pain , shortness of breath, or fever. Continues to have cough and reports that it is non-productive. Hypertensive overnight with periodic apneic episodes while sleeping. HOD#5. OBJECTIVE Vital Signs Temperature 98.7 F 06/26/18 08:00 Pulse Rate 90 06/26/18 12:30 Respiratory Rate 18 06/26/18 12:30 Blood Pressure 119/83 06/26/18 12:30 O2 Sat by Pulse Oximetry (%) 100 06/24/18 21:06 General: Awake, alert, and fully oriented, in no acute distress Head: No signs of trauma Eyes: EOMI, sclera anicteric ENT: Moist mucus membranes Neck: Normal ROM, supple Lungs: Scattered rhonchi Cardio: Regular rhythm, S1 and S2 present Abdomen: Soft, nontender Extremities: Normal range of motion, Distal pulses present SKIN: Warm, Dry, normal turgor Neurologic: Cranial nerves II through XII grossly intact. Normal speech ASSESSMENT 73 yr old man with DM, HTN presents with productive cough and fever returning from international travel found to be tachycardic with elevated troponins, hyponatremia, and labile blood pressure. qSOFA=2 (for RR and BP). HOD#5 PLAN CARDIO Elevated troponin, likely due to demand ischemia -Tpn=0.14 (from 0.16) -Cardiac stress test performed today: normal with LVEF 67% -EKG on 06/22/18 with sinus tachycardia but no ST depressions/elevations -Defer beta-blockers at this time -continue home ASA 81mg -ECHO without acute findings -plan to consult Cardiology Chronic Hypertension -on home losartan PULM CXR without acute pathology R/o legionella Coverage with Ceftriaxone and Azithromycin Periodic apneic episodes while sleeping, suspicious for CORTEZ -Sleep study ordered which patient declined RENAL Hyponatremia, unclear etiology -Aq=485 (from 133) ENDO Chronic DM -BGM, NISS ID qSOFA=2, likely due to community-acquired pneumonia -lactate 1.3 (from 2.9) -ID following -IV Ceftriaxone and Azithromycin transitioned to po Ceftin -blood and urine cultures: no growth to date -Blood parasites negative FEN Monitor electrolytes -Replete as needed Advanced to diet 06/23/18 PPX DVT: Heparin GI: not needed at this time Disposition: Patient is safe for transfer to telemetry or d/c if inpatient team is amenable
--- NOTE | 2018-06-26 15:26 | PN ---
Progress Note, Physician Chief Complaint: PT A&Ox3; OOB in chair; asymptomatic. History of Present Illness: Patient is a 73-year-old male (b. [place]) with history of Laughlin's palsy, diabetes , HTN, brought in by family for complaint of a cough 3 weeks. Patient was away visiting in [place] when he developed this cough, initially was productive of yellow sputum, however now nonproductive. States he's been having body ache, felt hot and cold, but did not take his temperature. Yesterday, had several doses of Motrin. Denies dysuria, nausea, vomiting, chest pain. - Current Medication List Current Medications: Active Medications Aspirin (Asa -) 81 mg PO DAILY [facility] Last Admin: 06/26/18 09:02 Dose: 81 mg Atorvastatin Calcium (Lipitor -) 40 mg PO HS [facility] Last Admin: 06/25/18 22:16 Dose: 40 mg Azithromycin (Zithromax -) 500 mg PO DAILY [facility] Cefuroxime Axetil (Ceftin -) 500 mg PO BID [facility] Last Admin: 06/26/18 12:21 Dose: 500 mg Eucalyptus/Menthol/Phenol/Sorbitol (Cepastat Lozenge -) 1 each MM Q4H PRN PRN Reason: SORE THROAT Guaifenesin (Diabetic Tussin Dm -) 5 ml PO Q4H PRN PRN Reason: COUGH Last Admin: 06/25/18 22:17 Dose: 5 ml Heparin Sodium (Porcine) (Heparin -) 5,000 unit SQ TID [facility] Last Admin: 06/26/18 06:29 Dose: 5,000 unit Insulin Aspart (Novolog Vial Sliding Scale -) 1 vial SQ ACHS [facility]; Protocol Last Admin: 06/26/18 12:28 Dose: 6 units Losartan Potassium (Cozaar -) 100 mg PO DAILY [facility] Last Admin: 06/26/18 09:02 Dose: 100 mg - Objective Vital Signs: Vital Signs Temperature 98.7 F 06/26/18 08:00 Pulse Rate 90 06/26/18 12:30 Respiratory Rate 18 06/26/18 12:30 Blood Pressure 119/83 06/26/18 12:30 O2 Sat by Pulse Oximetry (%) 100 06/24/18 21:06 Constitutional: Yes: Calm Eyes: Yes: WNL HENT: Yes: WNL Neck: Yes: WNL Cardiovascular: Yes: Regular Rate and Rhythm, S1, S2 Respiratory: Yes: Regular Gastrointestinal: Yes: Soft ...Rectal Exam: Yes: Deferred Genitourinary: No: Anuria Musculoskeletal: Yes: WNL Labs: CBC, BMP 06/26/18 05:30 06/26/18 05:30 INR, PTT INR 1.11 (0.83-1.09) H 06/22/18 19:58 Problem List - Problems (1) Cough Assessment/Plan: On antibiotics. Code(s): R05 - COUGH (2) Elevated troponin I level Assessment/Plan: EKG: sinus tachycardia; otherwise normal EKG. Multiple factors, including sepsis, sleep apnea, HTN, and CHF are contributors to demand ischemia. Denies personal or family hx of heart disease; nonsmoker. HTN, DM. Pt states he had a negative stress test at [facility] two years ago "after they told me I needed a cardiac cath because I had had a heart attack". He will require coronary artery evaluation once stable, but is presently reluctant to consider this "until my cough is gone and I go home". 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 Addendum: Stress MIBI today: no ischemia; fair exercise functional capacity (walked 5 minutes using Hans protocol). From a cardiac perspective, pt can be followed as an outpatient. Code(s): R74.8 - ABNORMAL LEVELS OF OTHER SERUM ENZYMES (3) HTN (hypertension) Code(s): I10 - ESSENTIAL (PRIMARY) HYPERTENSION (4) T2DM (type 2 diabetes mellitus) Code(s): E11.9 - TYPE 2 DIABETES MELLITUS WITHOUT COMPLICATIONS (5) Sleep apnea Code(s): G47.30 - SLEEP APNEA, UNSPECIFIED Assessment/Plan CCU time spent evaluating pt, formulating plan: 35 minutes.
[2018-06-26 15:45] VITALS: BP 135/81; PULSE 85; TEMP 98
== END 2018-06-26 17:27 | disposition home or self-care (01) | DRG 871 ==
LOC: JERFT 18:33 → JER 18:33 → JERBED 21:28 → JICU 23:25
PROVIDERS: ADMIT Internal Medicine
DX: A41.01 Sepsis due to Methicillin susceptible Staphylococcus aureus (principal); J18.9 Pneumonia, unspecified organism; I24.8 Other forms of acute ischemic heart disease; E87.1 Hypo-osmolality and hyponatremia; E87.2 Acidosis; E11.9 Type 2 diabetes mellitus without complications; J44.9 Chronic obstructive pulmonary disease, unspecified; I10 Essential (primary) hypertension; J20.9 Acute bronchitis, unspecified; G47.30 Sleep apnea, unspecified; G51.0 Bell's palsy; I25.10 Atherosclerotic heart disease of native coronary artery without angina pectoris; E78.5 Hyperlipidemia, unspecified; I95.9 Hypotension, unspecified; Z87.891 Personal history of nicotine dependence; Z79.84 Long term (current) use of oral hypoglycemic drugs
CPT/HCPCS: 36415; 71045-TC-FY; 71046-TC-FY; 71250-TC; 78452-TC; 80048; 80053; 80061; 81003; 82550; 82553; 82803; 82947; 82962; 83605; 83721; 83735; 83880; 84100; 84484; 85025; 85610; 86480; 87040; 87070; 87086; 87186; 87205; 87207; 87633; 87804; 87807; 87880; 87899; 93005; 93010; 93017; 93306-TC; 94640; 99285-25; A9502; J0131; J1644; J7030

== ENCOUNTER 2022-02-24 14:10 | Emergency (ER) | payer OTHER, BC ==
[2022-02-24 14:20] VITALS: BP 145/72; PULSE 110; RESP 19; TEMP 101.3; BMI 27.4
[2022-02-24] MEDS ORDERED: ACETAMINOPHEN 500 MG TABLET (FP) PO ONE (14:52)
[2022-02-24] MEDS ORDERED: ACETAMINOPHEN 500 MG TABLET (FP) ONE (14:53)
== END 2022-02-24 17:09 | disposition home or self-care (01) ==
LOC: JER 14:10
DX: U07.1 COVID-19 (principal)
CPT/HCPCS: 0241U-QW; 99283-25